=== PATIENT | female | born 1945 | race Caucasian/White ===

== ENCOUNTER 2017-03-16 13:34 | Emergency (ER) | payer MEDICARE ==
--- NOTE | 2017-03-16 13:42 | ED ---
General Adult HPI - General Stated complaint: WEAKNESS X 3 DAYS Time Seen by Provider: 03/16/17 13:35 Source: RN notes reviewed - History of Present Illness Initial comments: This is a 71-year-old female who presents to the emergency department with past medical history significant for hypertension and COPD as well as atrial fibrillation. Patient comes in emergency department today stating that she has become weaker and weaker over the last 24 hours. Patient states yesterday she was feeling exhausted but this morning she was so exhausted that she couldn't get out of bed and walk around. Patient denies any other symptoms. Patient denies being out in the hot weather. Patient denies headache patient denies lightheadedness patient denies any near syncopal episode. Patient denies any numbness or weakness. Patient denies any palpitations chest pain or difficulty breathing. Patient denies any shortness of breath. Patient denies any recent fever chills or cough. Patient denies abdominal pain patient denies nausea vomiting diarrhea. Patient denies any dysuria hematuria urinary frequency. Patient states that last time she had this kind of fatigue and exhaustion she had a urinary tract infection without symptoms as well and it turned out that she was septic. - Related Data Home Medications Medication Instructions Recorded Confirmed Albuterol Inhaler [Ventolin Hfa 2 puff INHALATION RT-QID PRN 04/13/16 03/16/17 Inhaler] Atorvastatin [Lipitor] 20 mg PO HS 04/13/16 03/16/17 Calcium Carbonate [Tums] 500 mg PO TID PRN 04/13/16 03/16/17 Ferrous Sulfate [Feosol] 325 mg PO Q72H 04/13/16 03/16/17 Flecainide Acetate 50 mg PO Q12HR 04/13/16 03/16/17 Fluticasone/Salmeterol [Advair 1 puff INHALATION RT-BID 04/13/16 03/16/17 500-50 Diskus] Sertraline HCl [Zoloft] 100 mg PO DAILY 04/13/16 03/16/17 rOPINIRole HCL [Requip] 0.5 mg PO HS 04/13/16 03/16/17 Furosemide [Lasix] 40 mg PO BID 06/02/16 03/16/17 Acetaminophen Tab [Tylenol Tab] 500 - 1,000 mg PO Q6HR PRN 03/16/17 03/16/17 Calcium Carbonate/Vitamin D3 1 tab PO BID 03/16/17 03/16/17 [Calcium 600-Vit D3 200 Tablet] Docusate [Colace] 100 mg PO DAILY 03/16/17 03/16/17 Famotidine 20 mg PO DAILY 03/16/17 03/16/17 HYDROcodone/APAP 7.5-325MG [[place] 1 tab PO DAILY PRN 03/16/17 03/16/17 7.5-325] Ipratropium-Albuterol Nebulize 3 ml INHALATION RT-TID 03/16/17 03/16/17 [Duoneb 0.5 mg-3 mg/3 ml Soln] Levothyroxine Sodium [Synthroid] 137 mcg PO DAILY 03/16/17 03/16/17 Sennosides [Senna Lax] 8.6 mg PO BID PRN 03/16/17 03/16/17 guaiFENesin [Mucinex] 600 mg PO DAILY PRN 03/16/17 03/16/17 Previous Rx's Medication Instructions Recorded Rivaroxaban [Xarelto] 15 mg PO W/SUPPER tab 04/15/16 Potassium Chloride ER [K-Dur 20] 20 meq PO DAILY #30 tab.er.prt 04/18/16 ALPRAZolam [Xanax] 0.25 mg PO HS PRN #10 tablet 06/05/16 Allergies Allergy/AdvReac Type Severity Reaction Status Date / Time codeine Allergy Unknown Verified 03/16/17 14:19 methylprednisolone Allergy Unknown Verified 03/16/17 14:19 [From Medrol] Penicillins Allergy Unknown Verified 03/16/17 14:19 pentazocine Allergy Unknown Verified 03/16/17 14:19 hydromorphone HCl AdvReac Hallucinati Verified 03/16/17 14:19 [From Dilaudid] ons Review of Systems ROS Statement: Those systems with pertinent positive or pertinent negative responses have been documented in the HPI. ROS Other: All systems not noted in ROS Statement are negative. Past Medical History Past Medical History: Atrial Fibrillation, Asthma, Heart Failure, COPD, GERD/ Reflux, Hyperlipidemia, Hypertension History of Any Multi-Drug Resistant Organisms: None Reported Past Surgical History: Appendectomy, Cholecystectomy, Orthopedic Surgery, Tonsillectomy, Tubal Ligation Additional Past Surgical History / Comment(s): right shoulder surgery and pain, bilateral knee replacements Past Anesthesia/Blood Transfusion Reactions: No Reported Reaction Past Psychological History: Anxiety, Depression, Panic Disorder Smoking Status: Former smoker Past Alcohol Use History: None Reported Past Drug Use History: None Reported - Past Family History Mother Additional Family Medical History / Comment(s): emphysema Father Family Medical History: CVA/TIA General Exam - General Exam Comments Initial Comments: GENERAL: Patient is well-developed and well-nourished. Patient is nontoxic and well- hydrated and is in mild distress. ENT: Neck is soft and supple. No significant lymphadenopathy is noted. Oropharynx is clear. Moist mucous membranes. Neck has full range of motion without eliciting any pain. EYES: The sclera were anicteric and conjunctiva were pink and moist. Extraocular movements were intact and pupils were equal round and reactive to light. Eyelids were unremarkable. PULMONARY: Unlabored respirations. Good breath sounds bilaterally. No audible rales rhonchi or wheezing was noted. CARDIOVASCULAR: There is a regular rate and rhythm without any murmurs gallops or rubs. ABDOMEN: Soft and nontender with normal bowel sounds. No palpable organomegaly was noted. There is no palpable pulsatile mass. SKIN: Skin is clear with no lesions or rashes and otherwise unremarkable. NEUROLOGIC: Patient is alert and oriented x3. Cranial nerves II through XII are grossly intact. Motor and sensory are also intact. Normal speech, volume and content. Symmetrical smile. MUSCULOSKELETAL: Normal extremities with adequate strength and full range of motion. No lower extremity swelling or edema. No calf tenderness. LYMPHATICS: No significant lymphadenopathy is noted PSYCHIATRIC: Normal psychiatric evaluation. Normal interpersonal interactions appears functionally intact in deals appropriately with others. No signs of depression. No signs of anxiety. Course Vital Signs 03/16/17 13:41 Temperature 97.4 F L Pulse Rate 60 Respiratory 18 Rate Blood Pressure 135/61 O2 Sat by Pulse 94 L Oximetry Medical Decision Making - Medical Decision Making EKG shows sinus bradycardia 59 bpm SD interval was 136 dresses 92 QT interval 474 QTC is 469. Patient's EKG has a lot of noise and it however there is some inverted T waves in leads 3 and aVF that were not there in an old EKG. Psych that he has some poor R-wave progression but there is no obvious ST segment elevation though the computer indicated that there is I went and discussed the results with the patient's she indicated to me that maybe she started because she can't sleep more than 2 hours a night. Patient states she supposed be wearing BiPAP but she does not wear. Patient states she' ll follow-up with her primary medical care doctor to see if he can prescribe her something for sleep. Patient does not want to get anything for sleep here today. - Lab Data Result diagrams: 03/16/17 14:45 03/16/17 14:45 Lab Results 03/16/17 03/16/17 03/16/17 Range/Units 14:09 14:45 14:45 WBC (3.8-10.6) k/uL RBC (3.80-5.40) m/uL Hgb (11.4-16.0) gm/dL Hct (34.0-46.0) % MCV (80.0-100.0) fL MCH (25.0-35.0) pg MCHC (31.0-37.0) g/dL RDW (11.5-15.5) % Plt Count (150-450) k/uL Neutrophils % % Lymphocytes % % Monocytes % % Eosinophils % % Basophils % % Neutrophils # (1.3-7.7) k/uL Lymphocytes # (1.0-4.8) k/uL Monocytes # (0-1.0) k/uL Eosinophils # (0-0.7) k/uL Basophils # (0-0.2) k/uL PT (9.0-12.0) sec INR (<1.1) APTT (22.0-30.0) sec Sodium 140 (137-145) mmol/L Potassium 4.1 (3.5-5.1) mmol/L Chloride 100 (98-107) mmol/L Carbon Dioxide 30 (22-30) mmol/L Anion Gap 10 mmol/L BUN 17 (7-17) mg/dL Creatinine 0.75 (0.52-1.04) mg/dL Est GFR (MDRD) Af Amer >60 (>60 ml/min/1.73 sqM) Est GFR (MDRD) Non-Af >60 (>60 ml/min/1.73 sqM) Glucose 89 (74-99) mg/dL Calcium 9.4 (8.4-10.2) mg/dL Magnesium 1.9 (1.6-2.3) mg/dL Total Bilirubin 0.9 (0.2-1.3) mg/dL AST 24 (14-36) U/L ALT 20 (9-52) U/L Alkaline Phosphatase 101 (38-126) U/L Total Creatine Kinase 67 (30-135) U/L CK-MB (CK-2) 1.3 (0.0-2.4) ng/mL CK-MB (CK-2) Rel Index 1.9 Troponin I 0.014 (0.000-0.034) ng/mL Total Protein 6.2 L (6.3-8.2) g/dL Albumin 3.9 (3.5-5.0) g/dL TSH 0.866 (0.465-4.680) mIU/L Free T4 1.89 (0.78-2.19) ng/dL Urine Color Light Yellow Urine Appearance Clear (Clear) Urine pH 7.5 (5.0-8.0) Ur Specific [place] 1.008 (1.001-1.035) Urine Protein Negative (Negative) Urine Glucose (UA) Negative (Negative) Urine Ketones Negative (Negative) Urine Blood Negative (Negative) Urine Nitrite Negative (Negative) Urine Bilirubin Negative (Negative) Urine Urobilinogen <2.0 (<2.0) mg/dL Ur Leukocyte Esterase Negative (Negative) 03/16/17 03/16/17 Range/Units 14:45 14:45 WBC 6.1 (3.8-10.6) k/uL RBC 4.70 (3.80-5.40) m/uL Hgb 14.5 (11.4-16.0) gm/dL Hct 42.8 (34.0-46.0) % MCV 91.1 (80.0-100.0) fL MCH 30.9 (25.0-35.0) pg MCHC 34.0 (31.0-37.0) g/dL RDW 13.5 (11.5-15.5) % Plt Count 202 (150-450) k/uL Neutrophils % 70 % Lymphocytes % 17 % Monocytes % 6 % Eosinophils % 3 % Basophils % 1 % Neutrophils # 4.3 (1.3-7.7) k/uL Lymphocytes # 1.0 (1.0-4.8) k/uL Monocytes # 0.4 (0-1.0) k/uL Eosinophils # 0.2 (0-0.7) k/uL Basophils # 0.0 (0-0.2) k/uL PT 9.9 (9.0-12.0) sec INR 1.0 (<1.1) APTT 23.1 (22.0-30.0) sec Sodium (137-145) mmol/L Potassium (3.5-5.1) mmol/L Chloride (98-107) mmol/L Carbon Dioxide (22-30) mmol/L Anion Gap mmol/L BUN (7-17) mg/dL Creatinine (0.52-1.04) mg/dL Est GFR (MDRD) Af Amer (>60 ml/min/1.73 sqM) Est GFR (MDRD) Non-Af (>60 ml/min/1.73 sqM) Glucose (74-99) mg/dL Calcium (8.4-10.2) mg/dL Magnesium (1.6-2.3) mg/dL Total Bilirubin (0.2-1.3) mg/dL AST (14-36) U/L ALT (9-52) U/L Alkaline Phosphatase (38-126) U/L Total Creatine Kinase (30-135) U/L CK-MB (CK-2) (0.0-2.4) ng/mL CK-MB (CK-2) Rel Index Troponin I (0.000-0.034) ng/mL Total Protein (6.3-8.2) g/dL Albumin (3.5-5.0) g/dL TSH (0.465-4.680) mIU/L Free T4 (0.78-2.19) ng/dL Urine Color Urine Appearance (Clear) Urine pH (5.0-8.0) Ur Specific [place] (1.001-1.035) Urine Protein (Negative) Urine Glucose (UA) (Negative) Urine Ketones (Negative) Urine Blood (Negative) Urine Nitrite (Negative) Urine Bilirubin (Negative) Urine Urobilinogen (<2.0) mg/dL Ur Leukocyte Esterase (Negative) Disposition Clinical Impression: Insomnia, Generalized weakness Disposition: HOME SELF-CARE Condition: Good Instructions: Melatonin (By mouth), Insomnia (ED) Referrals: Christiano Wright MD [Primary Care Provider] - 1-2 days Time of Disposition: 16:04
[2017-03-16 13:44] VITALS: RESP 18
[2017-03-16 14:19] LABS: Appearance,Urine Clear (Clear); Bilirubin,Urine Negative (Negative); Glucose,Urine (UA) Negative (Negative); Ketones,Urine Negative (Negative); Leukocyte Esterase,Urine Negative (Negative); Nitrite,Urine Negative (Negative); PH, Urine 7.5 (5.0-8.0); Protein,Urine Negative (Negative); Specific Gravity,Urine 1.008 (1.001-1.035); UA Billing (MACRO vs. MICRO) CHEM; Urobilinogen,Urine <2.0 mg/dL (<2.0)
--- NOTE | 2017-03-16 14:42 | XR ---
EXAMINATION TYPE: XR chest 2V DATE OF EXAM: 03/16/2017 COMPARISON: 06/03/2016 TECHNIQUE: PA and lateral views submitted. HISTORY: Weakness FINDINGS: Heart is enlarged there is arthropathy of the shoulders and atherosclerotic change aorta. Subsegmenta l changes at both lung bases. Degenerative change of the spine seen with multiple compression deformi ties of indeterminate age. Complete compression fracture was present on the previous x-ray of 06/02/2016. IMPRESSION: 1. Basilar atelectasis favored over pneumonia correlate clinically. 2. Cardiomegaly 3. Age-indeterminate compression deformities with 1 complete compression fracture lower thoracic spin e. Moderate compression fracture not definitively seen on the previous exam.
[2017-03-16 15:04] LABS: Basophils % (A) 1 %; CHCM 34.2; Eosinophils # (A) 0.2 k/uL (0-0.7); Eosinophils % (A) 3 %; HCT 42.8 % (34.0-46.0); HDW 2.63; HGB 14.5 gm/dL (11.4-16.0); Luc # (Auto) 0.18; Luc % (Auto) 3; Lymphocytes % (A) 17 %; MCH 30.9 pg (25.0-35.0); MCV 91.1 fL (80.0-100.0); Mean Platelet Volume 7.6; Monocytes # (A) 0.4 k/uL (0-1.0); Monocytes % (A) 6 %; Neutrophils # (A) 4.3 k/uL (1.3-7.7); Neutrophils % (A) 70 %; RDW 13.5 % (11.5-15.5); WBC 6.1 k/uL (3.8-10.6); WBC (Perox) 6.41
[2017-03-16 15:13] LABS: ALT 20 U/L (9-52); AST 24 U/L (14-36); Alkaline Phosphatase 101 U/L (38-126); Anion Gap 10 mmol/L; Blood Urea Nitrogen 17 mg/dL (7-17); Calcium 9.4 mg/dL (8.4-10.2); Carbon Dioxide 30 mmol/L (22-30); Chloride 100 mmol/L (98-107); Glucose 89 mg/dL (74-99); Magnesium 1.9 mg/dL (1.6-2.3); Non-African American GFR(MDRD) >60 (>60 ml/min/1.73 sqM); Partial Thromboplastin Time 23.1 sec (22.0-30.0); Potassium 4.1 mmol/L (3.5-5.1); Prothrombin Time 9.9 sec (9.0-12.0); Sodium 140 mmol/L (137-145); Total Bilirubin 0.9 mg/dL (0.2-1.3); Total Protein 6.2 g/dL (6.3-8.2)
[2017-03-16 15:41] LABS: Creatine Kinase MB 1.3 ng/mL (0.0-2.4); Troponin I 0.014 ng/mL (0.000-0.034)
[2017-03-16 16:21] VITALS: BP 134/61; PULSE 58; TEMP 98.3
== END 2017-03-16 16:19 | disposition home or self-care (01) ==
LOC: EC 13:34
DX: G47.00 Insomnia, unspecified (principal); R53.1 Weakness; J45.909 Unspecified asthma, uncomplicated; J44.9 Chronic obstructive pulmonary disease, unspecified; K21.9 Gastro-esophageal reflux disease without esophagitis; E78.5 Hyperlipidemia, unspecified; F32.9 Major depressive disorder, single episode, unspecified; I10 Essential (primary) hypertension; Z88.5 Allergy status to narcotic agent; Z88.0 Allergy status to penicillin; Z88.8 Allergy status to other drugs, medicaments and biological substances; Z87.891 Personal history of nicotine dependence; Z79.51 Long term (current) use of inhaled steroids; Z79.899 Other long term (current) drug therapy
CPT/HCPCS: 36415; 71020; 80053; 81003; 82550; 82553; 83735; 84439; 84443; 84484; 85025; 85610; 85730; 93005; 99285

== ENCOUNTER 2017-10-09 09:43 | Inpatient (IN) | payer MEDICARE, OTHER ==
[2017-10-09] MEDS ORDERED: DILTIAZEM 5 MG/1 ML (25ML VIAL) IV STA (09:58)
[2017-10-09] MEDS ORDERED: ACETAMINOPHEN TAB 500 MG TAB PO STA (10:00)
[2017-10-09] MEDS ORDERED: IPRATROPIUM 0.5 MG/2.5 ML NEBU INHALATION STA (10:01)
[2017-10-09] MEDS ORDERED: ALBUTEROL NEBULIZED 2.5 MG/3 ML INHALATION STA (10:01)
--- NOTE | 2017-10-09 10:08 | ED ---
General Adult HPI - General Stated complaint: Difficulty Breathing Time Seen by Provider: 10/09/17 09:44 Source: patient, family, RN notes reviewed, old records reviewed - History of Present Illness Initial comments: 72-year-old female history of atrial fibrillation and COPD presents from the halfway with cough, dyspnea, and x-ray showing pneumonia. States she has been coughing for the past 3 days, been unable to bring up significant sputum. She has also had fever and worsening dyspnea. Denies abdominal pain. Denies chest pain or shortness of breath. Denies significant lower extremity swelling. - Related Data Home Medications Medication Instructions Recorded Confirmed Albuterol Inhaler [Ventolin Hfa 2 puff INHALATION RT-QID PRN 04/13/16 10/09/17 Inhaler] Atorvastatin [Lipitor] 20 mg PO HS 04/13/16 10/09/17 Calcium Carbonate [Tums] 500 mg PO TID PRN 04/13/16 10/09/17 Flecainide Acetate 50 mg PO Q12HR 04/13/16 10/09/17 Fluticasone/Salmeterol [Advair 1 puff INHALATION RT-BID 04/13/16 10/09/17 500-50 Diskus] Sertraline HCl [Zoloft] 100 mg PO DAILY 04/13/16 10/09/17 rOPINIRole HCL [Requip] 0.5 mg PO HS 04/13/16 10/09/17 Furosemide [Lasix] 40 mg PO BID 06/02/16 10/09/17 Acetaminophen Tab [Tylenol Tab] 500 - 1,000 mg PO Q6HR PRN MDD 03/16/17 10/09/17 3,000mg Famotidine 20 mg PO DAILY 03/16/17 10/09/17 HYDROcodone/APAP 7.5-325MG [[place] 1 tab PO Q6H PRN 03/16/17 10/09/17 7.5-325] Ipratropium-Albuterol Nebulize 3 ml INHALATION RT-TID PRN 03/16/17 10/09/17 [Duoneb 0.5 mg-3 mg/3 ml Soln] guaiFENesin [Mucinex] 600 mg PO DAILY PRN 03/16/17 10/09/17 ALPRAZolam [Xanax] 0.25 mg PO TID PRN 10/09/17 10/09/17 Bisacodyl [Dulcolax] 10 mg RECTAL DAILY PRN 10/09/17 10/09/17 Ipratropium-Albuterol Nebulize 3 ml INHALATION RT-BID 10/09/17 10/09/17 [Duoneb 0.5 mg-3 mg/3 ml Soln] Levothyroxine Sodium [Synthroid] 125 mcg PO DAILY 10/09/17 10/09/17 Magnesium Hydroxide [Milk of 2,400 mg PO DAILY PRN 10/09/17 10/09/17 Magnesia] Melatonin 5 mg PO HS 10/09/17 10/09/17 Multivitamins, Thera [Multivitamin 1 tab PO DAILY 10/09/17 10/09/17 (formulary)] Na Phos,M-B/Na Phos,Di-Ba [Fleet 133 ml RECTAL ONCE PRN 10/09/17 10/09/17 Adult] Potassium Chloride ER [K-Dur 20] 20 meq PO DAILY 10/09/17 10/09/17 Rivaroxaban [Xarelto] 15 mg PO W/SUPPER 10/09/17 10/09/17 Sennosides-Docusate Sodium 2 tab PO HS PRN 10/09/17 10/09/17 [Senokot-S] Temazepam [Restoril] 15 mg PO HS 10/09/17 10/09/17 Allergies Allergy/AdvReac Type Severity Reaction Status Date / Time codeine Allergy Unknown Verified 10/09/17 10:11 methylprednisolone Allergy Unknown Verified 10/09/17 10:11 [From Medrol] Penicillins Allergy Unknown Verified 10/09/17 10:11 pentazocine Allergy Unknown Verified 03/16/17 14:19 hydromorphone HCl AdvReac Hallucinati Verified 10/09/17 10:11 [From Dilaudid] ons Review of Systems ROS Statement: Those systems with pertinent positive or pertinent negative responses have been documented in the HPI. ROS Other: All systems not noted in ROS Statement are negative. Past Medical History Past Medical History: Atrial Fibrillation, Asthma, Heart Failure, COPD, GERD/ Reflux, Hyperlipidemia, Hypertension History of Any Multi-Drug Resistant Organisms: None Reported Past Surgical History: Appendectomy, Cholecystectomy, Orthopedic Surgery, Tonsillectomy, Tubal Ligation Additional Past Surgical History / Comment(s): right shoulder surgery and pain, bilateral knee replacements Past Anesthesia/Blood Transfusion Reactions: No Reported Reaction Past Psychological History: Anxiety, Depression, Panic Disorder Smoking Status: Former smoker Past Alcohol Use History: None Reported Past Drug Use History: None Reported - Past Family History Mother Additional Family Medical History / Comment(s): emphysema Father Family Medical History: CVA/TIA General Exam General appearance: alert, in distress Head exam: Present: atraumatic, normocephalic Eye exam: Present: normal appearance, PERRL ENT exam: Present: normal exam Neck exam: Present: normal inspection. Absent: tenderness, meningismus Respiratory exam: Present: respiratory distress, wheezes, accessory muscle use, prolonged expiratory Cardiovascular Exam: Present: tachycardia, irregular rhythm GI/Abdominal exam: Present: soft. Absent: distended, tenderness Extremities exam: Present: normal inspection, normal capillary refill, pedal edema Neurological exam: Present: alert. Absent: motor sensory deficit Psychiatric exam: Present: normal affect, normal mood Skin exam: Present: warm, dry, intact. Absent: cyanosis, diaphoretic Course Vital Signs 10/09/17 10/09/17 10/09/17 10:00 10:03 10:04 Temperature 101.6 F H Pulse Rate 164 H 175 H Respiratory 30 H 30 H Rate Blood Pressure 142/93 O2 Sat by Pulse 92 L Oximetry 10/09/17 10/09/17 10:24 10:25 Temperature Pulse Rate 135 H 165 H Respiratory 22 Rate Blood Pressure 113/61 O2 Sat by Pulse 95 Oximetry EKG Findings - EKG Comments: EKG Findings:: EKG shows A. fib with RVR, left axis deviation, ventricular rate 163, QRS duration 98, QTC 507, no ST segment elevation Medical Decision Making - Medical Decision Making 72-year-old female presenting with dyspnea fever and outpatient x-ray showed pneumonia. X-rays repeated, does show retrocardiac pneumonia. Patient is coming from her halfway she will be treated for healthcare associated pneumonia. Patient is found to be in A. fib, history of A. fib. Rate in the 160s initially, she is given Cardizem and her rate is down trending [facility]. Laboratory studies reveal a blood cell count 13.9, hemoglobin 14.2, troponin is elevated 0.288 this is likely demand ischemia patient has no complaint of chest pain. This level will be trended. Patient is anticoagulated on Xarelto. Diagnosis: A. fib with RVR, healthcare associated pneumonia - Lab Data Result diagrams: 10/09/17 10:08 10/09/17 10:08 Lab Results 10/09/17 10/09/17 10/09/17 Range/Units 10:08 10:08 10:08 WBC 13.9 H (3.8-10.6) k/uL RBC 4.84 (3.80-5.40) m/uL Hgb 14.2 (11.4-16.0) gm/dL Hct 44.0 (34.0-46.0) % MCV 90.9 (80.0-100.0) fL MCH 29.3 (25.0-35.0) pg MCHC 32.3 (31.0-37.0) g/dL RDW 15.7 H (11.5-15.5) % Plt Count 228 (150-450) k/uL Neutrophils % 87 % Lymphocytes % 5 % Monocytes % 7 % Eosinophils % 1 % Basophils % 0 % Neutrophils # 12.0 H (1.3-7.7) k/uL Lymphocytes # 0.7 L (1.0-4.8) k/uL Monocytes # 0.9 (0-1.0) k/uL Eosinophils # 0.1 (0-0.7) k/uL Basophils # 0.0 (0-0.2) k/uL PT (9.0-12.0) sec INR (<1.2) APTT (22.0-30.0) sec VBG pH (7.31-7.41) VBG pCO2 (37-51) mmHg VBG HCO3 (24-28) mmol/L Sodium 133 L (137-145) mmol/L Potassium 3.8 (3.5-5.1) mmol/L Chloride 94 L (98-107) mmol/L Carbon Dioxide 24 (22-30) mmol/L Anion Gap 15 mmol/L BUN 12 (7-17) mg/dL Creatinine 0.67 (0.52-1.04) mg/dL Est GFR (MDRD) Af Amer >60 (>60 ml/min/1.73 sqM) Est GFR (MDRD) Non-Af >60 (>60 ml/min/1.73 sqM) Glucose 95 (74-99) mg/dL Plasma Lactic Acid Raheem (0.7-2.0) mmol/L Calcium 9.7 (8.4-10.2) mg/dL Magnesium 1.6 (1.6-2.3) mg/dL Total Bilirubin 2.5 H (0.2-1.3) mg/dL AST 31 (14-36) U/L ALT 23 (9-52) U/L Alkaline Phosphatase 111 (38-126) U/L Total Creatine Kinase 139 H (30-135) U/L CK-MB (CK-2) 3.8 H* (0.0-2.4) ng/mL CK-MB (CK-2) Rel Index 2.7 Troponin I 0.288 H* (0.000-0.034) ng/mL NT-Pro-B Natriuret Pep pg/mL Total Protein 6.3 (6.3-8.2) g/dL Albumin 3.8 (3.5-5.0) g/dL Influenza Type A RNA (Not Detectd) Influenza Type B (PCR) (Not Detectd) 10/09/17 10/09/17 10/09/17 Range/Units 10:08 10:08 10:08 WBC (3.8-10.6) k/uL RBC (3.80-5.40) m/uL Hgb (11.4-16.0) gm/dL Hct (34.0-46.0) % MCV (80.0-100.0) fL MCH (25.0-35.0) pg MCHC (31.0-37.0) g/dL RDW (11.5-15.5) % Plt Count (150-450) k/uL Neutrophils % % Lymphocytes % % Monocytes % % Eosinophils % % Basophils % % Neutrophils # (1.3-7.7) k/uL Lymphocytes # (1.0-4.8) k/uL Monocytes # (0-1.0) k/uL Eosinophils # (0-0.7) k/uL Basophils # (0-0.2) k/uL PT 10.9 (9.0-12.0) sec INR 1.1 (<1.2) APTT 26.8 (22.0-30.0) sec VBG pH (7.31-7.41) VBG pCO2 (37-51) mmHg VBG HCO3 (24-28) mmol/L Sodium (137-145) mmol/L Potassium (3.5-5.1) mmol/L Chloride (98-107) mmol/L Carbon Dioxide (22-30) mmol/L Anion Gap mmol/L BUN (7-17) mg/dL Creatinine (0.52-1.04) mg/dL Est GFR (MDRD) Af Amer (>60 ml/min/1.73 sqM) Est GFR (MDRD) Non-Af (>60 ml/min/1.73 sqM) Glucose (74-99) mg/dL Plasma Lactic Acid Raheem (0.7-2.0) mmol/L Calcium (8.4-10.2) mg/dL Magnesium (1.6-2.3) mg/dL Total Bilirubin (0.2-1.3) mg/dL AST (14-36) U/L ALT (9-52) U/L Alkaline Phosphatase (38-126) U/L Total Creatine Kinase (30-135) U/L CK-MB (CK-2) (0.0-2.4) ng/mL CK-MB (CK-2) Rel Index Troponin I (0.000-0.034) ng/mL NT-Pro-B Natriuret Pep 2530 pg/mL Total Protein (6.3-8.2) g/dL Albumin (3.5-5.0) g/dL Influenza Type A RNA Not Detected (Not Detectd) Influenza Type B (PCR) Not Detected (Not Detectd) 10/09/17 10/09/17 Range/Units 10:08 10:08 WBC (3.8-10.6) k/uL RBC (3.80-5.40) m/uL Hgb (11.4-16.0) gm/dL Hct (34.0-46.0) % MCV (80.0-100.0) fL MCH (25.0-35.0) pg MCHC (31.0-37.0) g/dL RDW (11.5-15.5) % Plt Count (150-450) k/uL Neutrophils % % Lymphocytes % % Monocytes % % Eosinophils % % Basophils % % Neutrophils # (1.3-7.7) k/uL Lymphocytes # (1.0-4.8) k/uL Monocytes # (0-1.0) k/uL Eosinophils # (0-0.7) k/uL Basophils # (0-0.2) k/uL PT (9.0-12.0) sec INR (<1.2) APTT (22.0-30.0) sec VBG pH 7.40 (7.31-7.41) VBG pCO2 43 (37-51) mmHg VBG HCO3 26 (24-28) mmol/L Sodium (137-145) mmol/L Potassium (3.5-5.1) mmol/L Chloride (98-107) mmol/L Carbon Dioxide (22-30) mmol/L Anion Gap mmol/L BUN (7-17) mg/dL Creatinine (0.52-1.04) mg/dL Est GFR (MDRD) Af Amer (>60 ml/min/1.73 sqM) Est GFR (MDRD) Non-Af (>60 ml/min/1.73 sqM) Glucose (74-99) mg/dL Plasma Lactic Acid Raheem 1.4 (0.7-2.0) mmol/L Calcium (8.4-10.2) mg/dL Magnesium (1.6-2.3) mg/dL Total Bilirubin (0.2-1.3) mg/dL AST (14-36) U/L ALT (9-52) U/L Alkaline Phosphatase (38-126) U/L Total Creatine Kinase (30-135) U/L CK-MB (CK-2) (0.0-2.4) ng/mL CK-MB (CK-2) Rel Index Troponin I (0.000-0.034) ng/mL NT-Pro-B Natriuret Pep pg/mL Total Protein (6.3-8.2) g/dL Albumin (3.5-5.0) g/dL Influenza Type A RNA (Not Detectd) Influenza Type B (PCR) (Not Detectd) Disposition Clinical Impression: COPD (chronic obstructive pulmonary disease), Elevated troponin, Healthcare- associated pneumonia, Atrial fibrillation with RVR Disposition: ADMITTED IP TO THIS HOSP Condition: Serious Referrals: Daquan Freeman DO [Primary Care Provider] - 1-2 days Decision to Admit Reason: Admit from EC Decision Date: 10/09/17 Decision Time: 12:04
[2017-10-09] MEDS ORDERED: DILTIAZEM 125 MG in SODIUM CHLORIDE 0.9% 100 ML IV ONE (10:15)
[2017-10-09 10:20] LABS: Basophils % (A) 0 %; Eosinophils # (A) 0.1 k/uL (0-0.7); Eosinophils % (A) 1 %; HGB 14.2 gm/dL (11.4-16.0); Lymphocytes # (A) 0.7 k/uL (1.0-4.8); Lymphocytes % (A) 5 %; MCH 29.3 pg (25.0-35.0); MCHC 32.3 g/dL (31.0-37.0); MCV 90.9 fL (80.0-100.0); Mean Platelet Volume 8.7; Monocytes # (A) 0.9 k/uL (0-1.0); Monocytes % (A) 7 %; Neutrophils % (A) 87 %; Platelet Count 228 k/uL (150-450); RBC 4.84 m/uL (3.80-5.40); RDW 15.7 % (11.5-15.5); WBC 13.9 k/uL (3.8-10.6)
[2017-10-09 10:32] LABS: ALT 23 U/L (9-52); AST 31 U/L (14-36); Albumin 3.8 g/dL (3.5-5.0); Alkaline Phosphatase 111 U/L (38-126); Anion Gap 15 mmol/L; Blood Urea Nitrogen 12 mg/dL (7-17); Calcium 9.7 mg/dL (8.4-10.2); Carbon Dioxide 24 mmol/L (22-30); Chloride 94 mmol/L (98-107); Glucose 95 mg/dL (74-99); Magnesium 1.6 mg/dL (1.6-2.3); Potassium 3.8 mmol/L (3.5-5.1); Sodium 133 mmol/L (137-145); Total Bilirubin 2.5 mg/dL (0.2-1.3); Total Protein 6.3 g/dL (6.3-8.2)
[2017-10-09 10:34] LABS: INR 1.1 (<1.2); Partial Thromboplastin Time 26.8 sec (22.0-30.0); Prothrombin Time 10.9 sec (9.0-12.0)
[2017-10-09] MEDS ORDERED: SODIUM CHLORIDE 0.9% 500 ML IV ONE ×2 (10:43→11:14)
[2017-10-09] MEDS ORDERED: LORazepam 2 MG/ML INJ IV STA (10:52)
[2017-10-09 10:59] LABS: VBG PH 7.4 (7.31-7.41)
--- NOTE | 2017-10-09 11:04 | XR ---
EXAMINATION TYPE: XR chest 1V portable DATE OF EXAM: 10/09/2017 COMPARISON: Prior chest x-ray 03/16/2017 HISTORY: Difficulty breathing TECHNIQUE: Single frontal view of the chest is obtained. FINDINGS: There is no pleural effusion or pneumothorax seen. Question some retrocardiac increased d ensity. Strand-like densities in the lingula again noted compatible with scarring or atelectasis. The cardiac silhouette size is stable, the heart appears enlarged, appearance may be accentuated by rota tion. There is a spinal curvature. Thoracic compression deformities are not well seen on the frontal view. Acromioclavicular joint arthropathy noted within the shoulders, right shoulder is high riding s uggesting chronic rotator cuff cuff tear. IMPRESSION: Difficult to exclude retrocardiac pneumonia. Follow-up PA and lateral chest radiograph m ay be of benefit. Cardiomegaly.
[2017-10-09 11:10] LABS: Creatine Kinase MB 3.8 ng/mL (0.0-2.4)
[2017-10-09 11:11] LABS: Troponin I 0.288 ng/mL (0.000-0.034)
[2017-10-09] MEDS ORDERED: VANCOMYCIN IV PER PHARMACY 1 EACH MISC MISCELLANE PRN (11:20)
[2017-10-09] MEDS ORDERED: LEVOFLOXACIN 500MG-D5W PMX 500 MG in DEXTROSE/WATER 1 100ML.BAG IVPB STA (11:20)
[2017-10-09] MEDS ORDERED: VANCOMYCIN 1,250 MG in SODIUM CHLORIDE 0.9% 250 ML IVPB STA (11:32)
[2017-10-09] MEDS ORDERED: ACETAMINOPHEN TAB 325 MG TAB PO PRN (11:59)
[2017-10-09] MEDS ORDERED: NALOXONE 0.4 MG/ML 1 ML VIAL IV PRN (11:59)
[2017-10-09] MEDS: SODIUM CHLORIDE 0.9% 1,000 ML IV SCH (13:50)
[2017-10-09 16:32] LABS: Creatine Kinase MB 4.1 ng/mL (0.0-2.4); Troponin I 0.169 ng/mL (0.000-0.034)
[2017-10-09] MEDS: RIVAROXABAN 15 MG TAB PO SCH (18:15)
[2017-10-09] MEDS: FUROSEMIDE 40 MG TAB PO SCH (18:16)
[2017-10-09] MEDS ORDERED: NA PHOS,M-B/NA PHOS,DI-BA 133 ML ENEMA RECTAL PRN (20:28)
[2017-10-09] MEDS ORDERED: CALCIUM CARBONATE 500 MG CHEWABLE PO PRN (20:28)
[2017-10-09] MEDS ORDERED: BISACODYL 10 MG SUPP RECTAL PRN (20:28)
[2017-10-09] MEDS ORDERED: MAGNESIUM HYDROXIDE 2,400 MG/10 ML CUP PO PRN (20:28)
[2017-10-09] MEDS ORDERED: HYDROcodone/APAP 7.5-325MG 1 EACH TAB PO PRN (20:28)
[2017-10-09] MEDS ORDERED: SENNOSIDES-DOCUSATE SODIUM 1 EACH TAB PO PRN (20:28)
[2017-10-09] MEDS ORDERED: guaiFENesin 600 MG TABLET.ER PO PRN (20:28)
[2017-10-09] MEDS: ALPRAZolam 0.25 MG TAB PO PRN (21:49)
[2017-10-09] MEDS: TEMAZEPAM 15 MG CAP PO SCH (21:49)
[2017-10-09] MEDS: MELATONIN 5 MG TABLET PO SCH (21:50)
[2017-10-09] MEDS: ATORVASTATIN 20 MG TAB PO SCH (21:50)
[2017-10-09] MEDS: FLECAINIDE 50 MG TAB PO SCH (21:50)
[2017-10-09] MEDS ORDERED: VANCOMYCIN 1,250 MG in SODIUM CHLORIDE 0.9% 250 ML IVPB SCH (22:00)
[2017-10-09] MEDS: guaiFENesin 600 MG TABLET.ER PO SCH (22:11)
--- NOTE | 2017-10-09 22:11 | HP ---
HISTORY AND PHYSICAL DATE OF ADMISSION: 10/09/2017 PRESENTING COMPLAINT: Short of breath, congested. HISTORY OF PRESENTING COMPLAINT: This is a pleasant 72-year-old patient of Dr. Freeman, resident of [facility], rather extensive medical history, including congestive heart failure, atrial fibrillation, GERD, hypertension, hyperlipidemia. The patient has also T9-T10 vertebral fracture, also has restless leg syndrome, insomnia and a right rotator cuff injury. The patient started off with a cough for 3 days, rather congested, not able to bring up much; febrile, weak, tired, run down, heart heart racing. The patient is found to be in atrial fibrillation with rapid ventricular rate, also had a fever and increased heart rate. At her baseline, patient needs a mechanical lift to be transferred. REVIEW OF SYSTEMS: CONSTITUTIONAL: Febrile, weak, tired. HEENT: As above. RESPIRATORY: As above. CARDIOVASCULAR: As above. GASTROINTESTINAL: Heartburn. GENITOURINARY: None. MUSCULOSKELETAL: Pain in the joints, especially the shoulders. DERMATOLOGICAL: None. HEMATOLOGIC: None. LYMPHATIC: None. PSYCHIATRY: Slightly anxious. NEUROLOGICAL: Restless leg syndrome. PAST MEDICAL HISTORY: Atrial fibrillation, congestive heart failure, COPD, GERD, hyperlipidemia, hypertension, hypothyroid, T9-T10 vertebral fractures, gait dysfunction, uses a mechanical lift to the wheelchair, insomnia, restless legs syndrome, osteoporosis, hypothyroid, urinary and bowel some incontinence, right rotator cuff injury, skin tear around the right elbow. PAST SURGICAL HISTORY: Appendectomy, cholecystectomy, tonsillectomy, bilateral knee replacement. PSYCH HISTORY: Anxiety, depression. SOCIAL: Lives at [facility]. Can feed herself, needs help with other ADLs. The patient smoked for close to 30 years, a pack a day, stopped in 1996. Family history of COPD. HOME MEDICATIONS: 1. Requip 0.5 mg p.o. q.h.s. 2. Mucinex 600 mg p.o. daily p.r.n. 3. Restoril 50 mg p.o. q.h.s. 4. Zoloft 100 mg p.o. daily. 5. Senokot-S 2 tablets p.o. q.h.s. 6. Xarelto 15 mg p.o. with supper. 7. Potassium 20 mEq a day. 8. Fleet Adult p.r.n. 9. Multivitamin 1 tablet p.o. daily. 10.Melatonin 5 mg p.o. q.h.s. 11.Milk of magnesia 2400 mg p.o. daily p.r.n. 12.Synthroid 125 mcg p.o. daily. 13.DuoNeb b.i.d. and t.i.d. p.r.n. 14.[place] 7.5 every 6 hours p.r.n. 15.Lasix 40 mg p.o. b.i.d. 16.Advair 500/50, 1 puff b.i.d. 17.Flecainide 50 mg p.o. q.12. 18.Pepcid 20 mg p.o. daily. 19.Tums 500 mg p.o. t.i.d. p.r.n. 20.Dulcolax 10 mg rectal daily p.r.n. 21.Lipitor 20 mg p.o. q.h.s. 22.Ventolin HFA 2 puffs q.i.d. p.r.n. 23.Tylenol 500-1000 mg every 6 hours p.r.n. 24.Xanax 0.25 t.i.d. p.r.n. ALLERGIES: To CODEINE, MEDROL, PENICILLIN, PENTAZOCINE, DILAUDID. Exact allergies unknown. EXAMINATION: VITAL SIGNS: On presentation, temperature 101.6, pulse 135, respirations 30, blood pressure 142/93, pulse ox 92% on 2L. GENERAL APPEARANCE: Well-built, sitting up, short of breath. EYES: Pupils equal. Conjunctivae normal. HEENT: Oral cavity: White patches. NECK: Short, thick, JVD unable to assess. RESPIRATORY: Increased short of breath. There are accessory muscles at work. LUNGS: Diminished breath sounds. Expiratory crackles. CARDIOVASCULAR: Heart sounds irregular. No edema. ABDOMEN: Soft, nontender. Liver and spleen not palpable. LYMPHATIC: No lymph node palpable in neck or axillae. PSYCHIATRY: Alert and oriented x3. Mood and affect anxious-appearing. NEUROLOGICAL: Pupils equal. Cranial nerve grossly intact. MUSCULOSKELETAL: Limited range of motion on the hips. Osteoarthritis evidence on the hands and knees. INVESTIGATIONS: White count 13.9, hemoglobin 14.2. Potassium 3.8, BUN and creatinine are normal. Troponin 0.2, 0.169. ProBNP 2530. Influenza is negative. Chest x-ray is possible infiltrate. EKG: A. fib. with rapid ventricular rate. ASSESSMENT: 1. Pneumonia, suspect gram-negative organism, present on admission causing acute hypoxic respiratory failure. 2. Persistent atrial fibrillation with rapid ventricular rate. 3. Gastroesophageal reflux disease. 4. Essential hypertension. 5. Hyperlipidemia. 6. Chronic medical debility, uses a mechanical lift for transfer. 7. Acute chronic obstructive pulmonary disease exacerbation in an ex-smoker. 8. Chronic T9-T10 fracture. 9. Chronic restless leg syndrome. 10.Chronic insomnia from multiple medical problems. 11.Right rotator cuff tear. 12.Right elbow skin tear. PLAN: The patient will be put on IV ceftriaxone. Was also put on IV Cardizem through the ER. Will also add Mucinex. Other home medications resumed. Consultation to Cardiology and Pulmonary was done. Care was discussed with the patient. MMDEEPAKL / THOMASN: [id number] /
[2017-10-09] MEDS: cefTRIAXone IN SWFI 1,000 MG/10 ML SYRINGE IVP SCH (22:14)
[2017-10-09 23:06] LABS: Creatine Kinase MB 4.5 ng/mL (0.0-2.4)
[2017-10-09 23:07] LABS: Troponin I 0.097 ng/mL (0.000-0.034)
[2017-10-10] MEDS: LEVOTHYROXINE 125 MCG TAB PO SCH (05:22)
[2017-10-10 06:02] LABS: Basophils # (A) 0.1 k/uL (0-0.2); Basophils % (A) 0 %; Eosinophils % (A) 0 %; HCT 37.2 % (34.0-46.0); HGB 11.8 gm/dL (11.4-16.0); Lymphocytes # (A) 0.7 k/uL (1.0-4.8); Lymphocytes % (A) 5 %; MCHC 31.7 g/dL (31.0-37.0); MCV 91.5 fL (80.0-100.0); Mean Platelet Volume 8.8; Monocytes # (A) 0.8 k/uL (0-1.0); Monocytes % (A) 6 %; Neutrophils # (A) 11.8 k/uL (1.3-7.7); Neutrophils % (A) 87 %; Platelet Count 221 k/uL (150-450); RBC 4.07 m/uL (3.80-5.40); RDW 15.5 % (11.5-15.5); WBC 13.5 k/uL (3.8-10.6)
[2017-10-10 06:09] LABS: INR 1.4 (<1.2); Prothrombin Time 13.3 sec (9.0-12.0)
[2017-10-10 06:18] LABS: ALT 25 U/L (9-52); AST 33 U/L (14-36); Albumin 2.9 g/dL (3.5-5.0); Alkaline Phosphatase 92 U/L (38-126); Anion Gap 12 mmol/L; Blood Urea Nitrogen 12 mg/dL (7-17); Carbon Dioxide 24 mmol/L (22-30); Chloride 101 mmol/L (98-107); Glucose 73 mg/dL (74-99); Magnesium 1.6 mg/dL (1.6-2.3); Potassium 3.3 mmol/L (3.5-5.1); Sodium 137 mmol/L (137-145); Total Bilirubin 1.4 mg/dL (0.2-1.3); Total Protein 5.1 g/dL (6.3-8.2)
[2017-10-10] MEDS: SERTRALINE 100 MG TAB PO SCH (09:33)
[2017-10-10] MEDS: FAMOTIDINE 20 MG TAB PO SCH (09:34)
[2017-10-10] MEDS: POTASSIUM CHLORIDE ER 20 MEQ TAB.ER PO SCH (09:34)
[2017-10-10] MEDS: FUROSEMIDE 40 MG TAB PO SCH ×2 (09:34→17:09)
[2017-10-10] MEDS: FLECAINIDE 50 MG TAB PO SCH ×2 (09:34→20:33)
[2017-10-10] MEDS: guaiFENesin 600 MG TABLET.ER PO SCH ×2 (09:34→20:33)
[2017-10-10] MEDS: MULTIVITAMINS, THERA 1 EACH TAB PO SCH (09:34)
--- NOTE | 2017-10-10 10:55 | P.CRDCN ---
History of Present Illness Consult date: 10/10/17 Requesting physician: Celestine Benitez Reason for Consult (text): Afib w/RVR Chief complaint: Shortness of breath History of present illness: This is a pleasant 72-year-old female patient who resides in [facility], follows with Dr. Hamilton in the office. She has a known history of paroxysmal atrial fibrillation, on flecainide and Xarelto, COPD, hyperlipidemia and hypertension. Presented via EMS from the [facility] with complaints of worsening shortness of breath over the last couple of days. Upon admission she was found to be in atrial fibrillation with rapid ventricular response. She was febrile with a temperature of 101.6 and oxygen saturation was low. His x-ray showed difficult to exclude retrocardiac pneumonia. BNP 2530. Troponins were elevated at 0.288, 0.169 and 0.097. She does deny having any complaints of chest discomfort including pain pressure, tightness or heaviness. She does complain of an occasional flutter in her chest. In the emergency room she was initiated on a Cardizem drip and blood pressure dropped significantly, currently on flecainide only. Initially she was on BiPAP but is currently on 4-6 L nasal cannula. Upon examination, staff just finished cleaning the patient up and changing her putting. Patient is significantly short of breath with audible wheezing. Past Medical History Past Medical History: Atrial Fibrillation, Asthma, Heart Failure, COPD, GERD/ Reflux, Hyperlipidemia, Hypertension, Thyroid Disorder Additional Past Medical History / Comment(s): Past pneumonia, t9-t10 vertebral fractures with gait dysfunction-mechanically lifted to wheelchair, UTI 08/2017, anemia, insomnia, RLS, osteoporosis, hypothyroid, incontinence bladder/bowel, past cellulitis L lower leg, current skin tear L elbow, current torn R rotator cuff. History of Any Multi-Drug Resistant Organisms: None Reported Past Surgical History: Appendectomy, Cholecystectomy, Orthopedic Surgery, Tonsillectomy, Tubal Ligation Additional Past Surgical History / Comment(s): right shoulder rotator cuff repair, bilateral knee replacements, colonoscopy. Past Anesthesia/Blood Transfusion Reactions: No Reported Reaction Smoking Status: Former smoker - Past Family History Mother Family Medical History: COPD Additional Family Medical History / Comment(s): emphysema Father Family Medical History: CVA/TIA Medications and Allergies Home Medications Medication Instructions Recorded Confirmed Type Albuterol Inhaler [Ventolin Hfa 2 puff INHALATION RT-QID PRN 04/13/16 10/09/17 History Inhaler] Atorvastatin [Lipitor] 20 mg PO HS 04/13/16 10/09/17 History Calcium Carbonate [Tums] 500 mg PO TID PRN 04/13/16 10/09/17 History Flecainide Acetate 50 mg PO Q12HR 04/13/16 10/09/17 History Fluticasone/Salmeterol [Advair 1 puff INHALATION RT-BID 04/13/16 10/09/17 History 500-50 Diskus] Sertraline HCl [Zoloft] 100 mg PO DAILY 04/13/16 10/09/17 History rOPINIRole HCL [Requip] 0.5 mg PO HS 04/13/16 10/09/17 History Furosemide [Lasix] 40 mg PO BID 06/02/16 10/09/17 History Acetaminophen Tab [Tylenol Tab] 500 - 1,000 mg PO Q6HR PRN MDD 03/16/17 History 3,000mg Famotidine 20 mg PO DAILY 03/16/17 10/09/17 History HYDROcodone/APAP 7.5-325MG [[place] 1 tab PO Q6H PRN 03/16/17 10/09/17 History 7.5-325] Ipratropium-Albuterol Nebulize 3 ml INHALATION RT-TID PRN 03/16/17 10/09/17 History [Duoneb 0.5 mg-3 mg/3 ml Soln] guaiFENesin [Mucinex] 600 mg PO DAILY PRN 03/16/17 10/09/17 History ALPRAZolam [Xanax] 0.25 mg PO TID PRN 10/09/17 10/09/17 History Bisacodyl [Dulcolax] 10 mg RECTAL DAILY PRN 10/09/17 10/09/17 History Ipratropium-Albuterol Nebulize 3 ml INHALATION RT-BID 10/09/17 10/09/17 History [Duoneb 0.5 mg-3 mg/3 ml Soln] Levothyroxine Sodium [Synthroid] 125 mcg PO DAILY 10/09/17 10/09/17 History Magnesium Hydroxide [Milk of 2,400 mg PO DAILY PRN 10/09/17 10/09/17 History Magnesia] Melatonin 5 mg PO HS 10/09/17 10/09/17 History Multivitamins, Thera [Multivitamin 1 tab PO DAILY 10/09/17 10/09/17 History (formulary)] Na Phos,M-B/Na Phos,Di-Ba [Fleet 133 ml RECTAL ONCE PRN 10/09/17 10/09/17 History Adult] Potassium Chloride ER [K-Dur 20] 20 meq PO DAILY 10/09/17 10/09/17 History Rivaroxaban [Xarelto] 15 mg PO W/SUPPER 10/09/17 10/09/17 History Sennosides-Docusate Sodium 2 tab PO HS PRN 10/09/17 10/09/17 History [Senokot-S] Temazepam [Restoril] 15 mg PO HS 10/09/17 10/09/17 History Allergies Allergy/AdvReac Type Severity Reaction Status Date / Time codeine Allergy Unknown Verified 10/09/17 10:11 methylprednisolone Allergy Unknown Verified 10/09/17 10:11 [From Medrol] Penicillins Allergy Unknown Verified 10/09/17 10:11 pentazocine Allergy Unknown Verified 03/16/17 14:19 hydromorphone HCl AdvReac Hallucinati Verified 10/09/17 10:11 [From Dilaudid] ons Physical Exam Vitals: Vital Signs Temp Pulse Pulse Resp BP BP Pulse Ox 10/10/17 09:37 97.5 F L 102 H 18 108/71 96 10/10/17 04:00 97.0 F L 128 H 20 99/63 93 L 10/10/17 00:00 98.1 F 117 H 20 90/59 97 10/09/17 20:11 98 10/09/17 20:00 97.0 F L 144 H 22 111/76 97 10/09/17 19:01 137 H 126/85 10/09/17 14:00 142 H 121/68 10/09/17 13:45 132 H 88/55 10/09/17 13:30 90/58 10/09/17 13:15 99.5 F 140 H 27 H 92/73 96 10/09/17 13:00 98.0 F 136 H 20 97/54 95 10/09/17 12:15 130 H 20 116/59 95 10/09/17 11:24 135 H 16 100/77 95 Intake and Output 10/09/17 10/10/17 10/10/17 22:59 06:59 14:59 Intake Total 530 Output Total 500 Balance -500 530 Intake: Intake, IV Titration 290 Amount Diltiazem 125 mg In 50 Sodium Chloride 0.9% 100 ml @ 5 MG/HR 5 mls/hr IV .Q24H ONE Rx#:[id number] Sodium Chloride 0.9% 1, 240 000 ml @ 20 mls/hr IV . Q24H [facility] Rx#:[id number] Oral 240 Output: Urine 500 Other: Voiding Method Bedpan Bedpan # Voids 2 3 # Bowel Movements 2 Weight 72.5 kg PHYSICAL EXAMINATION: HEENT: Head is atraumatic, normocephalic. Pupils equal, round. Neck is supple. There is no elevated jugular venous pressure. HEART EXAMINATION: Heart sounds irregularly irregular, S1 and S2 normal. Tachycardia noted. CHEST EXAMINATION: Lungs audible wheezing throughout, use of accessory muscles. No chest wall tenderness is noted on palpation or with deep breathing. ABDOMEN: Soft, nontender. Bowel sounds are heard. No organomegaly noted. EXTREMITIES: 2+ peripheral pulses with evidence of 1+ peripheral edema and no calf tenderness noted. NEUROLOGIC patient is awake, alert and oriented x3. . Results 10/10/17 05:31 10/10/17 05:31 Cardiac Enzymes 10/09/17 10/09/17 10/09/17 Range/Units 10:08 10:08 15:44 AST 31 (14-36) U/L CK-MB (CK-2) 3.8 H* 4.1 H* (0.0-2.4) ng/mL Troponin I 0.288 H* 0.169 H* (0.000-0.034) ng/mL 10/09/17 10/10/17 Range/Units 22:03 05:31 AST 33 (14-36) U/L CK-MB (CK-2) 4.5 H* (0.0-2.4) ng/mL Troponin I 0.097 H* (0.000-0.034) ng/mL Coagulation 10/10/17 Range/Units 05:31 PT 13.3 H (9.0-12.0) sec CBC 10/10/17 Range/Units 05:31 WBC 13.5 H (3.8-10.6) k/uL RBC 4.07 (3.80-5.40) m/uL Hgb 11.8 (11.4-16.0) gm/dL Hct 37.2 (34.0-46.0) % Plt Count 221 (150-450) k/uL Comprehensive Metabolic Panel 10/09/17 10/10/17 Range/Units 10:08 05:31 Sodium 133 L 137 (137-145) mmol/L Potassium 3.8 3.3 L (3.5-5.1) mmol/L Chloride 94 L 101 (98-107) mmol/L Carbon Dioxide 24 24 (22-30) mmol/L BUN 12 12 (7-17) mg/dL Creatinine 0.67 0.70 (0.52-1.04) mg/dL Glucose 95 73 L (74-99) mg/dL Calcium 9.7 9.0 (8.4-10.2) mg/dL AST 31 33 (14-36) U/L ALT 23 25 (9-52) U/L Alkaline Phosphatase 111 92 (38-126) U/L Total Protein 6.3 5.1 L (6.3-8.2) g/dL Albumin 3.8 2.9 L (3.5-5.0) g/dL Current Medications Generic Name Dose Route Start Last Admin Trade Name Freq PRN Reason Stop Dose Admin Acetaminophen 650 mg 10/09/17 11:59 Tylenol Tab PO Q6HR PRN Mild Pain or Fever > 100.5 Hydrocodone Bitart/Acetaminophen 1 each 10/09/17 20:28 [place] 7.5-325 PO Q6H PRN Pain Alprazolam 0.25 mg 10/09/17 11:57 10/09/17 21:49 Xanax PO 0.25 mg TID PRN Administration Anxiety Atorvastatin Calcium 20 mg 10/09/17 21:00 10/09/17 21:50 Lipitor PO 20 mg HS SALONI Administration Bisacodyl 10 mg 10/09/17 20:28 Dulcolax RECTAL DAILY PRN Constipation Calcium Carbonate/Glycine 500 mg 10/09/17 20:28 Tums PO TID PRN Heartburn Ceftriaxone Sodium 1,000 mg 10/09/17 21:30 10/09/17 22:14 Rocephin IVP 1,000 mg Q24HR SALONI Administration Famotidine 20 mg 10/10/17 09:00 10/10/17 09:34 Pepcid PO 20 mg DAILY SALONI Administration Flecainide Acetate 50 mg 10/09/17 21:00 10/10/17 09:34 Tambocor PO 50 mg Q12HR SALONI Administration Furosemide 40 mg 10/09/17 16:00 10/10/17 09:34 Lasix PO 40 mg BID@0900,1600 SALONI Administration Guaifenesin 1,200 mg 10/09/17 21:30 10/10/17 09:34 Mucinex PO 1,200 mg Q12HR SALONI Administration Sodium Chloride 1,000 mls @ 20 mls/hr 10/09/17 12:00 10/09/17 13:50 Saline 0.9% IV 20 mls/hr .Q24H SALONI Administration Levothyroxine Sodium 125 mcg 10/10/17 06:30 10/10/17 05:22 Synthroid PO 125 mcg 0630 SALONI Administration Magnesium Hydroxide 2,400 mg 10/09/17 20:28 Milk Of Magnesia PO DAILY PRN Constipation Melatonin 5 mg 10/09/17 21:00 10/09/17 21:50 Melatonin PO 5 mg HS SALONI Administration Multivitamins 1 each 10/10/17 12:00 10/10/17 09:34 Theragran PO 1 each DAILY@1200 SALONI Administration Naloxone HCl 0.2 mg 10/09/17 11:59 Narcan IV Q2M PRN Opioid Reversal Potassium Chloride 20 meq 10/10/17 09:00 10/10/17 09:34 K-Dur 20 PO 20 meq DAILY SALONI Administration Rivaroxaban 15 mg 10/09/17 17:30 10/09/17 18:15 Xarelto PO 15 mg W/SUPPER SALONI Administration Ropinirole HCl 0.5 mg 10/09/17 21:00 10/09/17 21:48 Requip PO 0.5 mg HS SALONI Administration Senna/Docusate Sodium 2 each 10/09/17 20:28 Senokot-S PO HS PRN Constipation Sertraline HCl 100 mg 10/10/17 09:00 10/10/17 09:33 Zoloft PO 100 mg DAILY SALONI Administration Sodium Biphosphate/Sodium Phosphate 133 ml 10/09/17 20:28 Fleet Adult RECTAL ONCE PRN Constipation Temazepam 15 mg 10/09/17 21:00 10/09/17 21:49 Restoril PO 15 mg HS SALONI Administration Intake and Output 10/09/17 10/10/17 10/10/17 22:59 06:59 14:59 Intake Total 530 Output Total 500 Balance -500 530 Intake: Intake, IV Titration 290 Amount Diltiazem 125 mg In 50 Sodium Chloride 0.9% 100 ml @ 5 MG/HR 5 mls/hr IV .Q24H [facility] Rx#:[id number] Sodium Chloride 0.9% 1, 240 000 ml @ 20 mls/hr IV . Q24H [facility] Rx#:[id number] Oral 240 Output: Urine 500 Other: Voiding Method Bedpan Bedpan # Voids 2 3 # Bowel Movements 2 Weight 72.5 kg 10/10/17 05:31 10/10/17 05:31 EKG Interpretations (text) Atrial Fibrillation with rapid ventricular response Assessment and Plan Assessment: #1 acute exacerbation of COPD for underlying pneumonia #2 atrial fibrillation with rapid ventricular response, known history of paroxysmal atrial fibrillation #3 elevated troponin without symptoms of chest discomfort #4 acute hypoxic respiratory failure #5 febrile illness likely pneumonia #6 hypertension, currently hypotensive Plan: From cardiology's perspective, we will obtain a 2-D echo with Doppler. We will check thyroid function. We'll add metoprolol 25 mg by mouth twice a day. We will continue to follow the patient at further recommendations accordingly. E [employer]ORDINATOR note has been reviewed, I agree with a documented findings and plan of care. Patient was seen and examined.
[2017-10-10] MEDS: IPRATROPIUM-ALBUTEROL 3 ML NEB INHALATION SCH ×4 (11:51→23:26)
[2017-10-10] MEDS: INSULIN ASPART 100 UNIT/ML 1 ML 10 ML VIAL SQ SCH ×3 (11:57→21:12)
[2017-10-10] MEDS: cefTRIAXone IN SWFI 1,000 MG/10 ML SYRINGE IVP SCH (12:01)
[2017-10-10] MEDS: methylPREDNISolone SOD SUCCI 40 MG/ML 1 ML VIAL IV SCH ×2 (12:01→17:08)
[2017-10-10] MEDS: SODIUM CHLORIDE 0.9% 1,000 ML IV SCH (12:02)
[2017-10-10 12:08] LABS: Glucose,Whole Blood 65 mg/dL (75-99)
[2017-10-10 16:13] LABS: Glucose,Whole Blood 144 mg/dL (75-99)
[2017-10-10] MEDS ORDERED: POTASSIUM CHLORIDE ER 20 MEQ TAB.ER PO STA (16:31)
--- NOTE | 2017-10-10 16:32 | P.PN ---
Progress Note - Text Progress Note Date: 10/10/17 DATE OF SERVICE: 10/10/2017 PRESENTING COMPLAINT: Short of breath, congested HISTORY OF PRESENT ILLNESS: 72-year-old female who presents with a cough for the past 3 days congested not able to bring up much a bridal weak and tired and rundown heart racing. Clonidine atrial fibrillation with rapid ventricular rate as well as a fever increased heart rate. On arrival patient was found to be in atrial fibrillation with rapid ventricular rate also had a fever and increased heart rate. Of note patient's baseline activity she requires mechanical lift be transferred. INTERVAL HISTORY: 10/10/2017 Lying in bed tired appearing, audible wheezing, states she feels better than she did when she arrived yesterday. Remains in A. fib on the monitor Cardizem continues, Appetite continues to be low and she continues to be sleepy daughter at the bedside concerned about her sleepiness. Patient has to be moved at the lift in and out of the bed, this is her baseline. Last BM 10/10/2017. REVIEW OF SYSTEMS: Done for constitutional ,cardiovascular, GI, pulmonary with relevant findings as above. CURRENT MEDICATIONS Tylenol, Cut Off, DuoNeb, Xanax, Lipitor, Dulcolax, Pulmicort, Tums, ceftriaxone IV, Pepcid, Tambocor, Lasix, Mucinex, NovoLog, Synthroid, milk of Magnesia, melatonin, Solu-Medrol, Lopressor, multivitamin, potassium chloride, Xarelto, Requip, Senokot S, Zoloft, Fleet Enema as needed, temazepam. PHYSICAL EXAM VITAL SIGNS: Temperature 97.5, heart rate 102, respirations 18, blood pressure 108/71, oxygen saturation 96% on 4 L. GENERAL APPEARANCE:. Lying in bed, anxious appearing, when awake. HEENT: Normocephalic, Pupils equal. Conjunctiva normal. JVD not raised. Mass not palpable.: RESPIRATORY: Respiratory effort increased. Lungs diminished bilaterally poor air entry expiratory and inspiratory wheezing on auscultation. CARDIOVASCULAR: Irregular rhythm. Moderate edema. ABDOMEN: Soft. Liver and spleen not palpable. No tenderness. No mass palpable. PSYCHIATRY: Alert and oriented x3. Mood and affect she is appearing. MUSCULOSKELETAL: Good range of motion on the hips, osteoarthritis evidenced on hands and knees. INVESTIGATIONS: White blood cell count 13.5, INR 1.4, potassium 3.3, Accu-Cheks noted. ASSESSMENT: -Pneumonia suspect gram-negative organism, present on admission causing acute hypoxic respiratory failure, slow to respond -Persistent atrial flutter fibrillation with rapid ventricular rate, slow to respond -Gastroesophageal reflux disease. -Essential hypertension. -Hyperlipidemia. -Chronic blood medical debility uses a mechanical lift for transfer. -Acute chronic obstructive pulmonary disease exacerbation and an ex-smoker. -Chronic T9 through T10 fracture. -Chronic restless leg syndrome. -Chronic insomnia for multiple medical problems. -Right rotator cuff tear. -Right elbow skin tear. PLAN: We'll obtain a 2-D echo with Doppler, check thyroid function, metoprolol 25 mg by mouth twice a day added per cardiology. Continue nebulized bronchodilators Mucinex steroids and antibiotic therapy in the form of ceftriaxone. Plan of care discussed with the daughter and patient they are in agreement we will follow closely. ASSISTANT TECHNICIAN statement: Patient was seen and examined by nurse practitioner Tracy Brothers and all elements of the case discussed with attending Dr. Benitez
[2017-10-10 16:51] LABS: Glucose,Whole Blood 157 mg/dL (75-99)
[2017-10-10] MEDS: METOPROLOL TARTRATE 25 MG TAB PO SCH ×2 (17:08→20:33)
[2017-10-10] MEDS: RIVAROXABAN 15 MG TAB PO SCH (17:08)
[2017-10-10 18:21] LABS: Hemoglobin A1C 5.3 % (4.0-6.0)
[2017-10-10] MEDS: BUDESONIDE 0.5 MG/2 ML NEBU INHALATION SCH (19:46)
[2017-10-10 20:09] LABS: Glucose,Whole Blood 118 mg/dL (75-99)
--- NOTE | 2017-10-10 20:15 | PN ---
PROGRESS NOTE DATE OF SERVICE: 10/10/2017 ATTENDING NOTE: The patient seen and examined by me. I discussed with my nurse practitioner, Ms. Brothers. This is a patient with atrial fibrillation; tired, short of breath. EXAMINATION: Afebrile, heart rate up to 128, blood pressure 118/64. LUNGS: Expiratory crackles and wheezing. HEART: Rate uncontrolled. ASSESSMENT: 1. Pneumonia suspect gram-negative organism. 2. Persistent atrial flutter/fibrillation, uncontrolled. 3. Acute chronic obstructive pulmonary disease exacerbation, uncontrolled. PLAN: Continue current medication, treatment plan, supportive care, bronchodilators, antibiotics. MMODL / IJN: [id number] /
[2017-10-10] MEDS: ATORVASTATIN 20 MG TAB PO SCH (20:33)
[2017-10-10] MEDS: MELATONIN 5 MG TABLET PO SCH (20:33)
[2017-10-10] MEDS: TEMAZEPAM 15 MG CAP PO SCH (20:36)
[2017-10-10] MEDS ORDERED: IPRATROPIUM-ALBUTEROL 3 ML NEB INHALATION PRN (23:23)
[2017-10-11] MEDS: methylPREDNISolone SOD SUCCI 40 MG/ML 1 ML VIAL IV SCH ×4 (00:21→23:09)
[2017-10-11] MEDS: LEVOTHYROXINE 125 MCG TAB PO SCH (05:41)
[2017-10-11 05:53] LABS: Glucose,Whole Blood 129 mg/dL (75-99)
[2017-10-11 06:45] LABS: Anion Gap 12 mmol/L; Blood Urea Nitrogen 15 mg/dL (7-17); Calcium 9.2 mg/dL (8.4-10.2); Carbon Dioxide 26 mmol/L (22-30); Chloride 100 mmol/L (98-107); Glucose 134 mg/dL (74-99); Potassium 3.9 mmol/L (3.5-5.1); Sodium 138 mmol/L (137-145)
[2017-10-11] MEDS: BUDESONIDE 0.5 MG/2 ML NEBU INHALATION SCH ×2 (07:50→20:09)
[2017-10-11] MEDS: IPRATROPIUM-ALBUTEROL 3 ML NEB INHALATION SCH ×4 (07:50→20:12)
[2017-10-11] MEDS: INSULIN ASPART 100 UNIT/ML 1 ML 10 ML VIAL SQ SCH ×4 (07:54→20:51)
[2017-10-11] MEDS: guaiFENesin 600 MG TABLET.ER PO SCH ×2 (08:00→20:14)
[2017-10-11] MEDS: FLECAINIDE 50 MG TAB PO SCH ×2 (08:00→20:14)
[2017-10-11] MEDS: cefTRIAXone IN SWFI 1,000 MG/10 ML SYRINGE IVP SCH (08:00)
[2017-10-11] MEDS: FAMOTIDINE 20 MG TAB PO SCH (08:00)
[2017-10-11] MEDS: POTASSIUM CHLORIDE ER 20 MEQ TAB.ER PO SCH (08:00)
[2017-10-11] MEDS: FUROSEMIDE 40 MG TAB PO SCH ×2 (08:00→15:53)
[2017-10-11] MEDS: METOPROLOL TARTRATE 25 MG TAB PO SCH ×3 (08:01→20:16)
--- NOTE | 2017-10-11 09:15 | P.CNPUL ---
History of Present Illness Consult date: 10/10/17 (Late entry note) Reason for consult: dyspnea, cough, hypoxemia, pneumonia Chief complaint: Shortness of breath cough for 2-3 day duration History of present illness: Ms. Deedee Parsons is a 72-year-old female who is a resident of [facility] care facility patient has a history of severe COPD as well as issues associated with arrhythmia and chronic atrial fibrillation patient has not been doing very well for the last 2-3 days with progressive increased shortness of breath cough and a spiking fever due to those problem patient was transferred to emergency department she was found to be in A. fib with rapid ventricular response and acute exacerbation of CHF in addition patient was spiking fever as well with temperature of 101.6 she was found to be in heart failure with elevated BNP over 2500 and mildly elevated troponin patient also found to have a acute hypoxic respirator failure requiring BiPAP and-and oxygen 4-6 L she responded well with the BiPAP eventually has been taken off patient was started on IV steroids and breathing treatments and given extra furosemide with that symptoms improve him a there are some issues associated fluctuating blood pressure was seen as well due to Cardizem drip however eventually was taken off Review of Systems All systems: negative Past Medical History Past Medical History: Atrial Fibrillation, Asthma, Heart Failure, COPD, GERD/ Reflux, Hyperlipidemia, Hypertension, Thyroid Disorder Additional Past Medical History / Comment(s): Past pneumonia, t9-t10 vertebral fractures with gait dysfunction-mechanically lifted to wheelchair, UTI 08/2017, anemia, insomnia, RLS, osteoporosis, hypothyroid, incontinence bladder/bowel, past cellulitis L lower leg, current skin tear L elbow, current torn R rotator cuff. History of Any Multi-Drug Resistant Organisms: None Reported Past Surgical History: Appendectomy, Cholecystectomy, Orthopedic Surgery, Tonsillectomy, Tubal Ligation Additional Past Surgical History / Comment(s): right shoulder rotator cuff repair, bilateral knee replacements, colonoscopy. Past Anesthesia/Blood Transfusion Reactions: No Reported Reaction Smoking Status: Former smoker - Past Family History Mother Family Medical History: COPD Additional Family Medical History / Comment(s): emphysema Father Family Medical History: CVA/TIA Medications and Allergies Home Medications Medication Instructions Recorded Confirmed Type Albuterol Inhaler [Ventolin Hfa 2 puff INHALATION RT-QID PRN 04/13/16 10/09/17 History Inhaler] Atorvastatin [Lipitor] 20 mg PO HS 04/13/16 10/09/17 History Calcium Carbonate [Tums] 500 mg PO TID PRN 04/13/16 10/09/17 History Flecainide Acetate 50 mg PO Q12HR 04/13/16 10/09/17 History Fluticasone/Salmeterol [Advair 1 puff INHALATION RT-BID 04/13/16 10/09/17 History 500-50 Diskus] Sertraline HCl [Zoloft] 100 mg PO DAILY 04/13/16 10/09/17 History rOPINIRole HCL [Requip] 0.5 mg PO HS 04/13/16 10/09/17 History Furosemide [Lasix] 40 mg PO BID 06/02/16 10/09/17 History Acetaminophen Tab [Tylenol Tab] 500 - 1,000 mg PO Q6HR PRN MDD 03/16/17 History 3,000mg Famotidine 20 mg PO DAILY 03/16/17 10/09/17 History HYDROcodone/APAP 7.5-325MG [[place] 1 tab PO Q6H PRN 03/16/17 10/09/17 History 7.5-325] Ipratropium-Albuterol Nebulize 3 ml INHALATION RT-TID PRN 03/16/17 10/09/17 History [Duoneb 0.5 mg-3 mg/3 ml Soln] guaiFENesin [Mucinex] 600 mg PO DAILY PRN 03/16/17 10/09/17 History ALPRAZolam [Xanax] 0.25 mg PO TID PRN 10/09/17 10/09/17 History Bisacodyl [Dulcolax] 10 mg RECTAL DAILY PRN 10/09/17 10/09/17 History Ipratropium-Albuterol Nebulize 3 ml INHALATION RT-BID 10/09/17 10/09/17 History [Duoneb 0.5 mg-3 mg/3 ml Soln] Levothyroxine Sodium [Synthroid] 125 mcg PO DAILY 10/09/17 10/09/17 History Magnesium Hydroxide [Milk of 2,400 mg PO DAILY PRN 10/09/17 10/09/17 History Magnesia] Melatonin 5 mg PO HS 10/09/17 10/09/17 History Multivitamins, Thera [Multivitamin 1 tab PO DAILY 10/09/17 10/09/17 History (formulary)] Na Phos,M-B/Na Phos,Di-Ba [Fleet 133 ml RECTAL ONCE PRN 10/09/17 10/09/17 History Adult] Potassium Chloride ER [K-Dur 20] 20 meq PO DAILY 10/09/17 10/09/17 History Rivaroxaban [Xarelto] 15 mg PO W/SUPPER 10/09/17 10/09/17 History Sennosides-Docusate Sodium 2 tab PO HS PRN 10/09/17 10/09/17 History [Senokot-S] Temazepam [Restoril] 15 mg PO HS 10/09/17 10/09/17 History Allergies Allergy/AdvReac Type Severity Reaction Status Date / Time codeine Allergy Unknown Verified 10/09/17 10:11 methylprednisolone Allergy Unknown Verified 10/09/17 10:11 [From Medrol] Penicillins Allergy Unknown Verified 10/09/17 10:11 pentazocine Allergy Unknown Verified 03/16/17 14:19 hydromorphone HCl AdvReac Hallucinati Verified 10/09/17 10:11 [From Dilaudid] ons Physical Exam Vitals: Vital Signs Temp Pulse Pulse Resp BP Pulse Ox 10/11/17 08:04 97.5 F L 124 H 24 115/66 96 10/11/17 08:03 100 10/11/17 07:50 104 H 10/11/17 04:00 96.4 F L 127 H 20 102/72 95 10/11/17 00:00 96.7 F L 101 H 20 93/57 95 10/10/17 23:35 118 H 10/10/17 23:26 117 H 10/10/17 20:03 118 H 10/10/17 20:00 96.0 F L 105 H 18 90/58 96 10/10/17 19:48 105 H 96 10/10/17 16:00 97.7 F 124 H 24 108/64 96 10/10/17 15:33 108 H 10/10/17 15:18 100 10/10/17 12:05 112 H 10/10/17 12:00 97.6 F 124 H 24 94/57 96 10/10/17 11:51 104 H 10/10/17 09:37 97.5 F L 102 H 18 108/71 96 Intake and Output 10/10/17 10/11/17 10/11/17 22:59 06:59 14:59 Intake Total 530 Output Total 500 Balance 30 Intake: Intake, IV Titration 480 Amount Sodium Chloride 0.9% 1, 480 000 ml @ 20 mls/hr IV . Q24H SALONI Rx#:[id number] Oral 50 Output: Urine 500 Other: Voiding Method Diaper Diaper Diaper Incontinent Incontinent Incontinent # Voids 1 3 Weight 72.5 kg 75.2 kg - Constitutional General appearance: average body habitus, cooperative, disheveled, severe distress - EENT Eyes: PERRLA, normal appearance ENT: hard of hearing Ears: bilateral: normal - Neck Neck: normal ROM Carotids: bilateral: upstroke normal, bruit absent - Respiratory Respiratory: bilateral: diminished, rales (Predominantly at the bases), rhonchi (Inspiratory expiratory), wheezing (Inspiratory and expiratory), prolonged expiration, negative: CTA, dullness, prolonged inspiration - Cardiovascular Rhythm: irregularly irregular Heart sounds: normal: S1, S2 - Gastrointestinal General gastrointestinal: normal bowel sounds, soft - Neurologic Neurologic: CNII-XII intact - Musculoskeletal Musculoskeletal: generalized weakness, strength equal bilaterally - Psychiatric Psychiatric: A&O x's 3, appropriate affect, intact judgment & insight Results - Laboratory Findings CBC and BMP: 10/10/17 05:31 10/11/17 05:53 PT/INR, D-dimer PT 13.3 sec (9.0-12.0) H 10/10/17 05:31 INR 1.4 (<1.2) H 10/10/17 05:31 Abnormal lab findings: Abnormal Labs 10/09/17 10/09/17 10/09/17 10:08 10:08 10:08 WBC 13.9 H RDW 15.7 H Neutrophils # 12.0 H Lymphocytes # 0.7 L PT INR Sodium 133 L Potassium Chloride 94 L Glucose POC Glucose (mg/dL) Total Bilirubin 2.5 H Total Creatine Kinase 139 H CK-MB (CK-2) 3.8 H* Troponin I 0.288 H* Total Protein Albumin 10/09/17 10/09/17 10/10/17 15:44 22:03 05:31 WBC 13.5 H RDW Neutrophils # 11.8 H Lymphocytes # 0.7 L PT INR Sodium Potassium Chloride Glucose POC Glucose (mg/dL) Total Bilirubin Total Creatine Kinase 171 H 223 H CK-MB (CK-2) 4.1 H* 4.5 H* Troponin I 0.169 H* 0.097 H* Total Protein Albumin 10/10/17 10/10/17 10/10/17 05:31 05:31 11:47 WBC RDW Neutrophils # Lymphocytes # PT 13.3 H INR 1.4 H Sodium Potassium 3.3 L Chloride Glucose 73 L POC Glucose (mg/dL) 65 L Total Bilirubin 1.4 H Total Creatine Kinase CK-MB (CK-2) Troponin I Total Protein 5.1 L Albumin 2.9 L 10/10/17 10/10/17 10/10/17 16:11 16:46 20:07 WBC RDW Neutrophils # Lymphocytes # PT INR Sodium Potassium Chloride Glucose POC Glucose (mg/dL) 144 H 157 H 118 H Total Bilirubin Total Creatine Kinase CK-MB (CK-2) Troponin I Total Protein Albumin 10/11/17 10/11/17 05:48 05:53 WBC RDW Neutrophils # Lymphocytes # PT INR Sodium Potassium Chloride Glucose 134 H POC Glucose (mg/dL) 129 H Total Bilirubin Total Creatine Kinase CK-MB (CK-2) Troponin I Total Protein Albumin - Diagnostic Findings Chest x-ray: report reviewed, image reviewed (Prominent interstitium noted in the lingula and area as well as retrocardiac area with a differential diagnosis of pneumonia versus congestive heart failure) Additional studies: EKG performed on 10/09/2017 revealed atrial fibrillation with rapid ventricular response along with left axis deviation along with nonspecific ST-T wave changes Assessment and Plan Assessment: Sepsis associated with pneumonia likely left lower lobe and lingular lobe Atrial fibrillation with rapid ventricular response Congestive heart failure likely acute diastolic heart failure related to above with elevated d-dimer Non-ST segment elevated RI cannot be excluded Generalized weakness and medical debility due to multifactorial problems and issues Borderline hypokalemia Plan: Patient has been initiated on diuretics, antibiotics, breathing treatments, IV steroids follow clinical course closely and continue supportive care for further recommendations pending plan of care as per clinical response of the patient would maintain patient on and maintain patient on home medications and peptic ulcer disease prophylaxis Time with Patient: Greater than 30
--- NOTE | 2017-10-11 09:19 | P.PN ---
Subjective Progress Note Date: 10/11/17 Principal diagnosis: Left lower lobe and left lingula lobe pneumonia, sepsis, acute hypoxic respiratory failure, acute exacerbation of CHF with acute diastolic heart failure, atrial fibrillation with rapid ventricular response 10/11/2017, patient seen and evaluated examined during the rounds this morning, overall spiking fever Petrin in respiratory status slightly better she is on 4- 6 L oxygen getting breathing treatments however has been noted to somewhat somnolent but arousable she did receive Xanax last night which is discontinuedatthispointoftime we'll closely monitor observe clinical course Ms. Deedee aPrsons is a 72-year-old female who is a resident of [facility] patient has a history of severe COPD as well as issues associated with arrhythmia and chronic atrial fibrillation patient has not been doing very well for the last 2-3 days with progressive increased shortness of breath cough and a spiking fever due to those problem patient was transferred to emergency department she was found to be in A. fib with rapid ventricular response and acute exacerbation of CHF in addition patient was spiking fever as well with temperature of 101.6 she was found to be in heart failure with elevated BNP over 2500 and mildly elevated troponin patient also found to have a acute hypoxic respirator failure requiring BiPAP and-and oxygen 4-6 L she responded well with the BiPAP eventually has been taken off patient was started on IV steroids and breathing treatments and given extra furosemide with that symptoms improve him a there are some issues associated fluctuating blood pressure was seen as well due to Cardizem drip however eventually was taken off Objective - Vital Signs Vital signs: Vital Signs Temp 97.5 F L 10/11/17 08:04 Pulse 127 H 10/11/17 08:04 Resp 24 10/11/17 08:04 BP 115/66 10/11/17 08:04 Pulse Ox 96 10/11/17 08:04 Intake & Output 10/10/17 10/11/17 10/11/17 18:59 06:59 18:59 Intake Total 180 530 Output Total 500 Balance 180 30 Weight 75.2 kg Intake: Intake, IV Titration 480 Amount Sodium Chloride 0.9% 1, 480 000 ml @ 20 mls/hr IV . Q24H SALONI Rx#:[id number] Oral 180 50 Output: Urine 500 Other: Voiding Method Bedpan Diaper Diaper Incontinent Incontinent # Voids 2 3 # Bowel Movements 2 - Exam - Constitutional General appearance: average body habitus, cooperative, disheveled, severe distress - EENT Eyes: PERRLA, normal appearance ENT: hard of hearing Ears: bilateral: normal - Neck Neck: normal ROM Carotids: bilateral: upstroke normal, bruit absent - Respiratory Respiratory: bilateral: diminished, rales (Predominantly at the bases), rhonchi (Inspiratory expiratory), wheezing (Inspiratory and expiratory), prolonged expiration, negative: CTA, dullness, prolonged inspiration - Cardiovascular Rhythm: irregularly irregular Heart sounds: normal: S1, S2 - Gastrointestinal General gastrointestinal: normal bowel sounds, soft - Neurologic Neurologic: CNII-XII intact - Musculoskeletal Musculoskeletal: generalized weakness, strength equal bilaterally - Psychiatric Psychiatric: A&O x's 3, appropriate affect, intact judgment & insight, slow to respond thought to be related to Given last night which is being discontinued - Labs CBC & Chem 7: 10/10/17 05:31 10/11/17 05:53 Labs: Abnormal Lab Results - Last 24 Hours (Table) 10/10/17 10/10/17 10/10/17 Range/Units 11:47 16:11 16:46 Glucose (74-99) mg/dL POC Glucose (mg/dL) 65 L 144 H 157 H (75-99) mg/dL 10/10/17 10/11/17 10/11/17 Range/Units 20:07 05:48 05:53 Glucose 134 H (74-99) mg/dL POC Glucose (mg/dL) 118 H 129 H (75-99) mg/dL Microbiology - Last 24 Hours (Table) 10/09/17 10:08 Blood Culture - Preliminary Blood No Growth after 24 hours Assessment and Plan Assessment: Altered mental status likely related to Xanax patient is being monitored and observed Sepsis associated with pneumonia likely left lower lobe and lingular lobe Atrial fibrillation with rapid ventricular response Congestive heart failure likely acute diastolic heart failure related to above with elevated d-dimer Non-ST segment elevated MN cannot be excluded Generalized weakness and medical debility due to multifactorial problems and issues Borderline hypokalemia Plan: Patient to be maintained on diuretics, antibiotics, breathing treatments, IV steroids follow clinical course closely and continue supportive care for further recommendations pending plan of care as per clinical response of the patient would maintain patient on and maintain patient on home medications and peptic ulcer disease prophylaxis. We'll obtain a follow-up chest x-ray monitor clinical course closely care plan discussed with the RN and respiratory therapy at length Time with Patient: Greater than 30
[2017-10-11] MEDS: SODIUM CHLORIDE 0.9% 1,000 ML IV SCH (11:36)
[2017-10-11] MEDS: SERTRALINE 100 MG TAB PO SCH (11:40)
[2017-10-11] MEDS: MULTIVITAMINS, THERA 1 EACH TAB PO SCH (11:40)
[2017-10-11 11:42] LABS: Glucose,Whole Blood 132 mg/dL (75-99)
--- NOTE | 2017-10-11 14:49 | PN ---
PROGRESS NOTE Mrs. Parsons is a 72-year-old female with a history of paroxysmal atrial fibrillation, who presented with symptoms of progressive dyspnea and was found to be in atrial fibrillation with rapid ventricular response. She has continued to be dyspneic. She has no chest pain or palpitation. She denies any dizziness. No syncope. She has no clear nausea. Her ventricular response is under better control. She continues to be at this time on Lipitor 20 mg daily, flecainide 50 mg twice a day, Lasix 40 mg twice a day, metoprolol 25 mg twice a day. PHYSICAL EXAMINATION: Blood pressure 115/60 with a heart rate in the low 100s. Lungs was scattered rhonchi. HEART: Irregularly irregular S1, S2. No S3. No rub. ABDOMEN: Soft, nontender. Extremities: No significant edema. LAB DATA: BUN and creatinine 15 and 0.7, potassium 3.9. IMPRESSION: 1. Paroxysmal atrial fibrillation, back in atrial fibrillation. 2. Evidence of exacerbation of chronic obstructive pulmonary disease with sepsis. RECOMMENDATION: I will increase the dose of a beta myra. Continue rest of medical regimen. Depending on her progress, further recommendations will be made. We will continue on the anticoagulation as present. MMODL / IJN: [id number] /
[2017-10-11] MEDS: RIVAROXABAN 15 MG TAB PO SCH (15:53)
--- NOTE | 2017-10-11 16:36 | P.PN ---
Progress Note - Text Progress Note Date: 10/11/17 DATE OF SERVICE: 10/11/2017 PRESENTING COMPLAINT: Short of breath, congested HISTORY OF PRESENT ILLNESS: 72-year-old female who presents with a cough for the past 3 days congested not able to bring up much a bridal weak and tired and rundown heart racing. Clonidine atrial fibrillation with rapid ventricular rate as well as a fever increased heart rate. On arrival patient was found to be in atrial fibrillation with rapid ventricular rate also had a fever and increased heart rate. Of note patient's baseline activity she requires mechanical lift be transferred. INTERVAL HISTORY: 10/11/2017: Lying in bed appears somewhat more comfortable less wheezing noted, complains of right shoulder pain. Afebrile, continues to be in atrial fibrillation, rate in the 110s to 120s. Cardizem drip discontinued, remains on Tambocor and beta myra. Ate bites of her breakfast, mobility is accomplished with a Olga Lidia lift. This is her baseline. Pulmonology to see the patient. Last BM 2017. 10/10/2017 Lying in bed tired appearing, audible wheezing, states she feels better than she did when she arrived yesterday. Remains in A. fib on the monitor Cardizem continues, Appetite continues to be low and she continues to be sleepy daughter at the bedside concerned about her sleepiness. Patient has to be moved at the lift in and out of the bed, this is her baseline. Last BM 10/10/2017. REVIEW OF SYSTEMS: Done for constitutional ,cardiovascular, GI, pulmonary with relevant findings as above. CURRENT MEDICATIONS Tylenol, [place], DuoNeb, Xanax, Lipitor, Dulcolax, Pulmicort, Tums, ceftriaxone IV, Pepcid, Tambocor, Lasix, Mucinex, NovoLog, Synthroid, milk of Magnesia, melatonin, Solu-Medrol, Lopressor, multivitamin, potassium chloride, Xarelto, Requip, Senokot S, Zoloft, Fleet Enema as needed, temazepam. PHYSICAL EXAM VITAL SIGNS: Temperature 97.7, pulse 131, respiratory rate 18, blood pressure 115/72, oxygen saturation 95% on 3 L. GENERAL APPEARANCE:. Lying in bed, somewhat anxious appearing. HEENT: Normocephalic, Pupils equal. Conjunctiva normal. JVD not raised. Mass not palpable.: RESPIRATORY: Respiratory effort increased. Lungs diminished bilaterally poor air entry expiratory and inspiratory wheezing on auscultation. CARDIOVASCULAR: Irregular rhythm. Moderate edema. ABDOMEN: Soft. Liver and spleen not palpable. No tenderness. No mass palpable. PSYCHIATRY: Alert and oriented x3. Mood and affect she is appearing. MUSCULOSKELETAL: Good range of motion on the hips, osteoarthritis evidenced on hands and knees. INVESTIGATIONS: White blood cell count 13.5, INR 1.4, potassium 3.3, Accu-Cheks noted. ASSESSMENT: - Pneumonia suspect gram-negative organism, present on admission causing acute hypoxic respiratory failure, slow to respond -Persistent atrial flutter fibrillation, uncontrolled, slow to respond -Gastroesophageal reflux disease. -Essential hypertension. -Hyperlipidemia. -Chronic blood medical debility uses a mechanical lift for transfer. -Acute chronic obstructive pulmonary disease exacerbation and an ex-smoker, uncontrolled -Chronic T9 through T10 fracture. -Chronic restless leg syndrome. -Chronic insomnia for multiple medical problems. -Right rotator cuff tear. -Right elbow skin tear. PLAN: Continue diuretics, antibiotics in the form of ceftriaxone, Mucinex, nebulized bronchodilators, Solu-Medrol for COPD exacerbation. Beta myra increased for controlled atrial flutter/fibrillation. Discharge planning for the next 24-48 hours. Plan of care discussed with the daughter and patient they are in agreement we will follow closely. INSOLE TACK PULLER HAND statement: Patient was seen and examined by nurse practitioner Tracy Brothers and all elements of the case discussed with attending Dr. Benitez
[2017-10-11 16:44] LABS: Glucose,Whole Blood 136 mg/dL (75-99)
--- NOTE | 2017-10-11 18:04 | PN ---
PROGRESS NOTE DATE OF SERVICE: 10/11/17 ATTENDING NOTE: Patient seen and examined by me. I discussed with nurse practitioner, Ms. Brothers. The patient has got less wheezing, less audible wheezing, ate small amounts. Heart rate is still running about 110s-120. The patient is also on Cardizem drip. Daughter at the bedside. The patient wants to eat [place] food. EXAMINATION: Afebrile, heart rate 120, respiratory 20, blood pressure 102/72, pulse ox 95% on 6 L. General appearance: Lying in bed. LUNGS: Decreased breath sounds. Decreased wheezing and crackles. Psych AO x3. INVESTIGATIONS: Potassium 3.9, Accu-Cheks noted. Blood cultures negative. ASSESSMENT: 1. Pneumonia suspect gram-negative organism causing acute hypoxic respiratory failure/persistent atrial flutter fibrillation. Still uncontrolled. 2. Acute chronic obstructive pulmonary disease exacerbation. PLAN: Patient is on DuoNeb, IV ceftriaxone, p.o. Lasix, IV Solu-Medrol. The patient is slowly improving. We will still need at least 1 or 2 days in the hospital. Care was discussed with daughter at the bedside with the patient. The patient is also on Lopressor and Tambocor. MMODL / IJN: [id number] /
[2017-10-11] MEDS: MELATONIN 5 MG TABLET PO SCH (20:15)
[2017-10-11] MEDS: ATORVASTATIN 20 MG TAB PO SCH (20:17)
[2017-10-11] MEDS: TEMAZEPAM 15 MG CAP PO SCH (20:26)
[2017-10-11] MEDS: ALPRAZolam 0.25 MG TAB PO PRN (20:26)
[2017-10-11 20:39] LABS: Glucose,Whole Blood 150 mg/dL (75-99)
[2017-10-12 06:17] LABS: Glucose,Whole Blood 109 mg/dL (75-99)
[2017-10-12] MEDS: INSULIN ASPART 100 UNIT/ML 1 ML 10 ML VIAL SQ SCH ×4 (06:43→21:22)
[2017-10-12] MEDS: LEVOTHYROXINE 125 MCG TAB PO SCH (06:43)
[2017-10-12 07:32] LABS: Anion Gap 9 mmol/L; Blood Urea Nitrogen 20 mg/dL (7-17); Calcium 9.4 mg/dL (8.4-10.2); Carbon Dioxide 27 mmol/L (22-30); Chloride 101 mmol/L (98-107); Glucose 126 mg/dL (74-99); Sodium 137 mmol/L (137-145)
[2017-10-12] MEDS: BUDESONIDE 0.5 MG/2 ML NEBU INHALATION SCH ×2 (07:58→20:45)
[2017-10-12] MEDS: IPRATROPIUM-ALBUTEROL 3 ML NEB INHALATION SCH ×4 (07:58→20:44)
[2017-10-12] MEDS: methylPREDNISolone SOD SUCCI 40 MG/ML 1 ML VIAL IV SCH (08:36)
[2017-10-12] MEDS: FLECAINIDE 50 MG TAB PO SCH ×2 (08:37→20:05)
[2017-10-12] MEDS: METOPROLOL TARTRATE 25 MG TAB PO SCH ×4 (08:37→23:42)
[2017-10-12] MEDS: FAMOTIDINE 20 MG TAB PO SCH (08:37)
[2017-10-12] MEDS: cefTRIAXone IN SWFI 1,000 MG/10 ML SYRINGE IVP SCH (08:37)
[2017-10-12] MEDS: guaiFENesin 600 MG TABLET.ER PO SCH ×2 (08:37→20:05)
[2017-10-12] MEDS: MULTIVITAMINS, THERA 1 EACH TAB PO SCH (08:37)
[2017-10-12] MEDS: POTASSIUM CHLORIDE ER 20 MEQ TAB.ER PO SCH (08:37)
[2017-10-12] MEDS: FUROSEMIDE 40 MG TAB PO SCH ×2 (08:37→16:38)
[2017-10-12] MEDS: SERTRALINE 100 MG TAB PO SCH (08:38)
--- NOTE | 2017-10-12 08:46 | ECHOF ---
Referral Reason:AF, elevated trops MEASUREMENTS -------- HEIGHT: 157.5 cm WEIGHT: 72.1 kg BP: RAP: 5.00 mmHg RVSP: 20.18 mmHg FINDINGS -------- Atrial fibrillation. This was a technically difficult study with suboptimal views. Limited Study Grossly normal LV size and systolic function. Unable to comment on regional wall motion. The RV was not well visualized. The left atrium was not well visualized. The right atrium was not well visualized. 1.5mg of Definity was utilized for enhancement of images The aortic valve was not well visualized. The mitral valve was not well visualized. The tricuspid valve was not well visualized. The pulmonic valve was not well visualized. CONCLUSIONS -------- 1. Atrial fibrillation. 2. This was a technically difficult study with suboptimal views. 3. Limited Study 4. Grossly normal LV size and systolic function. Unable to comment on regional wall motion. 5. The RV was not well visualized. 6. The left atrium was not well visualized. 7. The right atrium was not well visualized. 8. 1.5mg of Definity was utilized for enhancement of images 9. The aortic valve was not well visualized. 10. The mitral valve was not well visualized. 11. The tricuspid valve was not well visualized. 12. The pulmonic valve was not well visualized. TRUCK REPAIR SERVICE ESTIMATOR: Gretel Melendez RD
--- NOTE | 2017-10-12 11:18 | P.PN ---
Subjective Progress Note Date: 10/12/17 Principal diagnosis: Left lower lobe and left lingula lobe pneumonia, sepsis, acute hypoxic respiratory failure, acute exacerbation of CHF with acute diastolic heart failure, atrial fibrillation with rapid ventricular response, altered mental status and confusion likely multifactorial 10/12/2017, patient seen and evaluated examined during the rounds from respiratory standpoint her wheezing cuff congestion slightly improved breathing more comfortably she is on just 2 L oxygen she does not require BiPAP at nighttime, confusion however remains an issue which is slightly worse than baseline her daughter is present at the bedside as well, she has expressed that patient is bedbound most of the time at [facility] 10/11/2017, patient seen and evaluated examined during the rounds this morning, overall spiking fever Petrin in respiratory status slightly better she is on 4- 6 L oxygen getting breathing treatments however has been noted to somewhat somnolent but arousable she did receive Xanax last night which is discontinuedatthispointoftime we'll closely monitor observe clinical course Ms. Deedee Parsons is a 72-year-old female who is a resident of [facility] patient has a history of severe COPD as well as issues associated with arrhythmia and chronic atrial fibrillation patient has not been doing very well for the last 2-3 days with progressive increased shortness of breath cough and a spiking fever due to those problem patient was transferred to emergency department she was found to be in A. fib with rapid ventricular response and acute exacerbation of CHF in addition patient was spiking fever as well with temperature of 101.6 she was found to be in heart failure with elevated BNP over 2500 and mildly elevated troponin patient also found to have a acute hypoxic respirator failure requiring BiPAP and-and oxygen 4-6 L she responded well with the BiPAP eventually has been taken off patient was started on IV steroids and breathing treatments and given extra furosemide with that symptoms improve him a there are some issues associated fluctuating blood pressure was seen as well due to Cardizem drip however eventually was taken off Objective - Vital Signs Vital signs: Vital Signs Temp 97.5 F L 10/12/17 08:40 Pulse 122 H 10/12/17 08:40 Resp 24 10/12/17 08:40 BP 116/62 10/12/17 08:40 Pulse Ox 94 L 10/12/17 08:40 Intake & Output 10/11/17 10/12/17 10/12/17 18:59 06:59 18:59 Intake Total 350 260 0 Output Total 500 Balance 350 -240 0 Weight 83 kg Intake: IV 60 Sodium Chloride 0.9% 1, 60 000 ml @ 20 mls/hr IV . Q24H [facility] Rx#:[id number] Oral 350 200 0 Output: Urine 500 Other: Voiding Method Diaper Diaper Diaper Incontinent Incontinent Incontinent # Voids 2 1 - Exam - Constitutional General appearance: average body habitus, cooperative, disheveled, severe distress - EENT Eyes: PERRLA, normal appearance ENT: hard of hearing Ears: bilateral: normal - Neck Neck: normal ROM Carotids: bilateral: upstroke normal, bruit absent - Respiratory Respiratory: bilateral: diminished, rales (Predominantly at the bases), rhonchi (Inspiratory expiratory), wheezing (Inspiratory and expiratory), prolonged expiration, negative: CTA, dullness, prolonged inspiration - Cardiovascular Rhythm: irregularly irregular Heart sounds: normal: S1, S2 - Gastrointestinal General gastrointestinal: normal bowel sounds, soft - Neurologic Neurologic: CNII-XII intact - Musculoskeletal Musculoskeletal: generalized weakness, strength equal bilaterally - Psychiatric Psychiatric: A&O x's 2, appropriate affect, intact judgment & insight, some level of confusion is still there - Labs CBC & Chem 7: 10/10/17 05:31 10/12/17 06:12 Labs: Abnormal Lab Results - Last 24 Hours (Table) 10/11/17 10/11/17 10/11/17 Range/Units 11:35 16:39 20:32 BUN (7-17) mg/dL Glucose (74-99) mg/dL POC Glucose (mg/dL) 132 H 136 H 150 H (75-99) mg/dL 10/12/17 10/12/17 Range/Units 06:12 06:15 BUN 20 H (7-17) mg/dL Glucose 126 H (74-99) mg/dL POC Glucose (mg/dL) 109 H (75-99) mg/dL Microbiology - Last 24 Hours (Table) 10/09/17 10:08 Blood Culture - Preliminary Blood No Growth after 48 hours Assessment and Plan Assessment: Altered mental status likely related to Xanax patient is being monitored and observed, also contribution from a baseline dementia and Alzheimer's disease, some affect from IV steroids cannot be excluded,Will lower down to once daily and tapered Sepsis associated with pneumonia likely left lower lobe and lingular lobe Atrial fibrillation with rapid ventricular response Congestive heart failure likely acute diastolic heart failure related to above with elevated d-dimer Non-ST segment elevated GA cannot be excluded Generalized weakness and medical debility due to multifactorial problems and issues Borderline hypokalemia Plan: Patient to be maintained on diuretics, antibiotics, breathing treatments, IV steroids follow clinical course closely and continue supportive care for further recommendations pending plan of care as per clinical response of the patient would maintain patient on and maintain patient on home medications and peptic ulcer disease prophylaxis. We'll obtain a follow-up chest x-ray monitor clinical course closely care plan discussed with the daughter,RN and respiratory therapy at length Time with Patient: Greater than 30
[2017-10-12 11:58] LABS: Glucose,Whole Blood 105 mg/dL (75-99)
[2017-10-12] MEDS: SODIUM CHLORIDE 0.9% 1,000 ML IV SCH (12:07)
--- NOTE | 2017-10-12 15:21 | P.PN ---
Subjective Progress Note Date: 10/12/17 History of present illness: This is a pleasant 72-year-old female patient who resides in [facility], follows with Dr. Hamilton in the office. She has a known history of paroxysmal atrial fibrillation, on flecainide and Xarelto, COPD, hyperlipidemia and hypertension. Presented via EMS from the [facility] with complaints of worsening shortness of breath over the last couple of days. Upon admission she was found to be in atrial fibrillation with rapid ventricular response. She was febrile with a temperature of 101.6 and oxygen saturation was low. His x-ray showed difficult to exclude retrocardiac pneumonia. BNP 2530. Troponins were elevated at 0.288, 0.169 and 0.097. She does deny having any complaints of chest discomfort including pain pressure, tightness or heaviness. She does complain of an occasional flutter in her chest. In the emergency room she was initiated on a Cardizem drip and blood pressure dropped significantly, currently on flecainide only. Initially she was on BiPAP but is currently on 4-6 L nasal cannula. Upon examination, staff just finished cleaning the patient up and changing her putting. Patient is significantly short of breath with audible wheezing. 10/12/2007 Patient seen and examined this morning, breathing seems to be somewhat improved today overall. Denies any chest discomfort, no dizziness or lightheadedness. Heart rate this morning continues to be in the 120 range. Patient has considerable wheezing throughout today. Objective - Vital Signs Vital signs: Vital Signs Temp 97.6 F 10/12/17 11:58 Pulse 122 H 10/12/17 11:58 Resp 24 10/12/17 11:58 BP 110/77 10/12/17 11:58 Pulse Ox 98 10/12/17 11:58 Intake & Output 10/11/17 10/12/17 10/12/17 18:59 06:59 18:59 Intake Total 350 260 118 Output Total 500 Balance 350 -240 118 Weight 83 kg Intake: IV 60 Sodium Chloride 0.9% 1, 60 000 ml @ 20 mls/hr IV . Q24H [facility] Rx#:[id number] Oral 350 200 118 Output: Urine 500 Other: Voiding Method Diaper Diaper Diaper Incontinent Incontinent Incontinent # Voids 2 1 2 - Exam PHYSICAL EXAMINATION: HEENT: Head is atraumatic, normocephalic. Pupils equal, round. Neck is supple. There is no elevated jugular venous pressure. HEART EXAMINATION: Heart S1 and S2 irregularly irregular CHEST EXAMINATION: Lungs reveal scattered wheezing throughout ABDOMEN: Soft, nontender. Bowel sounds are heard. No organomegaly noted. EXTREMITIES: 2+ peripheral pulses with no evidence of peripheral edema and no calf tenderness noted. NEUROLOGIC patient is awake, alert and oriented -3. . - Labs CBC & Chem 7: 10/10/17 05:31 10/12/17 06:12 Labs: Abnormal Lab Results - Last 24 Hours (Table) 10/11/17 10/11/17 10/12/17 Range/Units 16:39 20:32 06:12 BUN 20 H (7-17) mg/dL Glucose 126 H (74-99) mg/dL POC Glucose (mg/dL) 136 H 150 H (75-99) mg/dL 10/12/17 10/12/17 Range/Units 06:15 11:40 BUN (7-17) mg/dL Glucose (74-99) mg/dL POC Glucose (mg/dL) 109 H 105 H (75-99) mg/dL Microbiology - Last 24 Hours (Table) 10/09/17 10:08 Blood Culture - Preliminary Blood No Growth after 72 hours Assessment and Plan Plan: Assessment and plan #1 paroxysmal atrial fibrillation, heart rate in the 120s today #2 exacerbation of COPD with sepsis Plan From cardiology's perspective, we will increase the dose of Cardizem to 60 mg one tablet by mouth 3 times a day for more optimal heart rate control, continue other medications. DNP note has been reviewed, I agree with a documented findings and plan of care. Patient was seen and examined.
--- NOTE | 2017-10-12 15:28 | P.PN ---
Progress Note - Text Progress Note Date: 10/12/17 DATE OF SERVICE: 10/12/2017 PRESENTING COMPLAINT: Short of breath, congested HISTORY OF PRESENT ILLNESS: 72-year-old female who presents with a cough for the past 3 days congested not able to bring up much a bridal weak and tired and rundown heart racing. Clonidine atrial fibrillation with rapid ventricular rate as well as a fever increased heart rate. On arrival patient was found to be in atrial fibrillation with rapid ventricular rate also had a fever and increased heart rate. Of note patient's baseline activity she requires mechanical lift be transferred. INTERVAL HISTORY: 10/12/2017: Lying in bed appears comfortable less wheezing. Staff tells that patient has been very confused seeing things hallucinating. Able to answer simple straightforward questions. Afebrile, remains in atrial fibrillation rate in the 110s to 120s. Xarelto for anticoagulation. Beta myra increased yesterday. Did not requires BiPAP support. Appetite is poor, primarily bedbound mobility is accomplished with the way her left. 10/11/2017: Lying in bed appears somewhat more comfortable less wheezing noted, complains of right shoulder pain. Afebrile, continues to be in atrial fibrillation, rate in the 110s to 120s. Cardizem drip discontinued, remains on Tambocor and beta myra. Ate bites of her breakfast, mobility is accomplished with a Olga Lidia lift. This is her baseline. Pulmonology to see the patient. Last BM 2017. 10/10/2017 Lying in bed tired appearing, audible wheezing, states she feels better than she did when she arrived yesterday. Remains in A. fib on the monitor Cardizem continues, Appetite continues to be low and she continues to be sleepy daughter at the bedside concerned about her sleepiness. Patient has to be moved at the lift in and out of the bed, this is her baseline. Last BM 10/10/2017. REVIEW OF SYSTEMS: Done for constitutional ,cardiovascular, GI, pulmonary with relevant findings as above. CURRENT MEDICATIONS Tylenol, [place], DuoNeb, Lipitor, Dulcolax, Pulmicort, Tums, ceftriaxone, famotidine, Tambocor, Lasix, Mucinex, sliding scale insulin, Synthroid, milk of magnesia, melatonin, Solu-Medrol, Lopressor, multivitamin, Kater, Xarelto, Requip, Senokot-S, Zoloft, Fleet Enema, Restoril. PHYSICAL EXAM VITAL SIGNS: Temperature 97.5, pulse 113, respiratory rate 24, blood pressure 116/62, oxygen saturation 94% on 2 L. GENERAL APPEARANCE:. Lying in bed, somewhat anxious appearing. HENT: Normocephalic, Oral cavity normal and external appearance of ears /nose normal EYES:Pupils equal. Conjunctiva normal. NECK:JVD not raised. Mass not palpable RESPIRATORY: Respiratory effort increased. Lungs diminished bilaterally poor air entry expiratory and inspiratory wheezing on auscultation. CARDIOVASCULAR: Irregular rhythm. Moderate edema. ABDOMEN: Soft. Liver and spleen not palpable. No tenderness. No mass palpable. PSYCHIATRY: Alert and oriented x3. Mood and affect she is appearing. MUSCULOSKELETAL: Good range of motion on the hips, osteoarthritis evidenced on hands and knees. INVESTIGATIONS: LABS: BUN 20 Accu-Cheks noted. ASSESSMENT: - Pneumonia suspect gram-negative organism, present on admission causing acute hypoxic respiratory failure,Causing sepsis present on admission slow to respond -Persistent atrial flutter fibrillation, remains uncontrolled, slow to respond -Acute metabolic encephalopathy,from infection, improving -Gastroesophageal reflux disease. -Essential hypertension. -Hyperlipidemia. -Chronic blood medical debility uses a mechanical lift for transfer. -Acute chronic obstructive pulmonary disease exacerbation and an ex-smoker, uncontrolled -Chronic T9 through T10 fracture likely osteoporosis -Chronic restless leg syndrome. -Chronic insomnia for multiple medical problems. -Right rotator cuff tear. -Right elbow skin tear. PLAN: Continue diuretics, antibiotics in the form of ceftriaxone, Mucinex, nebulized bronchodilators, Solu-Medrol for COPD exacerbation. Remains in atrial fibrillation beta myra increased yesterday. Cardiology will increase Cardizem to 60 mg 3 times a day. Discharge planning for the next 24-48 hours. Plan of care discussed with the daughter and patient they are in agreement we will follow closely. 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 Benitez
--- NOTE | 2017-10-12 15:55 | CDI ---
Last Revision, August 2017 Documentation Clarification Form Date: 10/12/2017 3:38:00 PM From: Delma Stephenson RN, CCDS Admit Date: 10/09/2017 12:01:00 PM Patient Name: Marya Parsons Visit Number: [id number] ATTENTION: The Clinical Documentation Specialists (CDI) and [facility] Coding Staff appreciate your assistance in clarifying documentation. Please respond to the clarification below the line at the bottom and electronically sign. The CDI & [facility] Coding staff will review the response and follow-up if needed. Please note: Queries are made part of the Legal Health Record. If you have any questions, please contact the author of this message via ITS. Dr. Celestine Benitez Sepsis d/t pneumonia is being documented by Pulmonary and Cardiology. Please indicate if you agree with this diagnosis. History/Risk Factors: Atrial fib, CHF, COPD, GERD, HTN, Hypothyroid Clinical Indicators: 10/09 H&P: Pneumonia, suspect gram-negative organism, present on admission causing acute hypoxic respiratory failure. " 10/10 Pulmonary Consult: "Sepsis associated with pneumonia likely left lower lobe and lingular lobe." WBC: 13.9/13.5 Left Shift: 12/11.8 Lactic acid: 1.4 Blood cultures: no growth x 72 hrs Vitals signs on admission: Temp 101.6, HR 164, RR 30, B/P 142/93, Spo2 912% 2l NC Treatment: Antibiotics: Rocephin 1gm IVP Q 24 hrs, Levaquin 500 mg IVPB X1, Iv Vanco 1250 mg IVPB X 1 dose, IV Bolus: 1 L IVF Bolus followed by 20 cc/ hr In your professional opinion, please clarify if these findings signify one of the following conditions, whether the condition is POA, and cause, if known: Sepsis ruled out Sepsis Severe Sepsis Septic Shock Other, please specify Present on Admission: Yes No Identify the (suspected) organism Link or clarify if there is associated (due to/with): Organ failure Shock SIRS Criteria...2 or more of the following may indicate SIRS: Temperature < 96.8F (36C) or > 101.0F (38.3C) Heart Rate > 90 bpm Respiratory Rate > 20 breaths/min or PaCO2 < 32 mmHg White Blood Cell Count > 12,000 or < 4,000 cells/mm3 or > 10% bands Lactate >2.0 mmol/L (>4.0 is equivalent to septic shock) Please continue to document in your progress notes and discharge summary in order to capture severity of illness and risk of mortality. Include clinical findings that support your diagnosis. pneumonia from [facility] negative organism causing sepsis present on admission - MTDD
--- NOTE | 2017-10-12 16:12 | CDI ---
Last Revision, August 2017 T Documentation Clarification Form Date: 10/12/2017 3:59:00 PM From: Delma Stephenson RN, CCDS Admit Date: 10/09/2017 12:01:00 PM Patient Name: Marya Parsons Visit Number: [id number] ATTENTION: The Clinical Documentation Specialists (CDI) and [facility] Coding Staff appreciate your assistance in clarifying documentation. Please respond to the clarification below the line at the bottom and electronically sign. The CDI & [facility] Coding staff will review the response and follow-up if needed. Please note: Queries are made part of the Legal Health Record. If you have any questions, please contact the author of this message via ITS. Dr. Celestine Benitez Altered mental status was documented in the Pulmonary progress notes and requires further specificity. Patient history/risk factors: patient is from SNF and is bedbound, Pneumonia, acute respiratory failure, Atrial Fib with RVR, acute COPD exacerbation, chronic insomnia Clinical Indicators: 10/11 Pulmonary Progress Note: "Altered mental status likely related to Xanax patient is being monitored and observed." 10/12 Pulmonary Progress Note: "altered mental status and confusion likely multifactorial. Confusion however remains an issue which is slightly worse than baseline." Labs: WBC 13.9/13.5, Neutrophils 12/11.8, total CK 139/177/223, CKMB 3.8/4.1/4.5 , troponin .288/.169/.097 X Ray: Difficult to exclude retrocardiac pneumonia Treatment: Xanax discontinued, Sepsis and pneumonia treated per orders 500 cc IVF Bolus followed by 100 cc/hr In your professional opinion, please clarify the etiology of the altered mental status, if known. Encephalopathy (specify Type and Underlying Medical Illness) Dementia (if know, specify Type and if with/without Behavioral Disturbance) Other condition (please specify) Unable to determine Please continue to document in your progress notes and discharge summary in order to capture severity of illness and risk of mortality. Include clinical findings that support your diagnosis. MÓNICAD
--- NOTE | 2017-10-12 16:20 | CDI ---
Last Revision, August 2017 Documentation Clarification Form Date: 10/12/2017 4:13:00 PM From: Delma Stephenson RN, CCDS Admit Date: 10/09/2017 12:01:00 PM Patient Name: Marya Parsons Visit Number: [id number] ATTENTION: The Clinical Documentation Specialists (CDI) and [facility] Coding Staff appreciate your assistance in clarifying documentation. Please respond to the clarification below the line at the bottom and electronically sign. The CDI & [facility] Coding staff will review the response and follow-up if needed. Please note: Queries are made part of the Legal Health Record. If you have any questions, please contact the author of this message via ITS. Dr. Celestine eBnitez Patient has been diagnosed with a previous fracture in the H&P and Progress notes and requires further specifity. Patient history/risk factors: Bedbound, COPD, chronic t-9-10 FX Clinical Indicators: 10/09 H&P: "Chronic T9-T10 fracture." X-Ray Results: "Thoracic compression deformities are not well seen on the frontal view." Treatment: No specific treatment this admission, just monitoring In your professional opinion, please specify the following: Etiology of fracture: Traumatic Pathological (specify cause): Osteoporosis Other (please specify): Specify if: Closed Open (If fracture of extremity), requires Gustilo-Joe classification Episode of care: Subsequent with delayed healing Subsequent with malunion Subsequent with nonunion Sequela Laterality and Location (if know specify part of bone): Left Right Bilateral Upper Lower Other (please specify): Also, indicate any associated diagnosis/conditions related to the Fracture in your documentation Please continue to document in your progress notes and discharge summary in order to capture severity of illness and risk of mortality. Include clinical findings that support your diagnosis. MTDD
[2017-10-12] MEDS: DILTIAZEM ORAL 60 MG TAB PO SCH ×2 (16:37→23:42)
[2017-10-12] MEDS: RIVAROXABAN 15 MG TAB PO SCH (16:38)
[2017-10-12 16:45] LABS: Glucose,Whole Blood 133 mg/dL (75-99)
--- NOTE | 2017-10-12 18:26 | PN ---
PROGRESS NOTE DATE OF SERVICE: October 12, 2017. ATTENDING NOTE: Patient seen and examined by me. Discussed with my nurse practitioner, Ms. Whelanmaria luisafernanda. The patient continues to feel better. Not much of an appetite. Breathing is actually much improved. PHYSICAL EXAMINATION: Temperature 97.6, heart rate is still 120s, respiration 22, blood pressure 110/77. Lungs improved air entry, decreased wheezing. Psych AO x3. INVESTIGATIONS: Potassium 4, BUN 20. ASSESSMENT: 1. Pneumonia suspect gram-negative organism, present on admission causing acute hypoxic respiratory failure causing sepsis present on admission. 2. Persistent atrial flutter fibrillation has remained uncontrolled. 3. Acute metabolic encephalopathy from infection, much improved. 4. Chronic T9-T10 fracture, likely osteoporotic. Overall patient is doing much better much better. Solu-Medrol is being cut back. Care was discussed the patient. Hopefully patient can be discharged in the next 24 hours. MMODL / IJN: [id number] /
[2017-10-12] MEDS: ATORVASTATIN 20 MG TAB PO SCH (20:05)
[2017-10-12] MEDS: MELATONIN 5 MG TABLET PO SCH (20:05)
[2017-10-12] MEDS: TEMAZEPAM 15 MG CAP PO SCH (20:11)
[2017-10-12 21:02] LABS: Glucose,Whole Blood 121 mg/dL (75-99)
[2017-10-13 06:18] LABS: Basophils % (A) 0 %; Eosinophils # (A) 0.1 k/uL (0-0.7); Eosinophils % (A) 1 %; HCT 40.6 % (34.0-46.0); HGB 12.6 gm/dL (11.4-16.0); Lymphocytes # (A) 1.2 k/uL (1.0-4.8); Lymphocytes % (A) 10 %; MCH 28.7 pg (25.0-35.0); MCHC 31.1 g/dL (31.0-37.0); MCV 92.5 fL (80.0-100.0); Mean Platelet Volume 8.2; Monocytes # (A) 0.8 k/uL (0-1.0); Monocytes % (A) 6 %; Neutrophils # (A) 10.2 k/uL (1.3-7.7); Neutrophils % (A) 82 %; Platelet Count 340 k/uL (150-450); RBC 4.39 m/uL (3.80-5.40); RDW 15.6 % (11.5-15.5); WBC 12.5 k/uL (3.8-10.6)
[2017-10-13 06:38] LABS: Glucose,Whole Blood 94 mg/dL (75-99)
[2017-10-13] MEDS: INSULIN ASPART 100 UNIT/ML 1 ML 10 ML VIAL SQ SCH ×4 (07:02→21:17)
[2017-10-13] MEDS: LEVOTHYROXINE 125 MCG TAB PO SCH (07:03)
--- NOTE | 2017-10-13 07:51 | XR ---
EXAMINATION TYPE: XR chest 1V portable DATE OF EXAM: 10/13/2017 COMPARISON: Prior chest x-ray 10/09/2017 HISTORY: Left lower lobe pneumonia TECHNIQUE: Single frontal view of the chest is obtained. FINDINGS: Patient is again rotated. Heart size may be accentuated by rotation. There are overlying c ardiac leads. No evident pneumothorax or pleural effusion. Patchy basilar density is present. Interst itium is mildly increased. IMPRESSION: Findings are similar to prior exam. Possible cardiomegaly, scoliosis, probable basilar a telectasis, correlate to exclude pneumonia. Follow-up PA and lateral chest x-ray recommended.
[2017-10-13] MEDS: METOPROLOL TARTRATE 25 MG TAB PO SCH ×3 (08:16→21:18)
[2017-10-13] MEDS: POTASSIUM CHLORIDE ER 20 MEQ TAB.ER PO SCH (08:16)
[2017-10-13] MEDS: FLECAINIDE 50 MG TAB PO SCH (08:17)
[2017-10-13] MEDS: FAMOTIDINE 20 MG TAB PO SCH (08:17)
[2017-10-13] MEDS: methylPREDNISolone SOD SUCCI 40 MG/ML 1 ML VIAL IV SCH (08:17)
[2017-10-13] MEDS: guaiFENesin 600 MG TABLET.ER PO SCH ×2 (08:18→21:17)
[2017-10-13] MEDS: FUROSEMIDE 40 MG TAB PO SCH ×2 (08:18→15:37)
[2017-10-13] MEDS: SERTRALINE 100 MG TAB PO SCH (08:19)
[2017-10-13] MEDS: MULTIVITAMINS, THERA 1 EACH TAB PO SCH (08:19)
[2017-10-13] MEDS: cefTRIAXone IN SWFI 1,000 MG/10 ML SYRINGE IVP SCH (08:26)
[2017-10-13] MEDS: DILTIAZEM ORAL 60 MG TAB PO SCH ×3 (08:27→21:18)
[2017-10-13] MEDS: IPRATROPIUM-ALBUTEROL 3 ML NEB INHALATION SCH ×4 (08:41→19:22)
[2017-10-13] MEDS: BUDESONIDE 0.5 MG/2 ML NEBU INHALATION SCH ×2 (08:41→19:22)
[2017-10-13] MEDS: SODIUM CHLORIDE 0.9% 1,000 ML IV SCH (11:28)
[2017-10-13 12:18] LABS: Glucose,Whole Blood 102 mg/dL (75-99)
--- NOTE | 2017-10-13 15:25 | P.PN ---
Subjective Progress Note Date: 10/13/17 History of present illness: This is a pleasant 72-year-old female patient who resides in [facility], follows with Dr. Hamilton in the office. She has a known history of paroxysmal atrial fibrillation, on flecainide and Xarelto, COPD, hyperlipidemia and hypertension. Presented via EMS from the [facility] with complaints of worsening shortness of breath over the last couple of days. Upon admission she was found to be in atrial fibrillation with rapid ventricular response. She was febrile with a temperature of 101.6 and oxygen saturation was low. His x-ray showed difficult to exclude retrocardiac pneumonia. BNP 2530. Troponins were elevated at 0.288, 0.169 and 0.097. She does deny having any complaints of chest discomfort including pain pressure, tightness or heaviness. She does complain of an occasional flutter in her chest. In the emergency room she was initiated on a Cardizem drip and blood pressure dropped significantly, currently on flecainide only. Initially she was on BiPAP but is currently on 4-6 L nasal cannula. Upon examination, staff just finished cleaning the patient up and changing her putting. Patient is significantly short of breath with audible wheezing. 10/12/2007 Patient seen and examined this morning, breathing seems to be somewhat improved today overall. Denies any chest discomfort, no dizziness or lightheadedness. Heart rate this morning continues to be in the 120 range. Patient has considerable wheezing throughout today. 10/13/2007 Patient seen and examined this morning, denies any difficulty in breathing, denies any chest pain or palpitations. Continues to have a heart rate in the 130s to 140s. We will discontinue the flecainide and start the patient on oral amiodarone and attempt to get more optimal heart rate control. Objective - Vital Signs Vital signs: Vital Signs Temp 96.8 F L 10/13/17 12:00 Pulse 112 H 10/13/17 12:30 Resp 18 10/13/17 12:00 BP 105/75 10/13/17 12:00 Pulse Ox 96 10/13/17 12:00 Intake & Output 10/12/17 10/13/17 10/13/17 18:59 06:59 18:59 Intake Total 118 120 Output Total 1 1 Balance 118 -1 119 Weight 83.5 kg 83.5 kg Intake: Oral 118 120 Output: Urine 1 1 Other: Voiding Method Diaper Diaper Diaper Incontinent Incontinent Incontinent # Voids 2 1 1 - Exam PHYSICAL EXAMINATION: HEENT: Head is atraumatic, normocephalic. Pupils equal, round. Neck is supple. There is no elevated jugular venous pressure. HEART EXAMINATION: Heart S1 and S2 irregularly irregular CHEST EXAMINATION: Lungs reveal scattered wheezing throughout ABDOMEN: Soft, nontender. Bowel sounds are heard. No organomegaly noted. EXTREMITIES: 2+ peripheral pulses with no evidence of peripheral edema and no calf tenderness noted. NEUROLOGIC patient is awake, alert and oriented -3. . - Labs CBC & Chem 7: 10/13/17 05:44 10/12/17 06:12 Labs: Abnormal Lab Results - Last 24 Hours (Table) 10/12/17 10/12/17 10/13/17 Range/Units 16:43 20:59 05:44 WBC 12.5 H (3.8-10.6) k/uL RDW 15.6 H (11.5-15.5) % Neutrophils # 10.2 H (1.3-7.7) k/uL POC Glucose (mg/dL) 133 H 121 H (75-99) mg/dL 10/13/17 Range/Units 12:00 WBC (3.8-10.6) k/uL RDW (11.5-15.5) % Neutrophils # (1.3-7.7) k/uL POC Glucose (mg/dL) 102 H (75-99) mg/dL Microbiology - Last 24 Hours (Table) 10/09/17 10:08 Blood Culture - Preliminary Blood No Growth after 96 hours Assessment and Plan Plan: Assessment and plan #1 paroxysmal atrial fibrillation, heart rate in the 120s today #2 exacerbation of COPD with sepsis Plan From cardiology's perspective, discontinue the flecainide and start the patient on oral amiodarone for more optimal heart rate control. DNP note has been reviewed, I agree with a documented findings and plan of care. Patient was seen and examined.
[2017-10-13] MEDS: AMIODARONE 200 MG TAB PO SCH ×2 (15:36→21:16)
[2017-10-13] MEDS: RIVAROXABAN 15 MG TAB PO SCH (15:37)
--- NOTE | 2017-10-13 16:42 | P.PN ---
Progress Note - Text Progress Note Date: 10/13/17 DATE OF SERVICE: 10/13/2017 PRESENTING COMPLAINT: Short of breath, congested HISTORY OF PRESENT ILLNESS: 72-year-old female who presents with a cough for the past 3 days congested not able to bring up much a bridal weak and tired and rundown heart racing. Clonidine atrial fibrillation with rapid ventricular rate as well as a fever increased heart rate. On arrival patient was found to be in atrial fibrillation with rapid ventricular rate also had a fever and increased heart rate. Of note patient's baseline activity she requires mechanical lift be transferred. INTERVAL HISTORY: 10/13/2017: Lying in bed appears somewhat restless breathing easily. Has transient hallucinations and confusion, at the present time patient is alert and able to answer questions eating breakfast. Afebrile Remains in atrial fibrillation with a rate in the 130s to 140s has not had need of BiPAP. Appetite slow to improve eating between 20 and 30% of her meals. Last BM 10/10/2017 10/12/2017: Lying in bed appears comfortable less wheezing. Staff tells that patient has been very confused seeing things hallucinating. Able to answer simple straightforward questions. Afebrile, remains in atrial fibrillation rate in the 110s to 120s. Xarelto for anticoagulation. Beta myra increased yesterday. Did not requires BiPAP support. Appetite is poor, primarily bedbound mobility is accomplished with the Olga Lidia left. 10/11/2017: Lying in bed appears somewhat more comfortable less wheezing noted, complains of right shoulder pain. Afebrile, continues to be in atrial fibrillation, rate in the 110s to 120s. Cardizem drip discontinued, remains on Tambocor and beta myra. Ate bites of her breakfast, mobility is accomplished with a Olga Lidia lift. This is her baseline. Pulmonology to see the patient. Last BM 2017. 10/10/2017 Lying in bed tired appearing, audible wheezing, states she feels better than she did when she arrived yesterday. Remains in A. fib on the monitor Cardizem continues, Appetite continues to be low and she continues to be sleepy daughter at the bedside concerned about her sleepiness. Patient has to be moved at the lift in and out of the bed, this is her baseline. Last BM 10/10/2017. REVIEW OF SYSTEMS: Done for constitutional ,cardiovascular, GI, pulmonary with relevant findings as above. CURRENT MEDICATIONS Tylenol, Stanton, DuoNeb, Cordarone, Lipitor, Dulcolax, Pulmicort, Tums, Rocephin , Cardizem oral, Pepcid, Lasix, Mucinex, NovoLog, Synthroid, buccal magnesia, melatonin, Solu-Medrol, Lopressor, potassium chloride, Xarelto, Requip, Senokot- S, Zoloft, fleets enema, Restoril. PHYSICAL EXAM VITAL SIGNS: Temperature 96.8, pulse 113, respiratory rate 18, blood pressure 105/75, oxygen saturation 96% on 2 L. GENERAL APPEARANCE:. Lying in bed, somewhat anxious appearing. HENT: Normocephalic, l. JVD not raised. Mass not palpable.: EYES: Pupils equal. Conjunctiva marely RESPIRATORY: Respiratory effort increased. Lungs diminished bilaterally poor air entry expiratory and inspiratory wheezing on auscultation. CARDIOVASCULAR: Irregular rhythm. Moderate edema. ABDOMEN: Soft. Liver and spleen not palpable. No tenderness. No mass palpable. PSYCHIATRY: Alert and oriented x3 at this exam however has had some confusion overnight and throughout the day Mood and affect anxious appearing. MUSCULOSKELETAL: Good range of motion on the hips, osteoarthritis evidenced on hands and knees. INVESTIGATIONS: LABS: White blood cell count 12.5,Accu-Cheks noted. ASSESSMENT: - Pneumonia suspect gram-negative organism, present on admission causing acute hypoxic respiratory failure,Causing sepsis present on admission slow to respond -Persistent atrial flutter fibrillation, remains uncontrolled, slow to respond -Acute metabolic encephalopathy,from infection, slow to respond -Gastroesophageal reflux disease. -Essential hypertension. -Hyperlipidemia. -Chronic blood medical debility uses a mechanical lift for transfer. -Acute chronic obstructive pulmonary disease exacerbation and an ex-smoker, uncontrolled -Chronic T9 through T10 fracture likely osteoporosis -Chronic restless leg syndrome. -Chronic insomnia for multiple medical problems. -Right rotator cuff tear. -Right elbow skin tear. PLAN: Continue by mouth diuretics, antibiotics in the form of ceftriaxone, Mucinex, nebulized bronchodilators, Solu-Medrol for COPD exacerbation. Remains in atrial fibrillation flecainide discontinued amiodarone added. Discharge planning for the next 24-48 hours. Plan of care discussed at the bedside. we will follow closely. [employer]CISION IN[employer]UMENT [employer] AND REPA[employer]ER statement: Patient was seen and examined by nurse practitioner Tracy Brothers and all elements of the case discussed with attending Dr. Benitez
[2017-10-13 17:00] LABS: Glucose,Whole Blood 224 mg/dL (75-99)
--- NOTE | 2017-10-13 18:12 | P.PN ---
Subjective Progress Note Date: 10/13/17 Principal diagnosis: Left lower lobe and left lingula lobe pneumonia, sepsis, acute hypoxic respiratory failure, acute exacerbation of CHF with acute diastolic heart failure, atrial fibrillation with rapid ventricular response, altered mental status and confusion likely multifactorial 10/13/2017, patient seen eval reexamined her confusion appears to be better now she is breathing K more comfortably but does a very fine expiratory wheezing and cough she remains confused chest x-ray performed earlier today reviewed and compared with prior x-ray 10/12/2017, patient seen and evaluated examined during the rounds from respiratory standpoint her wheezing cuff congestion slightly improved breathing more comfortably she is on just 2 L oxygen she does not require BiPAP at nighttime, confusion however remains an issue which is slightly worse than baseline her daughter is present at the bedside as well, she has expressed that patient is bedbound most of the time at [facility] 10/11/2017, patient seen and evaluated examined during the rounds this morning, overall spiking fever Petrin in respiratory status slightly better she is on 4- 6 L oxygen getting breathing treatments however has been noted to somewhat somnolent but arousable she did receive Xanax last night which is discontinuedatthispointoftime we'll closely monitor observe clinical course Ms. Deedee Parsons is a 72-year-old female who is a resident of [facility] care facility patient has a history of severe COPD as well as issues associated with arrhythmia and chronic atrial fibrillation patient has not been doing very well for the last 2-3 days with progressive increased shortness of breath cough and a spiking fever due to those problem patient was transferred to emergency department she was found to be in A. fib with rapid ventricular response and acute exacerbation of CHF in addition patient was spiking fever as well with temperature of 101.6 she was found to be in heart failure with elevated BNP over 2500 and mildly elevated troponin patient also found to have a acute hypoxic respirator failure requiring BiPAP and-and oxygen 4-6 L she responded well with the BiPAP eventually has been taken off patient was started on IV steroids and breathing treatments and given extra furosemide with that symptoms improve him a there are some issues associated fluctuating blood pressure was seen as well due to Cardizem drip however eventually was taken off Objective - Vital Signs Vital signs: Vital Signs Temp 96.8 F L 10/13/17 16:00 Pulse 135 H 10/13/17 16:00 Resp 18 10/13/17 16:00 BP 106/72 10/13/17 16:00 Pulse Ox 96 10/13/17 16:00 Intake & Output 10/12/17 10/13/17 10/13/17 18:59 06:59 18:59 Intake Total 118 120 Output Total 1 1 Balance 118 -1 119 Weight 83.5 kg 83.5 kg Intake: Oral 118 120 Output: Urine 1 1 Other: Voiding Method Diaper Diaper Diaper Incontinent Incontinent Incontinent # Voids 2 1 1 - Exam - Constitutional General appearance: average body habitus, cooperative, disheveled, severe distress - EENT Eyes: PERRLA, normal appearance ENT: hard of hearing Ears: bilateral: normal - Neck Neck: normal ROM Carotids: bilateral: upstroke normal, bruit absent - Respiratory Respiratory: bilateral: diminished, rales (Predominantly at the bases), rhonchi (Inspiratory expiratory), wheezing (Inspiratory and expiratory), prolonged expiration, negative: CTA, dullness, prolonged inspiration - Cardiovascular Rhythm: irregularly irregular Heart sounds: normal: S1, S2 - Gastrointestinal General gastrointestinal: normal bowel sounds, soft - Neurologic Neurologic: CNII-XII intact - Musculoskeletal Musculoskeletal: generalized weakness, strength equal bilaterally - Psychiatric Psychiatric: A&O x's 2, appropriate affect, intact judgment & insight, some level of confusion is still there - Labs CBC & Chem 7: 10/13/17 05:44 10/12/17 06:12 Labs: Abnormal Lab Results - Last 24 Hours (Table) 10/12/17 10/13/17 10/13/17 Range/Units 20:59 05:44 12:00 WBC 12.5 H (3.8-10.6) k/uL RDW 15.6 H (11.5-15.5) % Neutrophils # 10.2 H (1.3-7.7) k/uL POC Glucose (mg/dL) 121 H 102 H (75-99) mg/dL 10/13/17 Range/Units 16:45 WBC (3.8-10.6) k/uL RDW (11.5-15.5) % Neutrophils # (1.3-7.7) k/uL POC Glucose (mg/dL) 224 H (75-99) mg/dL Microbiology - Last 24 Hours (Table) 10/09/17 10:08 Blood Culture - Preliminary Blood No Growth after 96 hours - Imaging and Cardiology Chest x-ray: report reviewed, image reviewed (Chest x-ray performed 10/13/2017 reviewed and compared with the prior x-ray patchy bilateral basal infiltrate or density is present may appear slightly more prominent) Assessment and Plan Assessment: Altered mental status likely related to Xanax patient is being monitored and observed, also contribution from a baseline dementia and Alzheimer's disease, some affect from IV steroids cannot be excluded,Will lower down to once daily and tapered Sepsis associated with pneumonia likely left lower lobe and lingular lobe Atrial fibrillation with rapid ventricular response Congestive heart failure likely acute diastolic heart failure related to above with elevated d-dimer Non-ST segment elevated VT cannot be excluded Generalized weakness and medical debility due to multifactorial problems and issues Borderline hypokalemia Plan: Patient to be maintained on diuretics, antibiotics, breathing treatments, IV steroids follow clinical course closely and continue supportive care for further recommendations pending plan of care as per clinical response of the patient would maintain patient on and maintain patient on home medications and peptic ulcer disease prophylaxis. We'll obtain a follow-up chest x-ray monitor clinical course closely care plan discussed with the daughter,RN and respiratory therapy at length Time with Patient: Greater than 30
[2017-10-13 21:12] LABS: Glucose,Whole Blood 130 mg/dL (75-99)
[2017-10-13] MEDS: ATORVASTATIN 20 MG TAB PO SCH (21:17)
[2017-10-13] MEDS: MELATONIN 5 MG TABLET PO SCH (21:18)
[2017-10-13] MEDS: TEMAZEPAM 15 MG CAP PO SCH (21:21)
--- NOTE | 2017-10-13 22:26 | PN ---
PROGRESS NOTE ATTENDING NOTE: 10/13/17. ATTENDING NOTE: Patient seen and examined by me. I discussed with nurse practitioner, [place]. The patient's breathing is better. Not much of an appetite. Heart rate is still uncontrolled. PHYSICAL EXAMINATION: Temperature 96.8, pulse 130, respirations 18, blood pressure 106/72, pulse ox 96% on 2 L. HEART: Sounds irregular. LUNGS: Diminished breath sounds. Some wheezing. Psych AO x3. INVESTIGATIONS: Hemoglobin 12.6, Accu-Cheks are noted. PLAN: Patient is started on Cordarone by Cardiology. Flecainide was discontinued. Will follow. MMODL / IJN: [id number] /
[2017-10-14 06:26] LABS: Glucose,Whole Blood 131 mg/dL (75-99)
[2017-10-14] MEDS: LEVOTHYROXINE 125 MCG TAB PO SCH (06:35)
[2017-10-14] MEDS: INSULIN ASPART 100 UNIT/ML 1 ML 10 ML VIAL SQ SCH ×4 (06:35→21:08)
[2017-10-14] MEDS: IPRATROPIUM-ALBUTEROL 3 ML NEB INHALATION SCH ×4 (07:34→18:57)
[2017-10-14] MEDS: BUDESONIDE 0.5 MG/2 ML NEBU INHALATION SCH ×2 (07:34→18:57)
[2017-10-14] MEDS: FUROSEMIDE 40 MG TAB PO SCH ×2 (08:01→16:43)
[2017-10-14] MEDS: AMIODARONE 200 MG TAB PO SCH ×2 (08:01→20:06)
[2017-10-14] MEDS: DILTIAZEM ORAL 60 MG TAB PO SCH ×3 (08:01→21:22)
[2017-10-14] MEDS: FAMOTIDINE 20 MG TAB PO SCH (08:02)
[2017-10-14] MEDS: guaiFENesin 600 MG TABLET.ER PO SCH ×2 (08:03→20:07)
[2017-10-14] MEDS: POTASSIUM CHLORIDE ER 20 MEQ TAB.ER PO SCH (08:04)
[2017-10-14] MEDS: METOPROLOL TARTRATE 25 MG TAB PO SCH (08:04)
[2017-10-14] MEDS: methylPREDNISolone SOD SUCCI 40 MG/ML 1 ML VIAL IV SCH (08:04)
[2017-10-14] MEDS: SERTRALINE 100 MG TAB PO SCH (08:05)
[2017-10-14] MEDS: cefTRIAXone IN SWFI 1,000 MG/10 ML SYRINGE IVP SCH (08:10)
[2017-10-14 12:04] LABS: Glucose,Whole Blood 122 mg/dL (75-99)
[2017-10-14] MEDS: MULTIVITAMINS, THERA 1 EACH TAB PO SCH (13:01)
--- NOTE | 2017-10-14 13:36 | P.PN ---
Subjective Progress Note Date: 10/14/17 Principal diagnosis: Left lower lobe and left lingula lobe pneumonia, sepsis, acute hypoxic respiratory failure, acute exacerbation of CHF with acute diastolic heart failure, atrial fibrillation with rapid ventricular response, altered mental status and confusion likely multifactorial 10/14/2017, patient seen and evaluated examined during the rounds she is sitting upright on the chair breathing comfortably cuff congestion shortness breath is improved her FiO2 is gradually being titrated down she is still S some level of baseline confusion but severity has improved compared to prior exam but severity of confusion has been continued to improve as her respiratory status is getting better, her x-ray and laboratory data data and medications reviewed 10/13/2017, patient seen eval reexamined her confusion appears to be better now she is breathing K more comfortably but does a very fine expiratory wheezing and cough she remains confused chest x-ray performed earlier today reviewed and compared with prior x-ray 10/12/2017, patient seen and evaluated examined during the rounds from respiratory standpoint her wheezing cuff congestion slightly improved breathing more comfortably she is on just 2 L oxygen she does not require BiPAP at nighttime, confusion however remains an issue which is slightly worse than baseline her daughter is present at the bedside as well, she has expressed that patient is bedbound most of the time at [facility] 10/11/2017, patient seen and evaluated examined during the rounds this morning, overall spiking fever Petrin in respiratory status slightly better she is on 4- 6 L oxygen getting breathing treatments however has been noted to somewhat somnolent but arousable she did receive Xanax last night which is discontinuedatthispointoftime we'll closely monitor observe clinical course Ms. Deedee Parsnos is a 72-year-old female who is a resident of [facility] patient has a history of severe COPD as well as issues associated with arrhythmia and chronic atrial fibrillation patient has not been doing very well for the last 2-3 days with progressive increased shortness of breath cough and a spiking fever due to those problem patient was transferred to emergency department she was found to be in A. fib with rapid ventricular response and acute exacerbation of CHF in addition patient was spiking fever as well with temperature of 101.6 she was found to be in heart failure with elevated BNP over 2500 and mildly elevated troponin patient also found to have a acute hypoxic respirator failure requiring BiPAP and-and oxygen 4-6 L she responded well with the BiPAP eventually has been taken off patient was started on IV steroids and breathing treatments and given extra furosemide with that symptoms improve him a there are some issues associated fluctuating blood pressure was seen as well due to Cardizem drip however eventually was taken off Objective - Vital Signs Vital signs: Vital Signs Temp 96.8 F L 10/14/17 12:00 Pulse 135 H 10/14/17 12:00 Resp 20 10/14/17 12:00 BP 97/68 10/14/17 12:00 Pulse Ox 96 10/14/17 12:00 Intake & Output 10/13/17 10/14/17 10/14/17 18:59 06:59 18:59 Intake Total 120 60 90 Output Total 1 1 2 Balance 119 59 88 Weight 83.5 kg 83.5 kg Intake: Oral 120 60 90 Output: Urine 1 1 2 Other: Voiding Method Diaper Diaper Incontinent Incontinent # Voids 1 0 1 # Bowel Movements 1 - Exam - Constitutional General appearance: average body habitus, cooperative, disheveled, severe distress - EENT Eyes: PERRLA, normal appearance ENT: hard of hearing Ears: bilateral: normal - Neck Neck: normal ROM Carotids: bilateral: upstroke normal, bruit absent - Respiratory Respiratory: bilateral: diminished, rales (Predominantly at the bases), rhonchi (Inspiratory expiratory), wheezing (Inspiratory and expiratory), prolonged expiration, negative: CTA, dullness, prolonged inspiration - Cardiovascular Rhythm: irregularly irregular Heart sounds: normal: S1, S2 - Gastrointestinal General gastrointestinal: normal bowel sounds, soft - Neurologic Neurologic: CNII-XII intact - Musculoskeletal Musculoskeletal: generalized weakness, strength equal bilaterally - Psychiatric Psychiatric: A&O x's 2, appropriate affect, intact judgment & insight, some level of confusion is still there - Labs CBC & Chem 7: 10/13/17 05:44 10/12/17 06:12 Labs: Abnormal Lab Results - Last 24 Hours (Table) 10/13/17 10/13/17 10/14/17 Range/Units 16:45 21:06 06:21 POC Glucose (mg/dL) 224 H 130 H 131 H (75-99) mg/dL 10/14/17 Range/Units 11:57 POC Glucose (mg/dL) 122 H (75-99) mg/dL Microbiology - Last 24 Hours (Table) 10/09/17 10:08 Blood Culture - Preliminary Blood No Growth after 120 hours Assessment and Plan Assessment: Altered mental status likely related to Xanax patient is being monitored and observed, also contribution from a baseline dementia and Alzheimer's disease, some affect from IV steroids cannot be excluded,Will lower down to once daily and tapered Sepsis associated with pneumonia likely left lower lobe and lingular lobe Atrial fibrillation with rapid ventricular response Congestive heart failure likely acute diastolic heart failure related to above with elevated d-dimer Non-ST segment elevated ME cannot be excluded Generalized weakness and medical debility due to multifactorial problems and issues Borderline hypokalemia Plan: Hopefully next 24 hours for DC the IV antibiotics as well as IV steroids and switched to by mouth Agree with discharge planning Patient to be maintained on diuretics, antibiotics, breathing treatments, IV steroids follow clinical course closely and continue supportive care for further recommendations pending plan of care as per clinical response of the patient would maintain patient on and maintain patient on home medications and peptic ulcer disease prophylaxis. Reviewed follow-up chest x-ray monitor clinical course closely care plan discussed with the primary service and the staff Time with Patient: Greater than 30
--- NOTE | 2017-10-14 14:43 | P.PN ---
Subjective Progress Note Date: 10/14/17 History of present illness: This is a pleasant 72-year-old female patient who resides in [facility], follows with Dr. Hamilton in the office. She has a known history of paroxysmal atrial fibrillation, on flecainide and Xarelto, COPD, hyperlipidemia and hypertension. Presented via EMS from the [facility] with complaints of worsening shortness of breath over the last couple of days. Upon admission she was found to be in atrial fibrillation with rapid ventricular response. She was febrile with a temperature of 101.6 and oxygen saturation was low. His x-ray showed difficult to exclude retrocardiac pneumonia. BNP 2530. Troponins were elevated at 0.288, 0.169 and 0.097. She does deny having any complaints of chest discomfort including pain pressure, tightness or heaviness. She does complain of an occasional flutter in her chest. In the emergency room she was initiated on a Cardizem drip and blood pressure dropped significantly, currently on flecainide only. Initially she was on BiPAP but is currently on 4-6 L nasal cannula. Upon examination, staff just finished cleaning the patient up and changing her putting. Patient is significantly short of breath with audible wheezing. 10/12/2017 Patient seen and examined this morning, breathing seems to be somewhat improved today overall. Denies any chest discomfort, no dizziness or lightheadedness. Heart rate this morning continues to be in the 120 range. Patient has considerable wheezing throughout today. 10/13/2017 Patient seen and examined this morning, denies any difficulty in breathing, denies any chest pain or palpitations. Continues to have a heart rate in the 130s to 140s. We will discontinue the flecainide and start the patient on oral amiodarone and attempt to get more optimal heart rate control. 10/14/2017 Patient seen and examined this morning, up with physical therapy sitting at the bedside. Looking overall much better today. She continues to be in atrial fibrillation with a rapid ventricular response, heart rate staying around the 140s. We will increase her dose of beta myra to 50 mg one tablet by mouth 3 times a day today. Objective - Vital Signs Vital signs: Vital Signs Temp 96.8 F L 10/14/17 12:00 Pulse 135 H 10/14/17 12:00 Resp 20 01/17/18 12:00 BP 97/68 10/14/17 12:00 Pulse Ox 96 10/14/17 12:00 Intake & Output 10/13/17 10/14/17 10/14/17 18:59 06:59 18:59 Intake Total 120 60 90 Output Total 1 1 2 Balance 119 59 88 Weight 83.5 kg 83.5 kg Intake: Oral 120 60 90 Output: Urine 1 1 2 Other: Voiding Method Diaper Diaper Incontinent Incontinent # Voids 1 0 1 # Bowel Movements 1 - Exam PHYSICAL EXAMINATION: HEENT: Head is atraumatic, normocephalic. Pupils equal, round. Neck is supple. There is no elevated jugular venous pressure. HEART EXAMINATION: Heart S1 and S2 irregularly irregular CHEST EXAMINATION: Lungs reveal scattered wheezing throughout ABDOMEN: Soft, nontender. Bowel sounds are heard. No organomegaly noted. EXTREMITIES: 2+ peripheral pulses with no evidence of peripheral edema and no calf tenderness noted. NEUROLOGIC patient is awake, alert and oriented -3. . - Labs CBC & Chem 7: 10/13/17 05:44 10/12/17 06:12 Labs: Abnormal Lab Results - Last 24 Hours (Table) 10/13/17 10/13/17 10/14/17 Range/Units 16:45 21:06 06:21 POC Glucose (mg/dL) 224 H 130 H 131 H (75-99) mg/dL 10/14/17 Range/Units 11:57 POC Glucose (mg/dL) 122 H (75-99) mg/dL Microbiology - Last 24 Hours (Table) 10/09/17 10:08 Blood Culture - Preliminary Blood No Growth after 120 hours Assessment and Plan Plan: Assessment and plan #1 paroxysmal atrial fibrillation, heart rate in the 120s today #2 exacerbation of COPD with sepsis Plan From cardiology's perspective, increase dose of beta myra to 50 mg one tablet by mouth 3 times a day today. Continue other medications. Once the heart rate is stable plan for discharge. DNP note has been reviewed, I agree with a documented findings and plan of care. Patient was seen and examined.
--- NOTE | 2017-10-14 15:08 | P.PN ---
Progress Note - Text Progress Note Date: 10/14/17 DATE OF SERVICE: 10/14/2017 PRESENTING COMPLAINT: Short of breath, congested HISTORY OF PRESENT ILLNESS: 72-year-old female who presents with a cough for the past 3 days congested not able to bring up much a bridal weak and tired and rundown heart racing. Clonidine atrial fibrillation with rapid ventricular rate as well as a fever increased heart rate. On arrival patient was found to be in atrial fibrillation with rapid ventricular rate also had a fever and increased heart rate. Of note patient's baseline activity she requires mechanical lift be transferred. INTERVAL HISTORY: 10/14/2017: Sitting up in bed appears calm and comfortable no acute overnight events. Is aware that she is felt and been somewhat confused and hallucinating. At the present time is alert able to answer questions. Afebrile remains in atrial fibrillation with a rate in the 130s to 150s. Cardiology continues to adjust medications. Breathing is better remains on nasal cannula, has not needed the BiPAP. Appetite is slowly improving eating between 20-30% of her meals. Last BM 10/14/2017. 10/13/2017: Lying in bed appears somewhat restless breathing easily. Has transient hallucinations and confusion, at the present time patient is alert and able to answer questions eating breakfast. Afebrile Remains in atrial fibrillation with a rate in the 130s to 140s has not had need of BiPAP. Appetite slow to improve eating between 20 and 30% of her meals. Last BM 10/10/2017 10/12/2017: Lying in bed appears comfortable less wheezing. Staff tells that patient has been very confused seeing things hallucinating. Able to answer simple straightforward questions. Afebrile, remains in atrial fibrillation rate in the 110s to 120s. Xarelto for anticoagulation. Beta myra increased yesterday. Did not requires BiPAP support. Appetite is poor, primarily bedbound mobility is accomplished with the Olga Lidia left. 10/11/2017: Lying in bed appears somewhat more comfortable less wheezing noted, complains of right shoulder pain. Afebrile, continues to be in atrial fibrillation, rate in the 110s to 120s. Cardizem drip discontinued, remains on Tambocor and beta myra. Ate bites of her breakfast, mobility is accomplished with a Olga Lidia lift. This is her baseline. Pulmonology to see the patient. Last BM 2017. 10/10/2017 Lying in bed tired appearing, audible wheezing, states she feels better than she did when she arrived yesterday. Remains in A. fib on the monitor Cardizem continues, Appetite continues to be low and she continues to be sleepy daughter at the bedside concerned about her sleepiness. Patient has to be moved at the lift in and out of the bed, this is her baseline. Last BM 10/10/2017. REVIEW OF SYSTEMS: Done for constitutional ,cardiovascular, GI, pulmonary with relevant findings as above. CURRENT MEDICATIONS Tylenol, [place], DuoNeb, Cordarone, Lipitor, Dulcolax, Pulmicort, Tums, Rocephin , Cardizem oral, Pepcid, Lasix, Mucinex, NovoLog, Synthroid, milk of Magnesia, melatonin, Solu-Medrol, Lopressor, potassium chloride, Xarelto, Requip, Senokot- S, Zoloft, fleets enema, Restoril. PHYSICAL EXAM VITAL SIGNS: Temperature 96.2, pulse 137, respiratory rate 18, blood pressure 101/74, oxygen saturation 98% on 2 L. GENERAL APPEARANCE:. Lying in bed, mildly anxious appearing. HENT: Normocephalic, JVD not raised. Mass not palpable.: EYES: Pupils equal. Conjunctiva normal RESPIRATORY: Respiratory effort mildly increased. Lungs diminished bilaterally fair air entry expiratory and inspiratory wheezing on auscultation. CARDIOVASCULAR: Irregular rhythm. Moderate edema. ABDOMEN: Soft. Liver and spleen not palpable. No tenderness. No mass palpable. PSYCHIATRY: Alert and oriented x3 and does have some episodes of confusion. Mood and affect anxious appearing. MUSCULOSKELETAL: osteoarthritis evidenced on hands and knees. INVESTIGATIONS: LABS none new ASSESSMENT: - Pneumonia suspect gram-negative organism, present on admission causing acute hypoxic respiratory failure,Causing sepsis present on admission improving -Persistent atrial flutter fibrillation, remains uncontrolled, slow to respond -Acute metabolic encephalopathy,from infection, improving -Gastroesophageal reflux disease. -Essential hypertension. -Hyperlipidemia. -Chronic blood medical debility uses a mechanical lift for transfer. -Acute chronic obstructive pulmonary disease exacerbation and an ex-smoker, uncontrolled -Chronic T9 through T10 fracture likely osteoporosis -Chronic restless leg syndrome. -Chronic insomnia for multiple medical problems. -Right rotator cuff tear. -Right elbow skin tear. PLAN: Continue by mouth diuretics, antibiotics in the form of ceftriaxone, Mucinex, nebulized bronchodilators, Solu-Medrol for COPD exacerbation. Remains in atrial fibrillation increasing the beta myra 50 mg 3 times a day. Discharge planning for the next 24-48 hours. Plan of care discussed at the bedside. we will follow closely. MARINE ARCHITECT statement: Patient was seen and examined by nurse practitioner Tracy Brothers and all elements of the case discussed with attending Dr. Benitez
[2017-10-14] MEDS: RIVAROXABAN 15 MG TAB PO SCH (16:43)
[2017-10-14] MEDS: METOPROLOL TARTRATE 50 MG TAB PO SCH ×2 (16:45→21:22)
[2017-10-14 17:12] LABS: Glucose,Whole Blood 137 mg/dL (75-99)
[2017-10-14] MEDS: MELATONIN 5 MG TABLET PO SCH (20:06)
[2017-10-14] MEDS: TEMAZEPAM 15 MG CAP PO SCH (20:06)
[2017-10-14] MEDS: ATORVASTATIN 20 MG TAB PO SCH (20:06)
[2017-10-14] MEDS: SODIUM CHLORIDE 0.9% 1,000 ML IV SCH (21:08)
[2017-10-14 21:12] LABS: Glucose,Whole Blood 126 mg/dL (75-99)
--- NOTE | 2017-10-15 04:57 | PN ---
PROGRESS NOTE DATE OF SERVICE: 10/14/2017 ATTENDING NOTE: The patient was seen and examined by me. I discussed with nurse practitioner, Ms. Brothers. The patient's breathing is better. Heart rate is still not controlled. ON EXAMINATION: LUNGS: Decreased breath sounds. Mild wheezing. HEART: Sounds irregular. PSYCH: A&O x3. White count 12.5, hemoglobin 12.6. Accu-Cheks are noted. ASSESSMENT: 1. Multiple medical problems. 2. Persistent atrial flutter fibrillation. 3. Persistent atrial fibrillation. Heart rate uncontrolled. Cardiology increased Lopressor 50 mg 3 times a day. Patient is already on Cardizem, Xarelto for anticoagulation. Other medication and treatment plan is to continue. MMODL / IJN: [id number] /
[2017-10-15 06:16] LABS: Glucose,Whole Blood 88 mg/dL (75-99)
[2017-10-15] MEDS: INSULIN ASPART 100 UNIT/ML 1 ML 10 ML VIAL SQ SCH ×4 (06:22→21:59)
[2017-10-15] MEDS: LEVOTHYROXINE 125 MCG TAB PO SCH (06:55)
[2017-10-15] MEDS: BUDESONIDE 0.5 MG/2 ML NEBU INHALATION SCH ×2 (07:40→19:33)
[2017-10-15] MEDS: IPRATROPIUM-ALBUTEROL 3 ML NEB INHALATION SCH ×4 (07:40→19:33)
[2017-10-15] MEDS: AMIODARONE 200 MG TAB PO SCH ×2 (07:51→20:03)
[2017-10-15] MEDS: DILTIAZEM ORAL 60 MG TAB PO SCH ×3 (07:51→21:59)
[2017-10-15] MEDS: FAMOTIDINE 20 MG TAB PO SCH (07:52)
[2017-10-15] MEDS: FUROSEMIDE 40 MG TAB PO SCH ×2 (07:52→17:08)
[2017-10-15] MEDS: guaiFENesin 600 MG TABLET.ER PO SCH ×2 (07:52→20:04)
[2017-10-15] MEDS: methylPREDNISolone SOD SUCCI 40 MG/ML 1 ML VIAL IV SCH (07:53)
[2017-10-15] MEDS: METOPROLOL TARTRATE 50 MG TAB PO SCH ×3 (07:53→21:59)
[2017-10-15] MEDS: POTASSIUM CHLORIDE ER 20 MEQ TAB.ER PO SCH (07:54)
[2017-10-15] MEDS: SERTRALINE 100 MG TAB PO SCH (07:54)
[2017-10-15] MEDS: cefTRIAXone IN SWFI 1,000 MG/10 ML SYRINGE IVP SCH (07:57)
--- NOTE | 2017-10-15 10:52 | P.PN ---
Subjective Progress Note Date: 10/15/17 History of present illness: This is a pleasant 72-year-old female patient who resides in [facility], follows with Dr. Hamilton in the office. She has a known history of paroxysmal atrial fibrillation, on flecainide and Xarelto, COPD, hyperlipidemia and hypertension. Presented via EMS from the [facility] with complaints of worsening shortness of breath over the last couple of days. Upon admission she was found to be in atrial fibrillation with rapid ventricular response. She was febrile with a temperature of 101.6 and oxygen saturation was low. His x-ray showed difficult to exclude retrocardiac pneumonia. BNP 2530. Troponins were elevated at 0.288, 0.169 and 0.097. She does deny having any complaints of chest discomfort including pain pressure, tightness or heaviness. She does complain of an occasional flutter in her chest. In the emergency room she was initiated on a Cardizem drip and blood pressure dropped significantly, currently on flecainide only. Initially she was on BiPAP but is currently on 4-6 L nasal cannula. Upon examination, staff just finished cleaning the patient up and changing her putting. Patient is significantly short of breath with audible wheezing. 10/12/2017 Patient seen and examined this morning, breathing seems to be somewhat improved today overall. Denies any chest discomfort, no dizziness or lightheadedness. Heart rate this morning continues to be in the 120 range. Patient has considerable wheezing throughout today. 10/13/2017 Patient seen and examined this morning, denies any difficulty in breathing, denies any chest pain or palpitations. Continues to have a heart rate in the 130s to 140s. We will discontinue the flecainide and start the patient on oral amiodarone and attempt to get more optimal heart rate control. 10/14/2017 Patient seen and examined this morning, up with physical therapy sitting at the bedside. Looking overall much better today. She continues to be in atrial fibrillation with a rapid ventricular response, heart rate staying around the 140s. We will increase her dose of beta myra to 50 mg one tablet by mouth 3 times a day today. 10/15/2017 Patient seen and examined this morning, no complaints overall, however the heart rate assisted be in the 130s to [address] Hamilton did have a discussion with the patient this morning, she is on a maximum medical therapy for her A. fib however because the heart rate remains elevated she was advised to undergo a transesophageal echocardiographic study with subsequent cardioversion tomorrow the risks and benefits were explained to the patient in detail and she is willing to proceed. Objective - Vital Signs Vital signs: Vital Signs Temp 97.2 F L 10/15/17 08:00 Pulse 137 H 10/15/17 08:00 Resp 18 10/15/17 08:00 BP 117/80 10/15/17 08:00 Pulse Ox 96 10/15/17 08:00 Intake & Output 10/14/17 10/15/17 10/15/17 18:59 06:59 18:59 Intake Total 210 0 Output Total 2 1 Balance 208 -1 Weight 82.5 kg Intake: Oral 210 0 Output: Urine 2 Urine/Stool Mix 1 Other: # Voids 1 1 # Bowel Movements 1 - Exam PHYSICAL EXAMINATION: HEENT: Head is atraumatic, normocephalic. Pupils equal, round. Neck is supple. There is no elevated jugular venous pressure. HEART EXAMINATION: Heart S1 and S2 irregularly irregular CHEST EXAMINATION: Lungs reveal scattered wheezing throughout ABDOMEN: Soft, nontender. Bowel sounds are heard. No organomegaly noted. EXTREMITIES: 2+ peripheral pulses with no evidence of peripheral edema and no calf tenderness noted. NEUROLOGIC patient is awake, alert and oriented -3. . - Labs CBC & Chem 7: 10/13/17 05:44 10/12/17 06:12 Labs: Abnormal Lab Results - Last 24 Hours (Table) 10/14/17 10/14/17 10/14/17 Range/Units 11:57 17:07 21:06 POC Glucose (mg/dL) 122 H 137 H 126 H (75-99) mg/dL Microbiology - Last 24 Hours (Table) 10/09/17 10:08 Blood Culture - Preliminary Blood No Growth after 120 hours Assessment and Plan Plan: Assessment and plan #1 paroxysmal atrial fibrillation, heart rate in the 120s today #2 exacerbation of COPD with sepsis Plan From cardiology's perspective, Patient has been recommended to undergo transesophageal echocardiographic study with subsequent cardioversion. Risks and the benefits were explained to the patient in detail and this will be performed tomorrow by Dr. Hamilton. DNP note has been reviewed, I agree with a documented findings and plan of care. Patient was seen and examined.
[2017-10-15 12:12] LABS: Glucose,Whole Blood 115 mg/dL (75-99)
--- NOTE | 2017-10-15 16:17 | P.PN ---
Subjective Progress Note Date: 10/15/17 Principal diagnosis: Left lower lobe and left lingula lobe pneumonia, sepsis, acute hypoxic respiratory failure, acute exacerbation of CHF with acute diastolic heart failure, atrial fibrillation with rapid ventricular response, altered mental status and confusion likely multifactorial 10/15/2017, he shouldn't seen eval examined during the rounds from respiratory standpoint wheezing cuff congestion slightly better and improved she is complaining of palpitation and tachycardia on cardiovascular services following they're recommending DOLLY and cardioversion 10/14/2017, patient seen and evaluated examined during the rounds she is sitting upright on the chair breathing comfortably cuff congestion shortness breath is improved her FiO2 is gradually being titrated down she is still S some level of baseline confusion but severity has improved compared to prior exam but severity of confusion has been continued to improve as her respiratory status is getting better, her x-ray and laboratory data data and medications reviewed 10/13/2017, patient seen eval reexamined her confusion appears to be better now she is breathing K more comfortably but does a very fine expiratory wheezing and cough she remains confused chest x-ray performed earlier today reviewed and compared with prior x-ray 10/12/2017, patient seen and evaluated examined during the rounds from respiratory standpoint her wheezing cuff congestion slightly improved breathing more comfortably she is on just 2 L oxygen she does not require BiPAP at nighttime, confusion however remains an issue which is slightly worse than baseline her daughter is present at the bedside as well, she has expressed that patient is bedbound most of the [facility] 10/11/2017, patient seen and evaluated examined during the rounds this morning, overall spiking fever Petrin in respiratory status slightly better she is on 4- 6 L oxygen getting breathing treatments however has been noted to somewhat somnolent but arousable she did receive Xanax last night which is discontinuedatthispointoftime we'll closely monitor observe clinical course Ms. Deedee Parsons is a 72-year-old female who is a resident of [facility] care facility patient has a history of severe COPD as well as issues associated with arrhythmia and chronic atrial fibrillation patient has not been doing very well for the last 2-3 days with progressive increased shortness of breath cough and a spiking fever due to those problem patient was transferred to emergency department she was found to be in A. fib with rapid ventricular response and acute exacerbation of CHF in addition patient was spiking fever as well with temperature of 101.6 she was found to be in heart failure with elevated BNP over 2500 and mildly elevated troponin patient also found to have a acute hypoxic respirator failure requiring BiPAP and-and oxygen 4-6 L she responded well with the BiPAP eventually has been taken off patient was started on IV steroids and breathing treatments and given extra furosemide with that symptoms improve him a there are some issues associated fluctuating blood pressure was seen as well due to Cardizem drip however eventually was taken off Objective - Vital Signs Vital signs: Vital Signs Temp 97.2 F L 10/15/17 08:00 Pulse 137 H 10/15/17 08:00 Resp 18 10/15/17 08:00 BP 117/80 10/15/17 08:00 Pulse Ox 96 10/15/17 08:00 Intake & Output 10/14/17 10/15/17 10/15/17 18:59 06:59 18:59 Intake Total 210 120 Output Total 2 1 Balance 208 119 Weight 82.5 kg Intake: Oral 210 120 Output: Urine 2 Urine/Stool Mix 1 Other: # Voids 1 1 # Bowel Movements 1 - Exam - Constitutional General appearance: average body habitus, cooperative, disheveled, severe distress - EENT Eyes: PERRLA, normal appearance ENT: hard of hearing Ears: bilateral: normal - Neck Neck: normal ROM Carotids: bilateral: upstroke normal, bruit absent - Respiratory Respiratory: bilateral: diminished, rales (Predominantly at the bases), rhonchi (Inspiratory expiratory), wheezing (Inspiratory and expiratory), prolonged expiration, negative: CTA, dullness, prolonged inspiration - Cardiovascular Rhythm: irregularly irregular Heart sounds: normal: S1, S2 - Gastrointestinal General gastrointestinal: normal bowel sounds, soft - Neurologic Neurologic: CNII-XII intact - Musculoskeletal Musculoskeletal: generalized weakness, strength equal bilaterally - Psychiatric Psychiatric: A&O x's 2, appropriate affect, intact judgment & insight, some level of confusion is still there - Labs CBC & Chem 7: 10/13/17 05:44 10/12/17 06:12 Labs: Abnormal Lab Results - Last 24 Hours (Table) 10/14/17 10/14/17 10/15/17 Range/Units 17:07 21:06 11:52 POC Glucose (mg/dL) 137 H 126 H 115 H (75-99) mg/dL Microbiology - Last 24 Hours (Table) 10/09/17 10:08 Blood Culture - Final Blood No Growth after 144 hours Assessment and Plan Assessment: Transfer fibrillation with rapid ventricular response patient is being considered for DOLLY and cardioversion the associated developing acute diastolic heart failure cannot be excluded Altered mental status likely related to Xanax patient is being monitored and observed, improved significantly also contribution from a baseline dementia and Alzheimer's disease, some affect from IV steroids cannot be excluded,Will lower down to once daily and tapered Sepsis associated with pneumonia likely left lower lobe and lingular lobe Congestive heart failure likely acute diastolic heart failure related to above with elevated d-dimer Non-ST segment elevated [place] cannot be excluded Generalized weakness and medical debility due to multifactorial problems and issues Borderline hypokalemia Plan: Hopefully next 24 hours for DC the IV antibiotics as well as IV steroids and switched to by mouth Agree with discharge planning Patient to be maintained on diuretics, antibiotics, breathing treatments, IV steroids follow clinical course closely and continue supportive care for further recommendations pending plan of care as per clinical response of the patient would maintain patient on and maintain patient on home medications and peptic ulcer disease prophylaxis. Reviewed follow-up chest x-ray monitor clinical course closely care plan discussed with the primary service and the staff Time with Patient: Greater than 30
[2017-10-15 17:00] LABS: Glucose,Whole Blood 160 mg/dL (75-99)
[2017-10-15] MEDS: MULTIVITAMINS, THERA 1 EACH TAB PO SCH (17:07)
[2017-10-15] MEDS: RIVAROXABAN 15 MG TAB PO SCH (17:09)
--- NOTE | 2017-10-15 17:27 | P.PN ---
Progress Note - Text Progress Note Date: 10/15/17 DATE OF SERVICE: 10/15/2017 PRESENTING COMPLAINT: Short of breath, congested HISTORY OF PRESENT ILLNESS: 72-year-old female who presents with a cough for the past 3 days congested not able to bring up much a bridal weak and tired and rundown heart racing. Clonidine atrial fibrillation with rapid ventricular rate as well as a fever increased heart rate. On arrival patient was found to be in atrial fibrillation with rapid ventricular rate also had a fever and increased heart rate. Of note patient's baseline activity she requires mechanical lift be transferred. INTERVAL HISTORY: 10/15/2017: Sitting up in bed, comfortable and cooperative no acute overnight events. Able to answer questions and conversation is appropriate. Afebrile, remains in atrial fibrillation with a rate between 130-150. Cardiology is continuing to adjust medications. Breathing is better remains on nasal cannula no need for the BiPAP. Appetite is slowly improving continues to be between 20 and 30% of her meals. Last BM 10/14/2017. 10/14/2017: Sitting up in bed appears calm and comfortable no acute overnight events. Is aware that she is felt and been somewhat confused and hallucinating. At the present time is alert able to answer questions. Afebrile remains in atrial fibrillation with a rate in the 130s to 150s. Cardiology continues to adjust medications. Breathing is better remains on nasal cannula, has not needed the BiPAP. Appetite is slowly improving eating between 20-30% of her meals. Last BM 10/14/2017. 10/13/2017: Lying in bed appears somewhat restless breathing easily. Has transient hallucinations and confusion, at the present time patient is alert and able to answer questions eating breakfast. Afebrile Remains in atrial fibrillation with a rate in the 130s to 140s has not had need of BiPAP. Appetite slow to improve eating between 20 and 30% of her meals. Last BM 10/10/2017 10/12/2017: Lying in bed appears comfortable less wheezing. Staff tells that patient has been very confused seeing things hallucinating. Able to answer simple straightforward questions. Afebrile, remains in atrial fibrillation rate in the 110s to 120s. Xarelto for anticoagulation. Beta myra increased yesterday. Did not requires BiPAP support. Appetite is poor, primarily bedbound mobility is accomplished with the Olga Lidia left. 10/11/2017: Lying in bed appears somewhat more comfortable less wheezing noted, complains of right shoulder pain. Afebrile, continues to be in atrial fibrillation, rate in the 110s to 120s. Cardizem drip discontinued, remains on Tambocor and beta myra. Ate bites of her breakfast, mobility is accomplished with a Olga Lidia lift. This is her baseline. Pulmonology to see the patient. Last BM 2017. 10/10/2017 Lying in bed tired appearing, audible wheezing, states she feels better than she did when she arrived yesterday. Remains in A. fib on the monitor Cardizem continues, Appetite continues to be low and she continues to be sleepy daughter at the bedside concerned about her sleepiness. Patient has to be moved at the lift in and out of the bed, this is her baseline. Last BM 10/10/2017. REVIEW OF SYSTEMS: Done for constitutional ,cardiovascular, GI, pulmonary with relevant findings as above. CURRENT MEDICATIONS Tylenol, [place], DuoNeb, Cordarone, Lipitor, Dulcolax, Pulmicort, Tums, Rocephin , Cardizem oral, Pepcid, Lasix, Mucinex, NovoLog, Synthroid, milk of Magnesia, melatonin, Solu-Medrol, Lopressor, potassium chloride, Xarelto, Requip, Senokot- S, Zoloft, fleets enema, Restoril. PHYSICAL EXAM VITAL SIGNS: Temperature 97.2, heart rate 1:30, respiratory rate 18, blood pressure 117/80, oxygen saturation 96% on 2 L nasal cannula GENERAL APPEARANCE:. Lying in bed, mildly anxious appearing. HENT: Normocephalic, JVD not raised. Mass not palpable.: EYES: Pupils equal. Conjunctiva normal RESPIRATORY: Respiratory effort mildly increased. Lungs diminished bilaterally fair air entry expiratory and inspiratory wheezing on auscultation. CARDIOVASCULAR: Irregular rhythm. Moderate edema. ABDOMEN: Soft. Liver and spleen not palpable. No tenderness. No mass palpable. PSYCHIATRY: Alert and oriented x3 and does have some episodes of confusion. Mood and affect anxious appearing. MUSCULOSKELETAL: osteoarthritis evidenced on hands and knees. INVESTIGATIONS: LABS Accu-Cheks noted ASSESSMENT: - Pneumonia suspect gram-negative organism, present on admission causing acute hypoxic respiratory failure,Causing sepsis present on admission improving -Persistent atrial flutter fibrillation, remains uncontrolled, slow to respond -Acute metabolic encephalopathy,from infection, improving -Gastroesophageal reflux disease. -Essential hypertension. -Hyperlipidemia. -Chronic blood medical debility uses a mechanical lift for transfer. -Acute chronic obstructive pulmonary disease exacerbation and an ex-smoker, uncontrolled -Chronic T9 through T10 fracture likely osteoporosis -Chronic restless leg syndrome. -Chronic insomnia for multiple medical problems. -Right rotator cuff tear. -Right elbow skin tear. PLAN: Continue by mouth diuretics, antibiotics in the form of ceftriaxone, Mucinex, nebulized bronchodilators, Solu-Medrol for COPD exacerbation. Remains in atrial fibrillation cardiology plans a DOLLY with possible cardioversion tomorrow. Plan of care discussed at the bedside. we will follow closely. DIRECTOR DENTAL SERVICES statement: Patient was seen and examined by nurse practitioner Tracy Brothers and all elements of the case discussed with attending Dr. Benitez
[2017-10-15] MEDS: SODIUM CHLORIDE 0.9% 1,000 ML IV SCH ×2 (20:02)
[2017-10-15] MEDS: ATORVASTATIN 20 MG TAB PO SCH (20:03)
[2017-10-15] MEDS: MELATONIN 5 MG TABLET PO SCH (20:04)
[2017-10-15 21:13] LABS: Glucose,Whole Blood 107 mg/dL (75-99)
[2017-10-15] MEDS ORDERED: LACTATED RINGERS 1,000 ML IV SCH (21:30)
[2017-10-15] MEDS: TEMAZEPAM 15 MG CAP PO SCH (21:59)
--- NOTE | 2017-10-15 22:13 | PN ---
PROGRESS NOTE DATE OF SERVICE: 10/15/2017 ATTENDING NOTE: The patient seen and examined by me. I discussed with my nurse practitioner, Ms. Brothers. Patient admitted with pneumonia and acute COPD exacerbation and these two are greatly improved. The patient has new onset of atrial flutter/fibrillation still uncontrolled. EXAMINATION: Afebrile, pulse 138, respirations 16, blood pressure 102/70, pulse ox 94% on 2L. LUNGS: Decreased breath sounds. HEART: Irregular. PSYCH: AO x3. Awake. ASSESSMENT: 1. New onset atrial fibrillation/flutter, rate uncontrolled. 2. Pneumonia with acute hypoxic respiratory failure, clinically improved. 3. Acute chronic obstructive pulmonary disease exacerbation, better. PLAN: A. fib. is still uncontrolled. Cardiology is planning to do cardioversion tomorrow. Care was discussed with the patient. Daughter at the bedside. ELIO / DASH: [id number] /
[2017-10-16 05:43] LABS: Glucose,Whole Blood 93 mg/dL (75-99)
[2017-10-16] MEDS: INSULIN ASPART 100 UNIT/ML 1 ML 10 ML VIAL SQ SCH ×4 (05:44→21:01)
[2017-10-16] MEDS ORDERED: PROPOFOL 10 MG/ML 20 ML VIAL IV ONE (07:00)
[2017-10-16] MEDS ORDERED: ePHEDrine 50 MG/ML 1 ML AMP ONE (07:00)
[2017-10-16] MEDS ORDERED: BENZOCAINE SPRAY 1 CAN MUCOUS MEM ONE ×2 (07:10→07:12)
[2017-10-16] MEDS ORDERED: SODIUM CHLORIDE 0.9% 1,000 ML IV SCH (07:45)
--- NOTE | 2017-10-16 08:06 | PN ---
PROGRESS NOTE Ms. Parsons is a 72-year-old female who presented with symptoms of respiratory infection with hypoxemia. She has history of chronic obstructive lung disease. She continues to be tachycardic with episode of atrial tachycardia and atrial fibrillation with difficulty controlling her ventricular response. She denies any chest pain. She denies any dizziness or palpitation. She denies any nausea. She continued to be on amiodarone 400 mg twice a day, Lipitor 20 mg daily. Add diltiazem 60 mg 2 times a day, Lasix 40 mg twice a day. Insulin and metoprolol tartrate 50 mg 3 times a day and Xarelto 15 mg daily. PHYSICAL EXAMINATION: Blood pressure are 114/80 with a heart rate in the 130s. LUNGS: With few crackles. No wheezes. HEART: Irregular regular S1, S2. No S3. No rub. ABDOMEN: Soft, nontender. EXTREMITIES: No edema. IMPRESSION: 1. Persistent atrial fibrillation and atrial flutter was difficulty controlling the ventricular response. 2. Findings consistent with exacerbation of chronic obstructive pulmonary disease with tracheobronchitis. RECOMMENDATION: I will proceed with DOLLY guided cardioversion to restore normal sinus rhythm because of the difficulty controlling her ventricular response. Depending on her progress, further recommendation will be made. MMODL / IJN: [id number] /
--- NOTE | 2017-10-16 08:06 | ECHOT ---
TRANSESOPHAGEAL ECHOCARDIOGRAM INDICATION: Evaluation of left atrial appendage. PROCEDURE: After explaining the procedure to the patient as well as the risks and complications. Blood pressure, heart rate, O2 saturation were monitored. Her throat was sprayed with Cetacaine. She received sedation per anesthesia department. Following that, the probe was introduced into the esophagus without difficulty. Images were obtained. Following that, the probe was removed. FINDINGS: The left atrial size is dilated. Spontaneous contrast was noted. Left atrial appendage is normal. Left ventricle size is normal. There is evidence of global hypokinesis with an ejection fraction estimated at 40%. The aortic valve revealed fibrocalcific changes of the aortic cusp with preserved opening. Severe mitral annulus calcification was noted. The tricuspid valve is normal. The descending thoracic aorta revealed no evidence of significant atherosclerotic changes. Contrast bubble study revealed no shunting across the interatrial septum. No pericardial effusion was noted. Doppler, pulse wave and color, obtained and revealed a mild to moderate mitral with mild tricuspid regurgitation. No pericardial effusion was noted. CONCLUSION: 1. Dilated left atrium with spontaneous contrast. 2. Normal left ventricular size with mild to moderate global hypokinesis. 3. [id number] mitral with mild tricuspid regurgitation. MMODL / IJN: [id number] /
--- NOTE | 2017-10-16 08:12 | CE ---
CARDIAC ELECTROPHYSIOLOGY REPORT CARDIOVERSION PROCEDURE: INDICATION: Atrial tachycardia and atrial fibrillation. PROCEDURE: After explaining the procedure to the patient, it's risks and complication, after performing transesophageal echocardiogram and obtaining sedated stated, a synchronized biphasic 200 joule cardioversion was performed with sikh normal sinus rhythm. There was no immediate complication. ELIO / DASH: [id number] /
[2017-10-16] MEDS: BUDESONIDE 0.5 MG/2 ML NEBU INHALATION SCH ×2 (08:13→19:09)
[2017-10-16] MEDS: IPRATROPIUM-ALBUTEROL 3 ML NEB INHALATION SCH ×4 (08:13→19:09)
[2017-10-16] MEDS ORDERED: LACTATED RINGERS 1,000 ML IV ONE (08:28)
[2017-10-16] MEDS: SERTRALINE 100 MG TAB PO SCH (08:55)
[2017-10-16] MEDS: AMIODARONE 200 MG TAB PO SCH ×2 (08:55→21:03)
[2017-10-16] MEDS: guaiFENesin 600 MG TABLET.ER PO SCH ×2 (08:55→21:02)
[2017-10-16] MEDS: METOPROLOL TARTRATE 50 MG TAB PO SCH ×2 (08:55→21:04)
[2017-10-16] MEDS: LEVOTHYROXINE 125 MCG TAB PO SCH (08:55)
[2017-10-16] MEDS: POTASSIUM CHLORIDE ER 20 MEQ TAB.ER PO SCH (08:55)
[2017-10-16] MEDS: FAMOTIDINE 20 MG TAB PO SCH (08:56)
[2017-10-16] MEDS: cefTRIAXone IN SWFI 1,000 MG/10 ML SYRINGE IVP SCH (08:56)
[2017-10-16] MEDS: methylPREDNISolone SOD SUCCI 40 MG/ML 1 ML VIAL IV SCH (08:56)
[2017-10-16] MEDS: FUROSEMIDE 40 MG TAB PO SCH ×2 (08:56→15:38)
[2017-10-16 10:00] VITALS: RESP 16
[2017-10-16 12:02] VITALS: BMI 33.5
[2017-10-16 12:42] LABS: Glucose,Whole Blood 92 mg/dL (75-99)
--- NOTE | 2017-10-16 12:49 | P.PN ---
Subjective Progress Note Date: 10/16/17 Principal diagnosis: Left lower lobe and left lingula lobe pneumonia, sepsis, acute hypoxic respiratory failure, acute exacerbation of CHF with acute diastolic heart failure, atrial fibrillation with rapid ventricular response, altered mental status and confusion likely multifactorial 10/16/2017, patient seen and evaluated examined patient underwent the DOLLY and elective cardioversion earlier today patient is now back to sinus rhythm breathing more comfortably denies any chest pain cough, shortness of breath sputum production has improved significantly 10/15/2017, he shouldn't seen eval examined during the rounds from respiratory standpoint wheezing cuff congestion slightly better and improved she is complaining of palpitation and tachycardia on cardiovascular services following they're recommending DOLLY and cardioversion 10/14/2017, patient seen and evaluated examined during the rounds she is sitting upright on the chair breathing comfortably cuff congestion shortness breath is improved her FiO2 is gradually being titrated down she is still S some level of baseline confusion but severity has improved compared to prior exam but severity of confusion has been continued to improve as her respiratory status is getting better, her x-ray and laboratory data data and medications reviewed 10/13/2017, patient seen eval reexamined her confusion appears to be better now she is breathing K more comfortably but does a very fine expiratory wheezing and cough she remains confused chest x-ray performed earlier today reviewed and compared with prior x-ray 10/12/2017, patient seen and evaluated examined during the rounds from respiratory standpoint her wheezing cuff congestion slightly improved breathing more comfortably she is on just 2 L oxygen she does not require BiPAP at nighttime, confusion however remains an issue which is slightly worse than baseline her daughter is present at the bedside as well, she has expressed that patient is bedbound most of the time at [facility] 10/11/2017, patient seen and evaluated examined during the rounds this morning, overall spiking fever Petrin in respiratory status slightly better she is on 4- 6 L oxygen getting breathing treatments however has been noted to somewhat somnolent but arousable she did receive Xanax last night which is discontinuedatthispointoftime we'll closely monitor observe clinical course Ms. Deedee Parsons is a 72-year-old female who is a resident of [facility] patient has a history of severe COPD as well as issues associated with arrhythmia and chronic atrial fibrillation patient has not been doing very well for the last 2-3 days with progressive increased shortness of breath cough and a spiking fever due to those problem patient was transferred to emergency department she was found to be in A. fib with rapid ventricular response and acute exacerbation of CHF in addition patient was spiking fever as well with temperature of 101.6 she was found to be in heart failure with elevated BNP over 2500 and mildly elevated troponin patient also found to have a acute hypoxic respirator failure requiring BiPAP and-and oxygen 4-6 L she responded well with the BiPAP eventually has been taken off patient was started on IV steroids and breathing treatments and given extra furosemide with that symptoms improve him a there are some issues associated fluctuating blood pressure was seen as well due to Cardizem drip however eventually was taken off Objective - Vital Signs Vital signs: Vital Signs Temp 96.8 F L 10/16/17 08:30 Pulse 53 L 10/16/17 08:45 Resp 16 10/16/17 08:45 BP 108/63 10/16/17 08:45 Pulse Ox 96 10/16/17 08:45 Intake & Output 10/15/17 10/16/17 10/16/17 18:59 06:59 18:59 Intake Total 500 160 600 Output Total 1 Balance 499 160 600 Weight 83 kg 83 kg Intake: IV 160 600 Sodium Chloride 0.9% 1, 160 000 ml @ 20 mls/hr IV . Q24H [facility] Rx#:[id number] Oral 500 Output: Urine/Stool Mix 1 Other: # Voids 1 1 - Exam - Constitutional General appearance: average body habitus, cooperative, disheveled, severe distress - EENT Eyes: PERRLA, normal appearance ENT: hard of hearing Ears: bilateral: normal - Neck Neck: normal ROM Carotids: bilateral: upstroke normal, bruit absent - Respiratory Respiratory: bilateral: diminished, rales (Predominantly at the bases), rhonchi (Inspiratory expiratory), wheezing (Inspiratory and expiratory), prolonged expiration, negative: CTA, dullness, prolonged inspiration - Cardiovascular Rhythm: irregularly irregular Heart sounds: normal: S1, S2 - Gastrointestinal General gastrointestinal: normal bowel sounds, soft - Neurologic Neurologic: CNII-XII intact - Musculoskeletal Musculoskeletal: generalized weakness, strength equal bilaterally - Psychiatric Psychiatric: A&O x's 2, appropriate affect, intact judgment & insight, some level of confusion is still there - Labs CBC & Chem 7: 10/13/17 05:44 10/12/17 06:12 Labs: Abnormal Lab Results - Last 24 Hours (Table) 10/15/17 10/15/17 Range/Units 16:55 21:12 POC Glucose (mg/dL) 160 H 107 H (75-99) mg/dL Microbiology - Last 24 Hours (Table) 10/09/17 10:08 Blood Culture - Final Blood No Growth after 144 hours Assessment and Plan Assessment: Atrial fibrillation with rapid ventricular response patient is s/p DOLLY and cardioversion the associated developing acute diastolic heart failure cannot be excluded Altered mental status likely related to Xanax patient is being monitored and observed, improved significantly also contribution from a baseline dementia and Alzheimer's disease, some affect from IV steroids cannot be excluded,Will lower down to once daily and tapered Sepsis associated with pneumonia likely left lower lobe and lingular lobe Congestive heart failure likely acute diastolic heart failure related to above with elevated d-dimer Non-ST segment elevated MN cannot be excluded Generalized weakness and medical debility due to multifactorial problems and issues Borderline hypokalemia Plan: Hopefully next 24 hours for DC the IV antibiotics as well as IV steroids and switched to by mouth Agree with discharge planning Patient to be maintained on diuretics, antibiotics, breathing treatments, IV steroids follow clinical course closely and continue supportive care for further recommendations pending plan of care as per clinical response of the patient would maintain patient on and maintain patient on home medications and peptic ulcer disease prophylaxis. Reviewed follow-up chest x-ray monitor clinical course closely care plan discussed with the primary service and the staff
[2017-10-16] MEDS: SODIUM CHLORIDE 0.9% 1,000 ML IV SCH ×2 (12:52→13:02)
[2017-10-16] MEDS: MULTIVITAMINS, THERA 1 EACH TAB PO SCH (12:55)
--- NOTE | 2017-10-16 17:00 | P.PN ---
Progress Note - Text Progress Note Date: 10/16/17 DATE OF SERVICE: 10/16/2017 PRESENTING COMPLAINT: Short of breath, congested HISTORY OF PRESENT ILLNESS: 72-year-old female who presents with a cough for the past 3 days congested not able to bring up much a bridal weak and tired and rundown heart racing. Clonidine atrial fibrillation with rapid ventricular rate as well as a fever increased heart rate. On arrival patient was found to be in atrial fibrillation with rapid ventricular rate also had a fever and increased heart rate. Of note patient's baseline activity she requires mechanical lift be transferred. INTERVAL HISTORY: 10/16/2017: Sitting up in bed, comfortable cooperative no acute overnight and spleen. Able to answer questions and conversation is appropriate, no obvious signs of delirium or confusion. Was returned from her DOLLY and cardioversion, currently in sinus rhythm with a rate in the 40s to 50s. Breathing is better remains on nasal cannula has not needed the BiPAP for several days now. Appetite is slowly to improve continues only to eat 2030% of her meals. Last BM 10/14/2017: 10/15/2017: Sitting up in bed, comfortable and cooperative no acute overnight events. Able to answer questions and conversation is appropriate. Afebrile, remains in atrial fibrillation with a rate between 130-150. Cardiology is continuing to adjust medications. Breathing is better remains on nasal cannula no need for the BiPAP. Appetite is slowly improving continues to be between 20 and 30% of her meals. Last BM 10/14/2017. 10/14/2017: Sitting up in bed appears calm and comfortable no acute overnight events. Is aware that she is felt and been somewhat confused and hallucinating. At the present time is alert able to answer questions. Afebrile remains in atrial fibrillation with a rate in the 130s to 150s. Cardiology continues to adjust medications. Breathing is better remains on nasal cannula, has not needed the BiPAP. Appetite is slowly improving eating between 20-30% of her meals. Last BM 10/14/2017. 10/13/2017: Lying in bed appears somewhat restless breathing easily. Has transient hallucinations and confusion, at the present time patient is alert and able to answer questions eating breakfast. Afebrile Remains in atrial fibrillation with a rate in the 130s to 140s has not had need of BiPAP. Appetite slow to improve eating between 20 and 30% of her meals. Last BM 10/10/2017 10/12/2017: Lying in bed appears comfortable less wheezing. Staff tells that patient has been very confused seeing things hallucinating. Able to answer simple straightforward questions. Afebrile, remains in atrial fibrillation rate in the 110s to 120s. Xarelto for anticoagulation. Beta myra increased yesterday. Did not requires BiPAP support. Appetite is poor, primarily bedbound mobility is accomplished with the Olga Lidia left. 10/11/2017: Lying in bed appears somewhat more comfortable less wheezing noted, complains of right shoulder pain. Afebrile, continues to be in atrial fibrillation, rate in the 110s to 120s. Cardizem drip discontinued, remains on Tambocor and beta myra. Ate bites of her breakfast, mobility is accomplished with a Olga Lidia lift. This is her baseline. Pulmonology to see the patient. Last BM 2017. 10/10/2017 Lying in bed tired appearing, audible wheezing, states she feels better than she did when she arrived yesterday. Remains in A. fib on the monitor Cardizem continues, Appetite continues to be low and she continues to be sleepy daughter at the bedside concerned about her sleepiness. Patient has to be moved at the lift in and out of the bed, this is her baseline. Last BM 10/10/2017. REVIEW OF SYSTEMS: Done for constitutional ,cardiovascular, GI, pulmonary with relevant findings as above. CURRENT MEDICATIONS Tylenol, [place], DuoNeb, Cordarone, Lipitor, Dulcolax, Pulmicort, Tums, Rocephin , Cardizem oral, Pepcid, Lasix, Mucinex, NovoLog, Synthroid, milk of Magnesia, melatonin, Solu-Medrol, Lopressor, potassium chloride, Xarelto, Requip, Senokot- S, Zoloft, fleets enema, Restoril. PHYSICAL EXAM VITAL SIGNS: Temperature 96.8, pulse 57, respiratory rate 16, blood pressure 102/62, oxygen saturation 97% on 2 L. GENERAL APPEARANCE:. Sitting up in bed, mildly anxious appearing. HENT: Normocephalic, JVD not raised. Mass not palpable.: EYES: Pupils equal. Conjunctiva normal RESPIRATORY: Respiratory effort mildly increased. Lungs diminished bilaterally fair air entry expiratory and inspiratory wheezing on auscultation. CARDIOVASCULAR: First and second sound noted. Mild edema. ABDOMEN: Soft. Liver and spleen not palpable. No tenderness. No mass palpable. PSYCHIATRY: Alert and oriented x3 and does have some episodes of confusion. Mood and affect anxious appearing. MUSCULOSKELETAL: osteoarthritis evidenced on hands and knees. INVESTIGATIONS: LABS Accu-Cheks noted ASSESSMENT: - Pneumonia suspect gram-negative organism, present on admission causing acute hypoxic respiratory failure,Causing sepsis present on admission improving -Persistent atrial flutter fibrillation, now sinus bradycardia, status post DOLLY with cardioversion -Acute metabolic encephalopathy,from infection, improving -Gastroesophageal reflux disease. -Essential hypertension. -Hyperlipidemia. -Chronic blood medical debility uses a mechanical lift for transfer. -Acute chronic obstructive pulmonary disease exacerbation and an ex-smoker, improving -Chronic T9 through T10 fracture likely osteoporosis -Chronic restless leg syndrome. -Chronic insomnia for multiple medical problems. -Right rotator cuff tear. -Right elbow skin tear. PLAN: Continue by mouth diuretics, antibiotics and steroids to be discontinued in 24 hours, continue nebulized bronchodilators. Status post DOLLY with cardioversion currently in sinus bradycardia. If patient remains stable overnight we'll plan for discharge back to [facility], case management aware. ULTRASOUND APPLICATIONS SPECIALIST statement: Patient was seen and examined by nurse practitioner Tracy Brothers and all elements of the case discussed with attending Dr. Benitez
[2017-10-16] MEDS: RIVAROXABAN 15 MG TAB PO SCH (17:42)
[2017-10-16 18:05] LABS: Glucose,Whole Blood 123 mg/dL (75-99)
[2017-10-16 18:53] LABS: Glucose,Whole Blood 159 mg/dL (75-99)
[2017-10-16 20:58] LABS: Glucose,Whole Blood 110 mg/dL (75-99)
[2017-10-16] MEDS: ATORVASTATIN 20 MG TAB PO SCH (21:02)
[2017-10-16] MEDS: MELATONIN 5 MG TABLET PO SCH (21:04)
[2017-10-16] MEDS: TEMAZEPAM 15 MG CAP PO SCH (21:05)
[2017-10-17 06:28] LABS: Glucose,Whole Blood 84 mg/dL (75-99)
[2017-10-17] MEDS: INSULIN ASPART 100 UNIT/ML 1 ML 10 ML VIAL SQ SCH ×2 (06:32→12:07)
[2017-10-17] MEDS: LEVOTHYROXINE 125 MCG TAB PO SCH (06:32)
[2017-10-17 07:18] LABS: Anion Gap 7 mmol/L; Blood Urea Nitrogen 25 mg/dL (7-17); Calcium 8.8 mg/dL (8.4-10.2); Carbon Dioxide 39 mmol/L (22-30); Chloride 94 mmol/L (98-107); Glucose 73 mg/dL (74-99); Potassium 3.4 mmol/L (3.5-5.1); Sodium 140 mmol/L (137-145)
--- NOTE | 2017-10-17 09:28 | P.PN ---
Subjective Progress Note Date: 10/17/17 History of present illness: This is a pleasant 72-year-old female patient who resides in [facility], follows with Dr. Hamilton in the office. She has a known history of paroxysmal atrial fibrillation, on flecainide and Xarelto, COPD, hyperlipidemia and hypertension. Presented via EMS from the [facility] with complaints of worsening shortness of breath over the last couple of days. Upon admission she was found to be in atrial fibrillation with rapid ventricular response. She was febrile with a temperature of 101.6 and oxygen saturation was low. His x-ray showed difficult to exclude retrocardiac pneumonia. BNP 2530. Troponins were elevated at 0.288, 0.169 and 0.097. She does deny having any complaints of chest discomfort including pain pressure, tightness or heaviness. She does complain of an occasional flutter in her chest. In the emergency room she was initiated on a Cardizem drip and blood pressure dropped significantly, currently on flecainide only. Initially she was on BiPAP but is currently on 4-6 L nasal cannula. Upon examination, staff just finished cleaning the patient up and changing her putting. Patient is significantly short of breath with audible wheezing. 10/12/2017 Patient seen and examined this morning, breathing seems to be somewhat improved today overall. Denies any chest discomfort, no dizziness or lightheadedness. Heart rate this morning continues to be in the 120 range. Patient has considerable wheezing throughout today. 10/13/2017 Patient seen and examined this morning, denies any difficulty in breathing, denies any chest pain or palpitations. Continues to have a heart rate in the 130s to 140s. We will discontinue the flecainide and start the patient on oral amiodarone and attempt to get more optimal heart rate control. 10/14/2017 Patient seen and examined this morning, up with physical therapy sitting at the bedside. Looking overall much better today. She continues to be in atrial fibrillation with a rapid ventricular response, heart rate staying around the 140s. We will increase her dose of beta myra to 50 mg one tablet by mouth 3 times a day today. 10/15/2017 Patient seen and examined this morning, no complaints overall, however the heart rate assisted be in the 130s to [address] Hamilton did have a discussion with the patient this morning, she is on a maximum medical therapy for her A. fib however because the heart rate remains elevated she was advised to undergo a transesophageal echocardiographic study with subsequent cardioversion tomorrow the risks and benefits were explained to the patient in detail and she is willing to proceed. 10/17/2017 A shunt seen and examined this morning, status post DOLLY and cardioversion yesterday. Remaining in normal sinus rhythm. Blood pressure 116/68, heart rate 58, 98% on 2 L of oxygen. Calcium is 3.4 today which we will replace. Objective - Vital Signs Vital signs: Vital Signs Temp 96.9 F L 10/17/17 04:00 Pulse 57 L 10/17/17 04:00 Resp 16 10/17/17 04:00 BP 116/69 10/17/17 04:00 Pulse Ox 98 10/17/17 04:00 Intake & Output 10/16/17 10/17/17 10/17/17 18:59 06:59 18:59 Intake Total 400 320 100 Balance 400 320 100 Weight 83 kg 80 kg Intake: IV 320 Sodium Chloride 0.9% 1, 320 000 ml @ 20 mls/hr IV . Q24H [facility] Rx#:[id number] Oral 400 100 Other: Voiding Method Diaper Incontinent # Voids 4 1 # Bowel Movements 1 - Exam PHYSICAL EXAMINATION: HEENT: Head is atraumatic, normocephalic. Pupils equal, round. Neck is supple. There is no elevated jugular venous pressure. HEART EXAMINATION: Heart S1 and S2 normal CHEST EXAMINATION: Lungs reveal scattered wheezing throughout ABDOMEN: Soft, nontender. Bowel sounds are heard. No organomegaly noted. EXTREMITIES: 2+ peripheral pulses with no evidence of peripheral edema and no calf tenderness noted. NEUROLOGIC patient is awake, alert and oriented -3. . - Labs CBC & Chem 7: 10/13/17 05:44 10/17/17 05:45 Labs: Abnormal Lab Results - Last 24 Hours (Table) 10/16/17 10/16/17 10/16/17 Range/Units 16:56 18:50 20:56 Potassium (3.5-5.1) mmol/L Chloride (98-107) mmol/L Carbon Dioxide (22-30) mmol/L BUN (7-17) mg/dL Glucose (74-99) mg/dL POC Glucose (mg/dL) 123 H 159 H 110 H (75-99) mg/dL 10/17/17 Range/Units 05:45 Potassium 3.4 L (3.5-5.1) mmol/L Chloride 94 L (98-107) mmol/L Carbon Dioxide 39 H (22-30) mmol/L BUN 25 H (7-17) mg/dL Glucose 73 L (74-99) mg/dL POC Glucose (mg/dL) (75-99) mg/dL Assessment and Plan Plan: Assessment and plan #1 paroxysmal atrial fibrillation, early in normal sinus rhythm #2 exacerbation of COPD with sepsis # 3 status post DOLLY and cardioversion Plan From cardiology's perspective, patient may be able to be transferred back to [facility] once cleared by the primary. We will make her a follow-up appointment to see Dr. Hamilton in the office post discharge. DNP note has been reviewed, I agree with a documented findings and plan of care. Patient was seen and examined.
[2017-10-17] MEDS: IPRATROPIUM-ALBUTEROL 3 ML NEB INHALATION SCH ×2 (09:40→11:59)
[2017-10-17] MEDS: BUDESONIDE 0.5 MG/2 ML NEBU INHALATION SCH (09:40)
[2017-10-17 09:52] VITALS: TEMP 97.2
[2017-10-17] MEDS: cefTRIAXone IN SWFI 1,000 MG/10 ML SYRINGE IVP SCH (10:03)
[2017-10-17] MEDS: methylPREDNISolone SOD SUCCI 40 MG/ML 1 ML VIAL IV SCH (10:03)
[2017-10-17] MEDS: FUROSEMIDE 40 MG TAB PO SCH (10:04)
[2017-10-17] MEDS: SERTRALINE 100 MG TAB PO SCH (10:04)
[2017-10-17] MEDS: AMIODARONE 200 MG TAB PO SCH (10:04)
[2017-10-17] MEDS: FAMOTIDINE 20 MG TAB PO SCH (10:04)
[2017-10-17] MEDS: guaiFENesin 600 MG TABLET.ER PO SCH (10:04)
[2017-10-17] MEDS: POTASSIUM CHLORIDE ER 20 MEQ TAB.ER PO SCH (10:04)
[2017-10-17] MEDS: METOPROLOL TARTRATE 50 MG TAB PO SCH (10:05)
[2017-10-17 12:13] LABS: Glucose,Whole Blood 84 mg/dL (75-99)
[2017-10-17] MEDS: MULTIVITAMINS, THERA 1 EACH TAB PO SCH (12:17)
[2017-10-17 13:45] VITALS: BP 122/58; PULSE 46
--- NOTE | 2017-10-17 14:40 | P.DS ---
Providers Date of admission: 10/09/17 12:01 Expected date of discharge: 10/17/17 Attending physician: Celestine Benitez Consults: 10/09/17 14:59 Consult Physician Routine Consulting Provider: Maggi Hamilton Consult Reason/Comments: Afib RVR Do you want consulting provider notified?: Yes 10/09/17 21:17 Consult Physician Routine Consulting Provider: Abel Nunez Consult Reason/Comments: poss pneumonia Do you want consulting provider notified?: Yes Primary care physician: [facility] Course: 72-year-old female who presents with a cough for the past 3 days congested not able to bring up much a bridal weak and tired and rundown heart racing. On arrival patient was found to be in atrial fibrillation with rapid ventricular rate also had a fever and increased heart rate. Of note patient's baseline activity she requires mechanical lift be transferred. 10/10/2017 Lying in bed tired appearing, audible wheezing, states she feels better than she did when she arrived yesterday. Remains in A. fib on the monitor Cardizem continues, Appetite continues to be low and she continues to be sleepy daughter at the bedside concerned about her sleepiness. Patient has to be moved at the lift in and out of the bed, this is her baseline. Last BM 10/10/2017. 10/11/2017: Cardizem drip discontinued, remains on Tambocor and beta myra. Ate bites of her breakfast, mobility is accomplished with a Olga Lidia lift. This is her baseline. Pulmonology to see the patient. Last BM 10/10/2017. 10/12/2017: Staff tells that patient has been very confused seeing things hallucinating. Able to answer simple straightforward questions. Afebrile, remains in atrial fibrillation rate in the 110s to 120s. Xarelto for anticoagulation. Beta myra increased yesterday. Did not requires BiPAP support. Appetite is poor , primarily bedbound mobility is accomplished with the Olga Lidia left. 10/13/2017: Has transient hallucinations and confusion, at the present time patient is alert and able to answer questions eating breakfast. Afebrile Remains in atrial fibrillation with a rate in the 130s to 140s has not had need of BiPAP. Appetite slow to improve eating between 20 and 30% of her meals. Last BM 10/14/2017: Is aware that she is felt and been somewhat confused and hallucinating. At the present time is alert able to answer questions. Afebrile remains in atrial fibrillation with a rate in the 130s to 150s. Cardiology continues to adjust medications. Breathing is better remains on nasal cannula, has not needed the BiPAP. Appetite is slowly improving eating between 20-30% of her meals. Last BM 10/14/2017. 10/15/2017: Afebrile, remains in atrial fibrillation with a rate between 130-150. Cardiology is continuing to adjust medications. Breathing is better remains on nasal cannula no need for the BiPAP. Appetite is slowly improving continues to be between 20 and 30% of her meals. Last BM 10/14/2017. 10/16/2017: Able to answer questions and conversation is appropriate, no obvious signs of delirium or confusion. She had a DOLLY and cardioversion, currently in sinus rhythm with a rate in the 40s to 50s. Breathing is better remains on nasal cannula has not needed the BiPAP for several days now. Appetite is slowly to improve continues only to eat 2030% of her meals. Last BM 10/14/2017 Pt was followed by Dr. Benitez and we are following the pt for coverage today - She completed Abx course of Ceftriaxone for her Pneumonia. She was cleared by Cardiology to be discharged to [facility]. Medication reconciliation was done. New meds added are Amiodaraone and Metoprolol. PHYSICAL EXAM GENERAL APPEARANCE:. Sitting up in bed, mildly anxious appearing. HENT: Normocephalic, JVD not raised. Mass not palpable.: EYES: Pupils equal. Conjunctiva normal RESPIRATORY: Respiratory effort mildly increased. Lungs diminished bilaterally fair air entry expiratory and inspiratory wheezing on auscultation. CARDIOVASCULAR: First and second sound noted. Mild edema. ABDOMEN: Soft. Liver and spleen not palpable. No tenderness. No mass palpable. PSYCHIATRY: Alert and oriented x3 and does have some episodes of confusion. Mood and affect anxious appearing. MUSCULOSKELETAL: osteoarthritis evidenced on hands and knees. DISCHARGE DIAGNOSIS: - Pneumonia suspect gram-negative organism, present on admission causing acute hypoxic respiratory failure,Causing sepsis present on admission improving -Persistent atrial flutter fibrillation, now sinus bradycardia, status post DOLLY with cardioversion -Acute metabolic encephalopathy,from infection, improving -Gastroesophageal reflux disease. -Essential hypertension. -Hyperlipidemia. -Chronic blood medical debility uses a mechanical lift for transfer. -Acute chronic obstructive pulmonary disease exacerbation and an ex-smoker, improving -Chronic T9 through T10 fracture likely osteoporosis -Chronic restless leg syndrome. -Chronic insomnia for multiple medical problems. -Right rotator cuff tear. -Right elbow skin tear. Patient Condition at Discharge: Stable Plan - Discharge Summary Discharge Rx Participant: No New Discharge Prescriptions: New Amiodarone [Cordarone] 200 mg PO BID #60 tab Metoprolol Tartrate [Lopressor] 50 mg PO BID #60 tab Continue Calcium Carbonate [Tums] 500 mg PO TID PRN PRN Reason: Heartburn Albuterol Inhaler [Ventolin Hfa Inhaler] 2 puff INHALATION RT-QID PRN PRN Reason: Shortness Of Breath Fluticasone/Salmeterol [Advair 500-50 Diskus] 1 puff INHALATION RT-BID Atorvastatin [Lipitor] 20 mg PO HS Sertraline HCl [Zoloft] 100 mg PO DAILY rOPINIRole HCL [Requip] 0.5 mg PO HS Flecainide Acetate 50 mg PO Q12HR Furosemide [Lasix] 40 mg PO BID Ipratropium-Albuterol Nebulize [Duoneb 0.5 mg-3 mg/3 ml Soln] 3 ml INHALATION RT-TID PRN PRN Reason: Wheezing guaiFENesin [Mucinex] 600 mg PO DAILY PRN PRN Reason: Congestion Famotidine 20 mg PO DAILY Bisacodyl [Dulcolax] 10 mg RECTAL DAILY PRN PRN Reason: Constipation Levothyroxine Sodium [Synthroid] 125 mcg PO DAILY Magnesium Hydroxide [Milk of Magnesia] 2,400 mg PO DAILY PRN PRN Reason: Constipation Melatonin 5 mg PO HS Multivitamins, Thera [Multivitamin (formulary)] 1 tab PO DAILY Na Phos,M-B/Na Phos,Di-Ba [Fleet Adult] 133 ml RECTAL ONCE PRN PRN Reason: Constipation Potassium Chloride ER [K-Dur 20] 20 meq PO DAILY Rivaroxaban [Xarelto] 15 mg PO W/SUPPER Sennosides-Docusate Sodium [Senokot-S] 2 tab PO HS PRN PRN Reason: Constipation ALPRAZolam [Xanax] 0.25 mg PO TID PRN #30 tablet PRN Reason: Anxiety HYDROcodone/APAP 7.5-325MG [Leoma 7.5-325] 1 tab PO Q6H PRN #30 tab PRN Reason: Pain Temazepam [Restoril] 15 mg PO HS #30 cap Discontinued Acetaminophen Tab [Tylenol Tab] 500 - 1,000 mg PO Q6HR PRN MDD 3,000mg PRN Reason: Pain Ipratropium-Albuterol Nebulize [Duoneb 0.5 mg-3 mg/3 ml Soln] 3 ml INHALATION RT-BID Discharge Medication List Albuterol Inhaler [Ventolin Hfa Inhaler] 2 puff INHALATION RT-QID PRN 04/13/16 [ History] Atorvastatin [Lipitor] 20 mg PO HS 04/13/16 [History] Calcium Carbonate [Tums] 500 mg PO TID PRN 04/13/16 [History] Flecainide Acetate 50 mg PO Q12HR 04/13/16 [History] Fluticasone/Salmeterol [Advair 500-50 Diskus] 1 puff INHALATION RT-BID 04/13/16 [History] Sertraline HCl [Zoloft] 100 mg PO DAILY 04/13/16 [History] rOPINIRole HCL [Requip] 0.5 mg PO HS 04/13/16 [History] Furosemide [Lasix] 40 mg PO BID 06/02/16 [History] Famotidine 20 mg PO DAILY 03/16/17 [History] Ipratropium-Albuterol Nebulize [Duoneb 0.5 mg-3 mg/3 ml Soln] 3 ml INHALATION RT -TID PRN 03/16/17 [History] guaiFENesin [Mucinex] 600 mg PO DAILY PRN 03/16/17 [History] Bisacodyl [Dulcolax] 10 mg RECTAL DAILY PRN 10/09/17 [History] Levothyroxine Sodium [Synthroid] 125 mcg PO DAILY 10/09/17 [History] Magnesium Hydroxide [Milk of Magnesia] 2,400 mg PO DAILY PRN 10/09/17 [History] Melatonin 5 mg PO HS 10/09/17 [History] Multivitamins, Thera [Multivitamin (formulary)] 1 tab PO DAILY 10/09/17 [History ] Na Phos,M-B/Na Phos,Di-Ba [Fleet Adult] 133 ml RECTAL ONCE PRN 10/09/17 [History ] Potassium Chloride ER [K-Dur 20] 20 meq PO DAILY 10/09/17 [History] Rivaroxaban [Xarelto] 15 mg PO W/SUPPER 10/09/17 [History] Sennosides-Docusate Sodium [Senokot-S] 2 tab PO HS PRN 10/09/17 [History] ALPRAZolam [Xanax] 0.25 mg PO TID PRN #30 tablet 10/17/17 [Rx] Amiodarone [Cordarone] 200 mg PO BID #60 tab 10/17/17 [Rx] HYDROcodone/APAP 7.5-325MG [Leoma 7.5-325] 1 tab PO Q6H PRN #30 tab 10/17/17 [Rx ] Metoprolol Tartrate [Lopressor] 50 mg PO BID #60 tab 10/17/17 [Rx] Temazepam [Restoril] 15 mg PO HS #30 cap 10/17/17 [Rx] Follow up Appointment(s)/Referral(s): Maggi Hmailton MD [STAFF PHYSICIAN] - 1 Week Daquan Freeman DO [Primary Care Provider] - 3 Days Aram Castellon [NON-STAFF] - Abel Nunez MD [STAFF PHYSICIAN] - 1 Week Ambulatory/Diagnostic Orders: Complete Blood Count w/diff [LAB.AMB] Location: Determined By Patient Activity/Diet/Wound Care/Special Instructions: Heart healthy diet, uses a Olga Lidia lift for mobility unable to ambulate Discharge Disposition: TRANSFER TO SNF/ECF
--- NOTE | 2017-10-17 17:34 | PN ---
PROGRESS NOTE DATE OF SERVICE: 10/17/2017 She continued to have some shortness of breath, but is in no respiratory distress. On physical examination, respiratory rate is 16, pulse rate of 46, temperature 97.2, blood pressure 122/58, O2 saturation on 2 L by nasal cannula is 98%. HEENT is unremarkable. Chest reveals occasional wheeze. Cardiovascular system is an S1, S2. Abdomen is soft. There is no pedal edema. IMPRESSION: 1. Atrial fibrillation with rapid ventricular rate. 2. Congestive heart failure. 3. Bronchospasm. 4. Pneumonia. Continue current medications and agree with discharge planning. Medications and labs were reviewed. MMODL / IJN: [id number] /
--- NOTE | 2017-10-18 13:44 | PN ---
PROGRESS NOTE DATE OF SERVICE: 10/16/17 ATTENDING NOTE: Patient seen and examined by me on 10/16/17. Discussed with nurse practitioner, Ms. Brothers. The patient is doing better. Tolerating some diet. Had a DOLLY, was cardioverted successfully. PHYSICAL EXAMINATION: On examination temperature 96, pulse 53, respiration 16, blood pressure 101/61, pulse ox 98% on 2 L. Lying in bed, breathing better. LUNGS: Decreased breath sounds. Awake, answering questions. Accu-Cheks are noted. ASSESSMENT: 1. Persistent atrial flutter fibrillation, status post cardioversion, responded well. 2. Pneumonia, clinically doing much better. PLAN: Continue current medication and treatment plan. Patient overall doing much better. Hopefully can be discharged in 24 hours. MMODL / IJN: [id number] /
== END 2017-10-17 15:24 | DRG 871 ==
LOC: EC 09:43 → 6SEL 12:01
PROVIDERS: ADMIT Hospitalist; ATTEND Hospitalist
PROC: 5A09357 Assistance with Respiratory Ventilation, Less than 24 Consecutive Hours, Continuous Positive Airway Pressure (ICD-10-PCS; principal; 2017-10-09)
DX: A41.50 Gram-negative sepsis, unspecified (principal); R65.21 Severe sepsis with septic shock; I21.4 Non-ST elevation (NSTEMI) myocardial infarction; J96.01 Acute respiratory failure with hypoxia; I50.33 Acute on chronic diastolic (congestive) heart failure; G93.41 Metabolic encephalopathy; J15.6 Pneumonia due to other Gram-negative bacteria; I47.1 Supraventricular tachycardia; I11.0 Hypertensive heart disease with heart failure; I48.1 Persistent atrial fibrillation; J44.0 Chronic obstructive pulmonary disease with (acute) lower respiratory infection; J44.1 Chronic obstructive pulmonary disease with (acute) exacerbation; M80.08XA Age-related osteoporosis with current pathological fracture, vertebra(e), initial encounter for fracture; I48.0 Paroxysmal atrial fibrillation; I48.2 Chronic atrial fibrillation; G25.81 Restless legs syndrome; E03.9 Hypothyroidism, unspecified; G30.9 Alzheimer's disease, unspecified; F02.80 Dementia in other diseases classified elsewhere, unspecified severity, without behavioral disturbance, psychotic disturbance, mood disturbance, and anxiety; E78.5 Hyperlipidemia, unspecified; E87.6 Hypokalemia; F51.04 Psychophysiologic insomnia; K21.9 Gastro-esophageal reflux disease without esophagitis; R79.1 Abnormal coagulation profile; S51.011A Laceration without foreign body of right elbow, initial encounter; R26.9 Unspecified abnormalities of gait and mobility; R32 Unspecified urinary incontinence; F32.9 Major depressive disorder, single episode, unspecified; F41.9 Anxiety disorder, unspecified; F41.0 Panic disorder [episodic paroxysmal anxiety]; R15.9 Full incontinence of feces; Z74.01 Bed confinement status; Z79.01 Long term (current) use of anticoagulants; Z79.899 Other long term (current) drug therapy; Z88.5 Allergy status to narcotic agent; Z88.0 Allergy status to penicillin; Z88.8 Allergy status to other drugs, medicaments and biological substances; Z87.01 Personal history of pneumonia (recurrent); Z87.891 Personal history of nicotine dependence; Z96.653 Presence of artificial knee joint, bilateral; Z90.49 Acquired absence of other specified parts of digestive tract
CPT/HCPCS: 36415; 71045; 80048; 80053; 82550; 82553; 82803; 83036; 83605; 83735; 83880; 84443; 84484; 85025; 85610; 85730; 87040; 87502; 92960; 93005; 93306; 93312; 93320; 93325; 94640; 94660; 94760; 96365; 96366; 96368; 96375; 96376; 99285

== ENCOUNTER 2017-10-30 08:42 | Inpatient (IN) | payer MEDICARE, OTHER ==
--- NOTE | 2017-10-30 08:56 | ED ---
General Adult HPI - General Stated complaint: Diff Breathing Time Seen by Provider: 10/30/17 08:42 Source: RN notes reviewed - History of Present Illness Initial comments: This is a 72-year-old female with a known history of influenza B. Patient also has a past history of COPD and CHF. According to the report she also was thought to have pneumonia. Patient has a fever as well. Patient herself is somewhat demented but denies any current pain denies any problem breathing currently. Patient denies any abdominal pain. There's been no report of any vomiting or diarrhea. Patient is on Tamiflu. No other history can be obtained since there is no family or corporate driver with the patient. - Related Data Home Medications Medication Instructions Recorded Confirmed Albuterol Inhaler [Ventolin Hfa 2 puff INHALATION RT-QID PRN 04/13/16 10/30/17 Inhaler] Atorvastatin [Lipitor] 20 mg PO HS 04/13/16 10/30/17 Calcium Carbonate [Tums] 500 mg PO TID PRN 04/13/16 10/30/17 Fluticasone/Salmeterol [Advair 1 puff INHALATION RT-BID@0800,209904/13/1610/30 500-50 Diskus] Sertraline HCl [Zoloft] 100 mg PO DAILY@0800 04/13/16 10/30/17 rOPINIRole HCL [Requip] 0.5 mg PO HS@199904/13/16 10/30/17 Furosemide [Lasix] 40 mg PO BID@0600,1400 06/02/16 10/30/17 Famotidine 20 mg PO DAILY@0800 03/16/17 10/30/17 Ipratropium-Albuterol Nebulize 3 ml INHALATION RT-TID PRN 03/16/17 10/30/17 [Duoneb 0.5 mg-3 mg/3 ml Soln] guaiFENesin [Mucinex] 600 mg PO BID@0600,209903/16/17 10/30/17 Bisacodyl [Dulcolax] 10 mg RECTAL DAILY PRN 10/09/17 10/30/17 Levothyroxine Sodium [Synthroid] 125 mcg PO DAILY@0600 10/09/17 10/30/17 Magnesium Hydroxide [Milk of 2,400 mg PO DAILY PRN 10/09/17 10/30/17 Magnesia] Melatonin 5 mg PO HS 10/09/17 10/30/17 Multivitamins, Thera [Multivitamin 1 tab PO DAILY@1700 10/09/17 10/30/17 (formulary)] Na Phos,M-B/Na Phos,Di-Ba [Fleet 133 ml RECTAL ONCE PRN 10/09/17 10/30/17 Adult] Potassium Chloride ER [K-Dur 20] 20 meq PO DAILY 10/09/17 10/30/17 Rivaroxaban [Xarelto] 15 mg PO DAILY@1700 10/09/17 10/30/17 Sennosides-Docusate Sodium 2 tab PO HS PRN 10/09/17 10/30/17 [Senokot-S] Ensure Complete 1 can PO DAILY 10/30/17 10/30/17 HYDROcodone/APAP 7.5-325MG [[place] 1 tab PO Q6H PRN 10/30/17 10/30/17 7.5-325] Metoprolol Tartrate [Lopressor] 50 mg PO BID@0800,2100 10/30/17 10/30/17 Oseltamivir Phosphate [Tamiflu] 30 mg PO BID@0800,1800 10/30/17 10/30/17 Previous Rx's Medication Instructions Recorded ALPRAZolam [Xanax] 0.25 mg PO TID PRN #30 tablet 10/17/17 Amiodarone [Cordarone] 200 mg PO BID #60 tab 10/17/17 Temazepam [Restoril] 15 mg PO HS #30 cap 10/17/17 Allergies Allergy/AdvReac Type Severity Reaction Status Date / Time codeine Allergy Unknown Verified 10/30/17 08:44 methylprednisolone Allergy Unknown Verified 10/30/17 08:44 [From Medrol] Penicillins Allergy Unknown Verified 10/30/17 08:44 pentazocine Allergy Unknown Verified 10/30/17 08:44 hydromorphone HCl AdvReac Hallucinati Verified 10/30/17 08:44 [From Dilaudid] ons Review of Systems ROS Statement: Those systems with pertinent positive or pertinent negative responses have been documented in the HPI. ROS Other: All systems not noted in ROS Statement are negative. Past Medical History Past Medical History: Atrial Fibrillation, Asthma, Heart Failure, COPD, GERD/ Reflux, Hyperlipidemia, Hypertension, Thyroid Disorder Additional Past Medical History / Comment(s): Past pneumonia, t9-t10 vertebral fractures with gait dysfunction-mechanically lifted to wheelchair, UTI 08/2017, anemia, insomnia, RLS, osteoporosis, hypothyroid, incontinence bladder/bowel, past cellulitis L lower leg, current skin tear L elbow, current torn R rotator cuff. History of Any Multi-Drug Resistant Organisms: None Reported Past Surgical History: Appendectomy, Cholecystectomy, Orthopedic Surgery, Tonsillectomy, Tubal Ligation Additional Past Surgical History / Comment(s): right shoulder rotator cuff repair, bilateral knee replacements, colonoscopy. Past Anesthesia/Blood Transfusion Reactions: No Reported Reaction Smoking Status: Former smoker - Past Family History Mother Family Medical History: COPD Additional Family Medical History / Comment(s): emphysema Father Family Medical History: CVA/TIA General Exam - General Exam Comments Initial Comments: GENERAL: Patient is well-developed and well-nourished. Patient is nontoxic and well- hydrated and is in mild distress. ENT: Neck is soft and supple. No significant lymphadenopathy is noted. Oropharynx is clear. Moist mucous membranes. Neck has full range of motion without eliciting any pain. EYES: The sclera were anicteric and conjunctiva were pink and moist. Extraocular movements were intact and pupils were equal round and reactive to light. Eyelids were unremarkable. PULMONARY: Patient has Rales diffusely CARDIOVASCULAR: There is a regular rate and rhythm without any murmurs gallops or rubs. ABDOMEN: Soft and nontender with normal bowel sounds. No palpable organomegaly was noted. There is no palpable pulsatile mass. SKIN: Skin is clear with no lesions or rashes and otherwise unremarkable. NEUROLOGIC: Patient is alert and oriented 1. Cranial nerves II through XII are grossly intact. MUSCULOSKELETAL: Normal extremities with adequate strength and full range of motion. LYMPHATICS: No significant lymphadenopathy is noted PSYCHIATRIC: Normal psychiatric evaluation. Course Vital Signs 10/30/17 10/30/17 08:53 10:29 Temperature 100.9 F H Pulse Rate 56 L 60 Respiratory 28 H 24 Rate Blood Pressure 121/58 128/64 O2 Sat by Pulse 95 97 Oximetry Medical Decision Making - Medical Decision Making EKG shows a regular rhythm with a very poor quality it makes it difficult to see if there is a P-wave the rate is 100 beats a minute QRS QRS is 80 QT interval is 288 QTC is 371. Again the EKG is extremely poor quality Chest x-ray shows left lower lobe pneumonia. Patient already has a history of influenza B. - Lab Data Result diagrams: 10/30/17 09:00 10/30/17 09:00 Lab Results 10/30/17 10/30/17 10/30/17 Range/Units 09:00 09:00 09:00 WBC 7.0 (3.8-10.6) k/uL RBC 4.18 (3.80-5.40) m/uL Hgb 12.6 (11.4-16.0) gm/dL Hct 36.4 (34.0-46.0) % MCV 87.2 D (80.0-100.0) fL MCH 30.0 (25.0-35.0) pg MCHC 34.4 (31.0-37.0) g/dL RDW 16.2 H (11.5-15.5) % Plt Count 148 L (150-450) k/uL Neutrophils % 93 % Lymphocytes % 3 % Monocytes % 2 % Eosinophils % 2 % Basophils % 0 % Neutrophils # 6.5 (1.3-7.7) k/uL Lymphocytes # 0.2 L (1.0-4.8) k/uL Monocytes # 0.1 (0-1.0) k/uL Eosinophils # 0.1 (0-0.7) k/uL Basophils # 0.0 (0-0.2) k/uL Anisocytosis Slight PT (9.0-12.0) sec INR (<1.2) APTT (22.0-30.0) sec Sodium 138 (137-145) mmol/L Potassium 3.3 L (3.5-5.1) mmol/L Chloride 99 (98-107) mmol/L Carbon Dioxide 27 (22-30) mmol/L Anion Gap 12 mmol/L BUN 15 (7-17) mg/dL Creatinine 0.80 (0.52-1.04) mg/dL Est GFR (MDRD) Af Amer >60 (>60 ml/min/1.73 sqM) Est GFR (MDRD) Non-Af >60 (>60 ml/min/1.73 sqM) Glucose 101 H (74-99) mg/dL Plasma Lactic Acid Raheem (0.7-2.0) mmol/L Calcium 8.4 (8.4-10.2) mg/dL Magnesium 1.6 (1.6-2.3) mg/dL Total Bilirubin 0.7 (0.2-1.3) mg/dL AST 51 H (14-36) U/L ALT 30 (9-52) U/L Alkaline Phosphatase 78 (38-126) U/L Total Creatine Kinase 86 (30-135) U/L CK-MB (CK-2) 1.1 (0.0-2.4) ng/mL CK-MB (CK-2) Rel Index 1.3 Troponin I 0.127 H* (0.000-0.034) ng/mL NT-Pro-B Natriuret Pep pg/mL Total Protein 5.4 L (6.3-8.2) g/dL Albumin 3.2 L (3.5-5.0) g/dL 10/30/17 10/30/17 10/30/17 Range/Units 09:00 09:00 09:00 WBC (3.8-10.6) k/uL RBC (3.80-5.40) m/uL Hgb (11.4-16.0) gm/dL Hct (34.0-46.0) % MCV (80.0-100.0) fL MCH (25.0-35.0) pg MCHC (31.0-37.0) g/dL RDW (11.5-15.5) % Plt Count (150-450) k/uL Neutrophils % % Lymphocytes % % Monocytes % % Eosinophils % % Basophils % % Neutrophils # (1.3-7.7) k/uL Lymphocytes # (1.0-4.8) k/uL Monocytes # (0-1.0) k/uL Eosinophils # (0-0.7) k/uL Basophils # (0-0.2) k/uL Anisocytosis PT 10.6 (9.0-12.0) sec INR 1.1 (<1.2) APTT 25.8 (22.0-30.0) sec Sodium (137-145) mmol/L Potassium (3.5-5.1) mmol/L Chloride (98-107) mmol/L Carbon Dioxide (22-30) mmol/L Anion Gap mmol/L BUN (7-17) mg/dL Creatinine (0.52-1.04) mg/dL Est GFR (MDRD) Af Amer (>60 ml/min/1.73 sqM) Est GFR (MDRD) Non-Af (>60 ml/min/1.73 sqM) Glucose (74-99) mg/dL Plasma Lactic Acid Raheem 0.6 L (0.7-2.0) mmol/L Calcium (8.4-10.2) mg/dL Magnesium (1.6-2.3) mg/dL Total Bilirubin (0.2-1.3) mg/dL AST (14-36) U/L ALT (9-52) U/L Alkaline Phosphatase (38-126) U/L Total Creatine Kinase (30-135) U/L CK-MB (CK-2) (0.0-2.4) ng/mL CK-MB (CK-2) Rel Index Troponin I (0.000-0.034) ng/mL NT-Pro-B Natriuret Pep 2220 pg/mL Total Protein (6.3-8.2) g/dL Albumin (3.5-5.0) g/dL Disposition Clinical Impression: Influenza B, Pneumonia Disposition: ADMITTED IP TO THIS HOSP Referrals: Daquan Freeman DO [Primary Care Provider] - 1-2 days Time of Disposition: 11:00
[2017-10-30 09:12] LABS: Anisocytosis Slight; Basophils % (A) 0 %; Eosinophils # (A) 0.1 k/uL (0-0.7); Eosinophils % (A) 2 %; HCT 36.4 % (34.0-46.0); HGB 12.6 gm/dL (11.4-16.0); Lymphocytes # (A) 0.2 k/uL (1.0-4.8); Lymphocytes % (A) 3 %; MCHC 34.4 g/dL (31.0-37.0); Mean Platelet Volume 8.4; Monocytes # (A) 0.1 k/uL (0-1.0); Monocytes % (A) 2 %; Neutrophils # (A) 6.5 k/uL (1.3-7.7); Neutrophils % (A) 93 %; Platelet Count 148 k/uL (150-450); RBC 4.18 m/uL (3.80-5.40); RDW 16.2 % (11.5-15.5)
[2017-10-30 09:18] LABS: MCV 87.2 fL (80.0-100.0)
[2017-10-30 09:23] LABS: ALT 30 U/L (9-52); AST 51 U/L (14-36); Albumin 3.2 g/dL (3.5-5.0); Alkaline Phosphatase 78 U/L (38-126); Anion Gap 12 mmol/L; Blood Urea Nitrogen 15 mg/dL (7-17); Calcium 8.4 mg/dL (8.4-10.2); Carbon Dioxide 27 mmol/L (22-30); Chloride 99 mmol/L (98-107); Glucose 101 mg/dL (74-99); Magnesium 1.6 mg/dL (1.6-2.3); Potassium 3.3 mmol/L (3.5-5.1); Sodium 138 mmol/L (137-145); Total Bilirubin 0.7 mg/dL (0.2-1.3); Total Protein 5.4 g/dL (6.3-8.2)
[2017-10-30 09:26] LABS: INR 1.1 (<1.2); Partial Thromboplastin Time 25.8 sec (22.0-30.0); Prothrombin Time 10.6 sec (9.0-12.0)
[2017-10-30 09:44] LABS: Creatine Kinase MB 1.1 ng/mL (0.0-2.4)
--- NOTE | 2017-10-30 09:44 | XR ---
EXAMINATION TYPE: XR chest 2V DATE OF EXAM: 10/30/2017 COMPARISON: Prior chest x-ray 10/13/2017 HISTORY: Difficulty breathing TECHNIQUE: Frontal and lateral views of the chest are obtained. FINDINGS: There is increased AP diameter chest. Thoracic compression deformity noted in the lower ve rtebral body, there is resulting kyphosis. Patchy basilar density is present. No evident pneumothorax or pleural effusion. Cardiac mediastinal silhouette, pulmonary vascularity and renay are stable accou nting for differences in technique. Shoulders are high riding suggesting chronic rotator cuff tears. There is a scoliosis present. IMPRESSION: Correlate for lower lobe pneumonia versus atelectasis. Follow-up PA and lateral chest x- ray recommended.
[2017-10-30 09:46] LABS: Troponin I 0.127 ng/mL (0.000-0.034)
[2017-10-30] MEDS ORDERED: LEVOFLOXACIN 750MG-D5W PMX 750 MG in DEXTROSE/WATER 1 150ML.BAG IVPB STA (10:59)
[2017-10-30] MEDS ORDERED: LEVOFLOXACIN 750MG-D5W PMX 750 MG in DEXTROSE/WATER 1 150ML.BAG IVPB SCH (11:00)
[2017-10-30] MEDS ORDERED: PNEUMONIA PROTOCOL UTILIZED 1 EACH MISC PO PRN (11:00)
[2017-10-30] MEDS ORDERED: cefTRIAXone IN SWFI 1,000 MG/10 ML SYRINGE IVP STA (11:11)
[2017-10-30] MEDS ORDERED: SODIUM CHLORIDE 0.9% 500 ML IV ONE ×2 (11:38→17:38)
[2017-10-30] MEDS: AZITHROMYCIN 500 MG in SODIUM CHLORIDE 0.9% 250 ML IVPB SCH (13:25)
[2017-10-30] MEDS ORDERED: FUROSEMIDE 10 MG/ML 4 ML VIAL IV STA (16:08)
[2017-10-30] MEDS ORDERED: NOREPINEPHRIN 4 MG-0.9% NS PMX 4 MG/250 ML ML IV ONE (16:12)
[2017-10-30 17:04] LABS: ABG Base Excess -0.7 mmol/L; ABG HCO3 25 mmol/L (21-25); ABG Oxygen Saturation 93.4 % (94-97); ABG PCO2 50 mmHg (35-45); ABG PH 7.32 (7.35-7.45); ABG PO2 72 mmHg (83-108); ABG TCO2 27 mmol/L (19-24)
[2017-10-30] MEDS ORDERED: ACETAMINOPHEN IV (For NPO) 1,000 MG in EMPTY BAG 1 BAG IVPB PRN (17:12)
[2017-10-30] MEDS ORDERED: VANCOMYCIN IV PER PHARMACY 1 EACH MISC MISCELLANE PRN (17:39)
--- NOTE | 2017-10-30 17:51 | HP ---
HISTORY AND PHYSICAL DATE OF ADMISSION: 10/30/2017. PRESENTING COMPLAINT: Shortness of breath. HISTORY OF PRESENTING COMPLAINT: This is a 72-year-old patient who was brought into the ER in the early hours of this morning from the [facility]. The patient was positive for influenza B. Patient was having fevers. The patient has been rather short of breath, tachypneic, barely able to give a history, having some loose stools about 2 or 3 times a day. Per the EMS report, the staff had come to check her in the morning and found her to be breathing really hard, and patient also was somewhat delirious, was breathing about 25 per minute, labored with accessory muscles. The patient recently had completed a course of treatment for pneumonia. The patient recently had been in the hospital for a rather extended period. Last admission the patient was treated for pneumonia, also had atrial flutter/fibrillation and did have cardioversion. The patient's chronic stable medical otherwise include GERD, hypertension, hyperlipidemia, COPD, chronic T9 and T10 fracture from osteoporosis, restless legs syndrome, right rotator cuff tear. The patient has a Olga Lidia lift for transfers because of chronic medical debility. REVIEW OF SYSTEMS: Cannot be done, as patient is rather short of breath and can barely talk. PAST MEDICAL HISTORY: 1. Right rotator cuff tear. 2. Chronic insomnia. 3. Restless legs syndrome. 4. T9, T10 fracture, likely osteoporotic. 5. COPD. 6. Medical debility. 7. Hyperlipidemia. 8. Hypertension. 9. GERD. 10.Flutter/fibrillation. PAST SURGICAL HISTORY: 1. Appendectomy. 2. Cholecystectomy. 3. Tonsillectomy. 4. Tubal ligation. 5. Right shoulder rotator cuff repair. 6. Bilateral knee replacements. PSYCH HISTORY: Anxiety, depression. SOCIAL HISTORY: Currently getting rehab at [facility]. Uses a mechanical lift to wheelchair. She can feed herself. Needs assistance with ADLs. The patient did start smoking as a teenager and quit in . Did smoke about a pack a day. FAMILY HISTORY: COPD. HOME MEDICATIONS: 1. Requip 0.5 mg p.o. at bedtime. 2. Mucinex 600 mg p.o. b.i.d. 3. Restoril 15 mg p.o. at bedtime. 4. Zoloft 100 mg p.o. daily. 5. Senokot-S two tablets p.o. at bedtime. 6. Xarelto 15 mg p.o. daily. 7. Potassium 20 mEq p.o. daily. 8. Tamiflu 30 mg p.o. b.i.d. 9. Adult [place] 133 mL rectally once p.r.n. 10.Multivitamin 1 tablet p.o. daily. 11.Lopressor 50 mg p.o. b.i.d. 12.Melatonin 5 mg p.o. at bedtime. 13.Milk of magnesia 2400 mg p.o. daily p.r.n. 14.Synthroid 125 mcg p.o. daily. 15.DuoNeb t.i.d. p.r.n. 16.[place] 7.5 one tablet q.6 p.r.n. 17.Lasix 40 mg p.o. b.i.d. 18.Advair 500/50 one puff b.i.d. 19.Pepcid 20 mg p.o. daily. 20.Ensure 1 can p.o. daily. 21.Tums 500 mg p.o. t.i.d. p.r.n. 22.Dulcolax 10 mg rectally daily p.r.n. 23.Lipitor 20 mg at bedtime. 24.Cordarone 200 mg p.o. b.i.d. 25.Ventolin HFA 2 puffs q.i.d. p.r.n. 26.Xanax 0.25 p.o. t.i.d. p.r.n. ALLERGIES: 1. CODEINE. 2. MEDROL. 3. PENICILLIN. 4. PENTAZOSINE. 5. DILAUDID. PHYSICAL EXAMINATION: Temperature 103.5, pulse 64, respiration 26, blood pressure 111/49, pulse ox 96% on Ventimask. GENERAL APPEARANCE: Propped up in bed with a Ventimask. Rather short of breath. EYES: Pupils equal. Conjunctivae normal. HEENT: External appearance of nose and ears normal. Oral cavity with dry mucous membrane. Ventimask is in place. NECK: JVD unable to assess. Mass not palpable. RESPIRATORY: Effort increased. Accessory muscles are working. Patient is barely able to speak. CARDIOVASCULAR: First and second sounds normal. No edema. \ ABDOMEN: Soft, nontender. Liver and spleen not palpable. LYMPHATIC: No lymph node palpable in neck or axillae. PSYCHIATRY: Patient is rather anxious; can barely talk right now. NEUROLOGICAL: Pupils equal. No facial asymmetry. Does move all her limbs. INVESTIGATIONS: White count 7, hemoglobin 12.6, potassium 3.3. BUN and creatinine are normal. Troponin 0.127. ProBNP 2220. Chest x-ray shows cardiomegaly, possible right lower lobe infiltrate. ASSESSMENT: 1. Acute influenza B pneumonitis with possible secondary bacterial infection in the right lower lobe causing acute hypoxic respiratory failure and sepsis, present on admission. 2. Acute metabolic encephalopathy and acute delirium from above. 3. History of atrial flutter/fibrillation, status post cardioversion, on Eliquis. 4. Gastroesophageal reflux disease. 5. Essential hypertension. 6. Hyperlipidemia. 7. Chronic medical debility. Patient uses a mechanical lift for transfer to wheelchair. 8. Acute chronic obstructive pulmonary disease exacerbation in an ex-smoker. 9. Chronic T9, T10 vertebral body fracture, likely from osteoporosis. 10.Chronic restless leg syndrome. 11.Chronic insomnia. 12.Right rotator cuff tear. PLAN: Patient's home medications are resumed. Patient is put on IV antibiotics, nebulized bronchodilators. The patient's respiratory therapy manager will be consulted. After I saw the patient and I came downstairs, my nurse practitioner Tracy was called; patient was becoming more distressed, and patient is being transferred to the ICU under care of mattress packer consultation. Prognosis guarded. MMODL / IJN: [id number] /
[2017-10-30 18:07] LABS: Basophils % (A) 0 %; Eosinophils # (A) 0.1 k/uL (0-0.7); Eosinophils % (A) 1 %; HCT 40.4 % (34.0-46.0); HGB 12.8 gm/dL (11.4-16.0); Lymphocytes # (A) 0.1 k/uL (1.0-4.8); Lymphocytes % (A) 1 %; MCH 29.1 pg (25.0-35.0); MCHC 31.8 g/dL (31.0-37.0); MCV 91.4 fL (80.0-100.0); Mean Platelet Volume 8.6; Monocytes # (A) 0.1 k/uL (0-1.0); Monocytes % (A) 1 %; Neutrophils % (A) 96 %; Platelet Count 163 k/uL (150-450); RBC 4.42 m/uL (3.80-5.40); RDW 15.4 % (11.5-15.5); WBC 9.4 k/uL (3.8-10.6)
[2017-10-30 18:17] LABS: Anion Gap 14 mmol/L; Blood Urea Nitrogen 16 mg/dL (7-17); Carbon Dioxide 26 mmol/L (22-30); Chloride 100 mmol/L (98-107); Glucose 58 mg/dL (74-99); Sodium 140 mmol/L (137-145)
[2017-10-30 18:22] LABS: Potassium 2.9 mmol/L (3.5-5.1)
[2017-10-30] MEDS ORDERED: Potassium Replacement Protocol 1 EACH MISC MISCELLANE PRN (18:22)
--- NOTE | 2017-10-30 18:22 | XR ---
EXAMINATION TYPE: XR chest 1V DATE OF EXAM: 10/30/2017 COMPARISON: Today HISTORY: Fluid overload TECHNIQUE: Single frontal view of the chest is obtained. FINDINGS: Heart appears slightly enlarged. There is no gross heart failure. There is a 8 x 3 cm area of consolidation lateral to the right pulmonary hilum. There is also some infiltrate at the costophr enic angles. There are chest leads. IMPRESSION: No gross heart failure. There are increasing pulmonary infiltrates compared to exam this morning. Mild cardiomegaly.
[2017-10-30] MEDS ORDERED: VANCOMYCIN 1,750 MG in SODIUM CHLORIDE 0.9% 250 ML IVPB ONE (18:30)
[2017-10-30] MEDS: SODIUM CHLORIDE 0.9% 1,000 ML IV SCH (18:47)
[2017-10-30] MEDS: OSELTAMIVIR 60 MG/10 ML ORAL SYRINGE PO SCH (18:47)
[2017-10-30] MEDS: POTASSIUM CHLORIDE 10 MEQ in WATER FOR INJECTION 1 100ML.BAG IVPB SCH ×3 (18:49→22:55)
[2017-10-30 19:23] LABS: Amorphous Sediment,Urine Few /hpf; Appearance,Urine Cloudy (Clear); Bacteria,Urine Occasional /hpf; Bilirubin,Urine Negative (Negative); Blood,Urine Small (Negative); Color,Urine Yellow; Glucose,Urine (UA) Negative (Negative); Hyaline Casts,Urine 56 /lpf (0-2); Ketones,Urine Negative (Negative); Leukocyte Esterase,Urine Negative (Negative); Mucus,Urine Few /hpf; Nitrite,Urine Negative (Negative); Protein,Urine Trace (Negative); RBC,Urine 19 /hpf (0-5); Specific Gravity,Urine 1.009 (1.001-1.035); Squamous Epithelial Cell,Urine 3 /hpf (0-4); Urobilinogen,Urine <2.0 mg/dL (<2.0); WBC,Urine 2 /hpf (0-5)
[2017-10-30] MEDS ORDERED: IBUPROFEN IV 800 MG in SODIUM CHLORIDE 0.9% 250 ML IV PRN (19:23)
[2017-10-30] MEDS ORDERED: DEXTROSE 50%-WATER 50 ML SYRINGE IVP ONE (19:34)
[2017-10-30 19:35] LABS: Glucose,Whole Blood 61 mg/dL (75-99)
[2017-10-30 20:02] LABS: Glucose,Whole Blood 111 mg/dL (75-99)
[2017-10-30] MEDS: ALBUTEROL NEBULIZED 2.5 MG/3 ML INHALATION PRN (20:08)
[2017-10-30] MEDS ORDERED: MIDAZOLAM 2 MG/2 ML VIAL ONE (20:20)
[2017-10-30] MEDS ORDERED: SUCCINYLCHOLINE CHLORIDE 100 MG/5 ML SYR IV ONE (20:20)
[2017-10-30] MEDS ORDERED: PROPOFOL 10 MG/ML 20 ML VIAL IV ONE (20:20)
[2017-10-30] MEDS ORDERED: PROPOFOL 100 ML IV ONE (20:21)
[2017-10-30 20:58] LABS: ABG Base Excess -2.7 mmol/L; ABG HCO3 23 mmol/L (21-25); ABG Oxygen Saturation 99.7 % (94-97); ABG PCO2 42 mmHg (35-45); ABG PH 7.35 (7.35-7.45); ABG PO2 258 mmHg (83-108); ABG TCO2 24 mmol/L (19-24)
--- NOTE | 2017-10-30 21:17 | XR ---
EXAMINATION TYPE: XR chest 1V portable DATE OF EXAM: 10/30/2017 COMPARISON: Today HISTORY: Tube placement TECHNIQUE: Single frontal view of the chest is obtained. FINDINGS: Endotracheal tube has tip 1.5 cm from the franco and could be pulled back 1 to 2 cm. There is a 5 cm area of consolidation around the right pulmonary hilum that is increased compared to the e xam 3 hours ago. There is no gross heart failure. There is nasogastric tube that appears in good posi tion. Thoracic aorta is atheromatous. IMPRESSION: Endotracheal tube could be pulled back slightly. There is increasing consolidation around the right pulmonary hilum compared to recent exam.
[2017-10-30] MEDS: NOREPINEPHRIN 4 MG-0.9% NS PMX 4 MG/250 ML ML IV SCH (22:56)
[2017-10-30] MEDS: HEPARIN SODIUM,PORCINE 5,000 UNIT/ML 1 ML VIAL SQ SCH (23:07)
[2017-10-31] MEDS: PROPOFOL 1,000 MG in EMPTY BAG 1 BAG IV SCH ×4 (01:14→18:57)
[2017-10-31] MEDS: NOREPINEPHRIN 4 MG-0.9% NS PMX 4 MG/250 ML ML IV SCH ×3 (01:15→16:05)
[2017-10-31] MEDS: POTASSIUM CHLORIDE ORAL LIQUID 40 MEQ/30 ML CUP NG-TUBE SCH ×5 (03:00→18:58)
[2017-10-31 04:54] LABS: ABG Base Excess -1.9 mmol/L; ABG HCO3 22 mmol/L (21-25); ABG Oxygen Saturation 97.8 % (94-97); ABG PCO2 31 mmHg (35-45); ABG PH 7.46 (7.35-7.45); ABG PO2 102 mmHg (83-108); ABG TCO2 23 mmol/L (19-24)
[2017-10-31 05:02] LABS: Anion Gap 9 mmol/L; Blood Urea Nitrogen 13 mg/dL (7-17); Calcium 7.5 mg/dL (8.4-10.2); Carbon Dioxide 23 mmol/L (22-30); Chloride 110 mmol/L (98-107); Glucose 105 mg/dL (74-99); Magnesium 1.3 mg/dL (1.6-2.3); Phosphorus 2.2 mg/dL (2.5-4.5); Potassium 4.1 mmol/L (3.5-5.1); Sodium 142 mmol/L (137-145)
[2017-10-31 05:14] LABS: Basophils % (A) 0 %; Eosinophils % (A) 0 %; HCT 39.4 % (34.0-46.0); HGB 12.9 gm/dL (11.4-16.0); Lymphocytes # (A) 0.3 k/uL (1.0-4.8); Lymphocytes % (A) 2 %; MCH 28.9 pg (25.0-35.0); MCHC 32.7 g/dL (31.0-37.0); MCV 88.4 fL (80.0-100.0); Mean Platelet Volume 8.4; Monocytes # (A) 0.3 k/uL (0-1.0); Monocytes % (A) 2 %; Neutrophils # (A) 14.8 k/uL (1.3-7.7); Neutrophils % (A) 95 %; Platelet Count 157 k/uL (150-450); RBC 4.46 m/uL (3.80-5.40); RDW 15.6 % (11.5-15.5); WBC 15.6 k/uL (3.8-10.6)
[2017-10-31] MEDS ORDERED: SODIUM PHOSPHATE 10 MMOL in SODIUM CHLORIDE 0.9% 250 ML IVPB ONE (05:25)
[2017-10-31] MEDS ORDERED: Phosphorus Replacement Protoco 1 EACH MISC MISCELLANE PRN (05:25)
[2017-10-31] MEDS ORDERED: Magnesium Replacement Protocol 1 EACH MISC MISCELLANE PRN (05:26)
[2017-10-31] MEDS: SODIUM CHLORIDE 0.9% 1,000 ML IV SCH ×2 (06:16→14:30)
[2017-10-31] MEDS: VANCOMYCIN 1,500 MG in SODIUM CHLORIDE 0.9% 250 ML IVPB SCH ×2 (06:16→17:50)
--- NOTE | 2017-10-31 07:16 | XR ---
EXAMINATION TYPE: XR chest 1V portable DATE OF EXAM: 10/31/2017 HISTORY: Tube placement. REFERENCE: Previous study dated 10/30/2017.. FINDINGS: The patient is ET tube and NG tube remain in place, unchanged in appearance. Heart size upper limits of normal. There is masslike consolidation in the right midlung. There is lef t basilar airspace disease. I suspect small, bilateral effusions. IMPRESSION: 1. BORDERLINE CARDIOMEGALY. 2. MASSLIKE CONSOLIDATION, RIGHT MIDLUNG. 3. I SUSPECT SMALL, BILATERAL EFFUSIONS.
[2017-10-31 08:00] LABS: ABG Base Excess -1.8 mmol/L; ABG HCO3 22 mmol/L (21-25); ABG Oxygen Saturation 97.4 % (94-97); ABG PCO2 30 mmHg (35-45); ABG PH 7.47 (7.35-7.45); ABG PO2 97 mmHg (83-108); ABG TCO2 23 mmol/L (19-24)
--- NOTE | 2017-10-31 08:03 | P.CNPUL ---
History of Present Illness Consult date: 10/30/17 (Late entry note) Reason for consult: dyspnea, cough, hypoxemia, pneumonia Chief complaint: Hypoxia, shortness of breath History of present illness: Mrs. Parsons is well-known to me she is a 72-year-old female who came into the hospital from ECF with the use of recent history of influenza B pneumonia with increasing acute onset of shortness of breath of one day duration was spiking fever cough not feeling well patient was very weak and exhausted as well patient was admitted from the emergency department on the selective care due to shortness of breath she was placed on BiPAP and eventually transferred to the ICU, consult was initiated with another edger feeder subsequently switched to az , she was seen and evaluated examined patient was hypotensive as well had a fluid challenge of crystalloid 500 mL and another 500 mL are being given patient oxygenation is fairly satisfactory on BiPAP but she remains tachypneic and somnolent noted that she has received a dose of Lasix as well but however patient clearly is volume depleted rather benefit from fluid resuscitation rather than diuresis, further workup and evaluation revealed patient has a influenza B pneumonia and possibly secondary bacterial pneumonia as well patient is being monitor observe in the ICU if decompensated would consider doing intubation continue fluid resuscitation and vasopressors, patient will likely need a central line as well Patient recently hospitalized for acute exacerbation of CHF rapid atrial fibrillation and acute diastolic heart failure she had bilateral pleural effusion which are being monitored and observed improved with therapy, patient was seen and evaluated by cardiovascular services and she underwent a elective cardioversion According to the report she also was thought to have pneumonia in an ECF. Patient has a fever as well. Patient herself is somewhat demented but denies any current pain denies any problem breathing currently. Patient denies any abdominal pain. There's been no report of any vomiting or diarrhea. Patient is on Tamiflu. Overall patient is a poor historian not much detail can be obtained from her Review of Systems ROS unobtainable: due to mental status All systems: negative Past Medical History Past Medical History: Atrial Fibrillation, Asthma, Heart Failure, COPD, GERD/ Reflux, Hyperlipidemia, Hypertension, Thyroid Disorder Additional Past Medical History / Comment(s): Past pneumonia, t9-t10 vertebral fractures with gait dysfunction-mechanically lifted to wheelchair, UTI 08/2017, anemia, insomnia, RLS, osteoporosis, hypothyroid, incontinence bladder/bowel, past cellulitis L lower leg, current skin tear L elbow, current torn R rotator cuff. History of Any Multi-Drug Resistant Organisms: None Reported Past Surgical History: Appendectomy, Cholecystectomy, Orthopedic Surgery, Tonsillectomy, Tubal Ligation Additional Past Surgical History / Comment(s): right shoulder rotator cuff repair, bilateral knee replacements, colonoscopy. Past Anesthesia/Blood Transfusion Reactions: No Reported Reaction Past Psychological History: Anxiety, Depression, Panic Disorder Additional Psychological History / Comment(s): Pt resides at [facility]. She is a mechanical lift to wheelchair. She feeds herself. She needs assist with other ADLs. Smoking Status: Former smoker Past Alcohol Use History: None Reported Additional Past Alcohol Use History / Comment(s): Pt started smoking as a teenager and quit in 1996. She was a ppd smoker. Past Drug Use History: None Reported - Past Family History Mother Family Medical History: COPD Additional Family Medical History / Comment(s): emphysema Father Family Medical History: CVA/TIA Medications and Allergies Home Medications Medication Instructions Recorded Confirmed Type Albuterol Inhaler [Ventolin Hfa 2 puff INHALATION RT-QID PRN 04/13/16 10/30/17 History Inhaler] Atorvastatin [Lipitor] 20 mg PO HS 04/13/16 10/30/17 History Calcium Carbonate [Tums] 500 mg PO TID PRN 04/13/16 10/30/17 History Fluticasone/Salmeterol [Advair 1 puff INHALATION RT-BID@0800,209904/13/1610/30 History 500-50 Diskus] Sertraline HCl [Zoloft] 100 mg PO DAILY@0800 04/13/16 10/30/17 History rOPINIRole HCL [Requip] 0.5 mg PO HS@199904/13/16 10/30/17 History Furosemide [Lasix] 40 mg PO BID@0600,1400 06/02/16 10/30/17 History Famotidine 20 mg PO DAILY@0800 03/16/17 10/30/17 History Ipratropium-Albuterol Nebulize 3 ml INHALATION RT-TID PRN 03/16/17 10/30/17 History [Duoneb 0.5 mg-3 mg/3 ml Soln] guaiFENesin [Mucinex] 600 mg PO BID@0600,2100 03/16/17 10/30/17 History Bisacodyl [Dulcolax] 10 mg RECTAL DAILY PRN 10/09/17 10/30/17 History Levothyroxine Sodium [Synthroid] 125 mcg PO DAILY@0600 10/09/17 10/30/17 History Magnesium Hydroxide [Milk of 2,400 mg PO DAILY PRN 10/09/17 10/30/17 History Magnesia] Melatonin 5 mg PO HS 10/09/17 10/30/17 History Multivitamins, Thera [Multivitamin 1 tab PO DAILY@1700 10/09/17 10/30/17 History (formulary)] Na Phos,M-B/Na Phos,Di-Ba [Fleet 133 ml RECTAL ONCE PRN 10/09/17 10/30/17 History Adult] Potassium Chloride ER [K-Dur 20] 20 meq PO DAILY 10/09/17 10/30/17 History Rivaroxaban [Xarelto] 15 mg PO DAILY@1700 10/09/17 10/30/17 History Sennosides-Docusate Sodium 2 tab PO HS PRN 10/09/17 10/30/17 History [Senokot-S] ALPRAZolam [Xanax] 0.25 mg PO TID PRN #30 tablet 10/17/17 10/30/17 Rx Amiodarone [Cordarone] 200 mg PO BID #60 tab 10/17/17 10/30/17 Rx Temazepam [Restoril] 15 mg PO HS #30 cap 10/17/17 10/30/17 Rx Ensure Complete 1 can PO DAILY 10/30/17 10/30/17 History HYDROcodone/APAP 7.5-325MG [[place] 1 tab PO Q6H PRN 10/30/17 10/30/17 History 7.5-325] Metoprolol Tartrate [Lopressor] 50 mg PO BID@0800,2100 10/30/17 10/30/17 History Oseltamivir Phosphate [Tamiflu] 30 mg PO BID@0800,1800 10/30/17 10/30/17 History Allergies Allergy/AdvReac Type Severity Reaction Status Date / Time codeine Allergy Unknown Verified 10/30/17 08:44 methylprednisolone Allergy Unknown Verified 10/30/17 08:44 [From Medrol] Penicillins Allergy Unknown Verified 10/30/17 08:44 pentazocine Allergy Unknown Verified 10/30/17 08:44 hydromorphone HCl AdvReac Hallucinati Verified 10/30/17 08:44 [From Dilaudid] ons Physical Exam Vitals: Vital Signs Temp Pulse Pulse Resp BP BP Pulse Ox 10/31/17 06:00 88 20 96 10/31/17 05:30 80 20 96 10/31/17 05:00 72 20 97 10/31/17 04:30 79 20 96 10/31/17 04:00 98 F 74 20 96 10/31/17 03:30 75 20 96 10/31/17 03:00 69 20 96 10/31/17 02:30 77 20 96 10/31/17 02:00 65 20 97 10/31/17 01:30 59 L 20 97 10/31/17 01:00 62 20 97 10/31/17 00:30 73 20 97 10/31/17 00:00 98.5 F 61 20 98 10/30/17 23:47 20 10/30/17 23:30 71 20 97 10/30/17 23:00 82 20 97 10/30/17 22:50 69 20 97 10/30/17 22:40 73 20 97 10/30/17 22:30 70 20 97 10/30/17 22:20 71 20 97 10/30/17 22:10 72 20 97 10/30/17 22:00 73 20 97 10/30/17 21:50 73 20 97 10/30/17 21:40 76 20 97 10/30/17 21:30 72 20 97 10/30/17 21:20 80 20 97 10/30/17 21:10 75 20 97 10/30/17 21:00 98.9 F 76 20 66/55 98 10/30/17 20:50 80 20 91/46 98 10/30/17 20:40 78 23 73/58 99 10/30/17 20:30 78 32 H 100/55 97 10/30/17 20:25 77 10/30/17 20:20 75 30 H 102/43 97 10/30/17 20:12 77 97 10/30/17 20:10 75 31 H 89/40 95 10/30/17 20:00 77 32 H 92/47 95 10/30/17 19:40 80 32 H 96/50 95 10/30/17 19:30 80 27 H 98/41 95 10/30/17 19:20 81 33 H 158/117 95 10/30/17 19:10 79 36 H 68/41 94 L 10/30/17 19:00 100.9 F H 76 35 H 78/52 93 L 10/30/17 18:50 75 28 H 74/40 94 L 10/30/17 18:40 77 34 H 98/51 97 10/30/17 18:30 79 35 H 105/59 96 10/30/17 18:20 79 35 H 113/64 96 10/30/17 18:10 79 36 H 102/48 94 L 10/30/17 18:00 76 33 H 102/58 96 10/30/17 17:50 76 33 H 95/52 96 10/30/17 17:40 72 33 H 81/33 95 10/30/17 17:30 70 35 H 84/37 94 L 10/30/17 17:20 82 33 H 90/47 96 10/30/17 17:10 81 35 H 86/45 94 L 10/30/17 17:00 69 35 H 96/50 10/30/17 16:50 72 10/30/17 16:40 90/47 10/30/17 15:50 83/47 10/30/17 15:45 88/50 10/30/17 15:40 103.5 F H 76/37 10/30/17 12:47 98.4 F 64 22 111/49 96 10/30/17 11:46 99.0 F 10/30/17 11:39 60 24 95/51 98 10/30/17 11:29 98.3 F 64 22 111/49 97 10/30/17 10:29 60 24 128/64 97 10/30/17 08:53 100.9 F H 56 L 28 H 121/58 95 Intake and Output 10/30/17 10/31/17 10/31/17 22:59 06:59 14:59 Intake Total 1450 1310.500 Output Total 697 695 Balance 753 615.500 Intake: IV 1450 925 Potassium Chloride 10 meq 300 In Water For Injection 1 100ml.bag @ 100 mls/hr IVPB Q1H [facility] Rx#: [id number] Sodium Chloride 0.9% 1, 400 800 000 ml @ 100 mls/hr IV . Q10H [facility] Rx#:[id number] Sodium Chloride 0.9% 500 500 ml @ 999 mls/hr IV .Q31M ONE Rx#:[id number] Vancomycin 1,750 mg In 250 125 Sodium Chloride 0.9% 250 ml @ 125 mls/hr IVPB ONCE ONE Rx#:[id number] Intake, IV Titration 385.500 Amount Norepinephrin 4 mg-0.9% 385.500 Ns Pmx 4 mg In 250 ml @ Titrate IV .Q0M [facility] Rx#: [id number] Output: Urine 697 695 Other: Voiding Method Indwelling Catheter Indwelling Catheter # Bowel Movements 0 0 Weight 71.5 kg ABP, PAP, CO, CI - Last 8 Hours Arterial Blood Pressure 132/66 Arterial Blood Pressure 134/62 Arterial Blood Pressure 143/59 Arterial Blood Pressure 103/52 Arterial Blood Pressure 108/53 Arterial Blood Pressure 103/50 Arterial Blood Pressure 111/56 Arterial Blood Pressure 116/53 Arterial Blood Pressure 139/57 Arterial Blood Pressure 152/57 Arterial Blood Pressure 146/57 Arterial Blood Pressure 121/52 Arterial Blood Pressure 147/54 GENERAL: Patient is well-developed and well-nourished. Patient appears to be well- hydrated and is in mild to moderate respiratory distress. ENT: Neck is soft and supple. Neck veins are prominent but no significant JVD noted No significant lymphadenopathy is noted. Oropharynx is clear. Moist mucous membranes. Neck has full range of motion without eliciting any pain. EYES: The sclera were anicteric and conjunctiva were pink and moist. Extraocular movements were intact and pupils were equal round and reactive to light. Eyelids were unremarkable. PULMONARY: Patient has Rales diffusely, with an expiratory rhonchi and crackles they're present bilaterally patient has slightly prolonged expiratory phase as well CARDIOVASCULAR: There is a regular rate and rhythm without any murmurs gallops or rubs. ABDOMEN: Soft and nontender with normal bowel sounds. No palpable organomegaly was noted. There is no palpable pulsatile mass. SKIN: Skin is clear with no lesions or rashes and otherwise unremarkable. NEUROLOGIC: Patient is alert and oriented 1. Cranial nerves II through XII are grossly intact. Rest of the neuro exam is fairly unremarkable however difficult to accomplish MUSCULOSKELETAL: Normal extremities with adequate strength and full range of motion. LYMPHATICS: No significant lymphadenopathy is noted PSYCHIATRIC: Normal psychiatric evaluation. No obvious distress is present from mental standpoint Results - Laboratory Findings Comments: Labs and radiographic studies reviewed CBC and BMP: 10/31/17 04:15 10/31/17 04:15 ABG ABG pH 7.46 (7.35-7.45) H 10/31/17 04:46 ABG pCO2 31 mmHg (35-45) L 10/31/17 04:46 ABG pO2 102 mmHg (83-108) 10/31/17 04:46 ABG O2 Saturation 97.8 % (94-97) H 10/31/17 04:46 PT/INR, D-dimer PT 10.6 sec (9.0-12.0) 10/30/17 09:00 INR 1.1 (<1.2) 10/30/17 09:00 Abnormal lab findings: Abnormal Labs 10/30/17 10/30/17 10/30/17 09:00 09:00 09:00 WBC RDW 16.2 H Plt Count 148 L Neutrophils # Lymphocytes # 0.2 L ABG pH ABG pCO2 ABG pO2 ABG Total CO2 ABG O2 Saturation Potassium 3.3 L Chloride Glucose 101 H POC Glucose (mg/dL) Plasma Lactic Acid Raheem Calcium Phosphorus Magnesium AST 51 H Troponin I 0.127 H* Total Protein 5.4 L Albumin 3.2 L Urine Appearance Urine Protein Urine Blood Urine RBC Amorphous Sediment Urine Bacteria Hyaline Casts Urine Mucus 10/30/17 10/30/17 10/30/17 09:00 17:00 17:30 WBC RDW Plt Count Neutrophils # 9.0 H Lymphocytes # 0.1 L ABG pH 7.32 L ABG pCO2 50 H ABG pO2 72 L ABG Total CO2 27 H ABG O2 Saturation 93.4 L Potassium Chloride Glucose POC Glucose (mg/dL) Plasma Lactic Acid Raheem 0.6 L Calcium Phosphorus Magnesium AST Troponin I Total Protein Albumin Urine Appearance Urine Protein Urine Blood Urine RBC Amorphous Sediment Urine Bacteria Hyaline Casts Urine Mucus 10/30/17 10/30/17 10/30/17 17:30 19:00 19:34 WBC RDW Plt Count Neutrophils # Lymphocytes # ABG pH ABG pCO2 ABG pO2 ABG Total CO2 ABG O2 Saturation Potassium 2.9 L* Chloride Glucose 58 L POC Glucose (mg/dL) 61 L Plasma Lactic Acid Raheem Calcium 8.0 L Phosphorus Magnesium AST Troponin I Total Protein Albumin Urine Appearance Cloudy H Urine Protein Trace H Urine Blood Small H Urine RBC 19 H Amorphous Sediment Few H Urine Bacteria Occasional H Hyaline Casts 56 H Urine Mucus Few H 10/30/17 10/30/17 10/31/17 20:01 20:55 01:00 WBC RDW Plt Count Neutrophils # Lymphocytes # ABG pH ABG pCO2 ABG pO2 258 H ABG Total CO2 ABG O2 Saturation 99.7 H Potassium 2.5 L* Chloride Glucose POC Glucose (mg/dL) 111 H Plasma Lactic Acid Raheem Calcium Phosphorus Magnesium AST Troponin I Total Protein Albumin Urine Appearance Urine Protein Urine Blood Urine RBC Amorphous Sediment Urine Bacteria Hyaline Casts Urine Mucus 10/31/17 10/31/17 10/31/17 04:15 04:15 04:46 WBC 15.6 H RDW 15.6 H Plt Count Neutrophils # 14.8 H Lymphocytes # 0.3 L ABG pH 7.46 H ABG pCO2 31 L ABG pO2 ABG Total CO2 ABG O2 Saturation 97.8 H Potassium Chloride 110 H Glucose 105 H POC Glucose (mg/dL) Plasma Lactic Acid Raheem Calcium 7.5 L Phosphorus 2.2 L Magnesium 1.3 L AST Troponin I Total Protein Albumin Urine Appearance Urine Protein Urine Blood Urine RBC Amorphous Sediment Urine Bacteria Hyaline Casts Urine Mucus - Diagnostic Findings Chest x-ray: report reviewed, image reviewed (Chest x-ray 10/30/17 on arrival revealed dense consul ordered consolidation in right perihilar area, cardiomegaly seen along with prominent interstitium, follow-up chest x-ray to our later continued to show right lower lobe pneumonia with the old and prior compression fracture of the spine, EKG revealed regular rhythm however many artifacts are present difficult to pinpoint the P-wave but suspect likely sinus rhythm, blood culture urine culture and sputum culture have been ordered) Assessment and Plan Assessment: Severe sepsis and septic shock related related to right-sided pneumonia predominantly involving the right perihilar area and as well as the right lower lobe Suspect secondary bacterial pneumonia gram-negative and/or or his staff cannot be excluded Acute hypoxic respiratory failure related to that Chronic paroxysmal atrial fibrillation and acute on chronic diastolic heart failure Recent acute influenza B pneumonia Baseline severe COPD emphysema Plan: Continue BiPAP if patient decompensate we will intubate Gentle baseline hydration with intermittent crystalloid boluses to support blood pressure vasopressors are being started as well will keep systolic blood pressure over 90 and monitor observe for adequate perfusion as well as urine output patient will likely need a central line if continued to require levo fed with escalating dose Freeman culture including urine and blood and sputum Continuation with Tamiflu along with the IV antibiotics with vancomycin patient already has been on Rocephin and Zithromax we'll maintain for now Maintain patient on DVT and peptic ulcer disease prophylaxis Will continue and maintain on bronchodilators Continue and maintain on steroids with slow taper Fever control with IV Tylenol and Motrin/Tylenol as needed Time with Patient: Greater than 30
[2017-10-31] MEDS: ALBUTEROL NEBULIZED 2.5 MG/3 ML INHALATION PRN ×4 (08:05→19:34)
--- NOTE | 2017-10-31 08:16 | P.PN ---
Subjective Progress Note Date: 10/31/17 Principal diagnosis: Right-sided acute secondary bacterial pneumonia, influenza B pneumonia, acute hypoxic respirator failure, severe sepsis and septic shock, volume depleted and dehydrated status October 31 2017, patient seen eval examined during the rounds critical care time spent 35 minutes Care plan discussed with RN at length patient of note that continued to decompensate overnight requiring intubation postintubation chest x-ray reviewed and compared with prior x-ray dense consolidation in right midlung field and right lower lobe is noted stable ET tube cardiomegaly and is interstitial edema otherwise has been noted postintubation slight improvement in oxygenation as well as hemodynamics noted but continued to require significant amount of levo fed, patient is currently on the 12 mics of levo fed along with 40 mics of propofol and also getting IV normal saline 100 mL an hour she is sedated with propofol drip she has adequate urine output, 10 respiratory secretions are noted patient has a OG tube plantar and to initiate tube feed, patient will need a central line as well consent is being obtained, currently patient is on assist control rate of 20 tidal volume of 500, 5 of PEEP and the FiO2 is gradually being titrated from 100% to 50% urine and blood culture results are pending sputum culture are pending as well, noted rise in white cell count and leukocytosis likely multifactorial, arterial blood gases reviewed and ventilator setting has been adjusted, noted severe hypokalemia and hypomagnesemia patient is being replaced on protocol, also noted very high BNP level and mildly elevated troponin we'll monitor and observed, hypoglycemia that was noted previously has improved though Objective - Vital Signs Vital signs: Vital Signs Temp 98 F 10/31/17 04:00 Pulse 88 10/31/17 06:00 Resp 20 10/31/17 06:00 BP 66/55 10/30/17 21:00 Pulse Ox 96 10/31/17 06:00 Intake & Output 10/30/17 10/31/17 10/31/17 18:59 06:59 18:59 Intake Total 1000 2260.500 Output Total 350 1042 Balance 650 1218.500 Weight 81.647 kg 71.5 kg Intake: IV 500 1875 Potassium Chloride 10 meq 300 In Water For Injection 1 100ml.bag @ 100 mls/hr IVPB Q1H [facility] Rx#: [id number] Sodium Chloride 0.9% 1, 1200 000 ml @ 100 mls/hr IV . Q10H [facility] Rx#:[id number] Sodium Chloride 0.9% 500 500 ml @ 999 mls/hr IV .Q31M ONE Rx#:[id number] Vancomycin 1,750 mg In 375 Sodium Chloride 0.9% 250 ml @ 125 mls/hr IVPB ONCE ONE Rx#:[id number] Intake, IV Titration 500 385.500 Amount Norepinephrin 4 mg-0.9% 385.500 Ns Pmx 4 mg In 250 ml @ Titrate IV .Q0M [facility] Rx#: [id number] Sodium Chloride 0.9% 500 500 ml @ 999 mls/hr IV .Q31M ONE Rx#:[id number] Output: Urine 350 1042 Other: Voiding Method Indwelling Catheter Indwelling Catheter # Bowel Movements 0 0 ABP, PAP, CO, CI - Last Documented Arterial Blood Pressure 132/66 - Exam GENERAL: Patient is well-developed and well-nourished. Patient appears to be well- hydrated and is in mild to moderate respiratory distress on ventilator ENT: Neck is soft and supple. Neck veins are prominent but no significant JVD noted No significant lymphadenopathy is noted. Oropharynx is clear. Moist mucous membranes. EYES: The sclera were anicteric and conjunctiva were pink and moist. pupils were equal round and reactive to light. Eyelids were unremarkable. PULMONARY: Patient has Rales diffusely, with an expiratory rhonchi and crackles they're present bilaterally patient has slightly prolonged expiratory phase as well, bronchial breath sounds are predominately present on the right side posteriorly up to one third of the lung CARDIOVASCULAR: There is a regular rate and rhythm without any murmurs gallops or rubs. ABDOMEN: Soft and nontender with normal bowel sounds. No palpable organomegaly was noted. There is no palpable pulsatile mass. SKIN: Skin is clear with no lesions or rashes and otherwise unremarkable. NEUROLOGIC: Patient is sedated with propofol drip, overall neuro exam is stable no changes been noted MUSCULOSKELETAL: Normal extremities with adequate strength and full range of motion. LYMPHATICS: No significant lymphadenopathy is noted PSYCHIATRIC: No obvious distress is present from mental standpoint - Labs CBC & Chem 7: 10/31/17 04:15 10/31/17 04:15 Labs: Abnormal Lab Results - Last 24 Hours (Table) 10/30/17 10/30/17 10/30/17 Range/Units 09:00 09:00 09:00 WBC (3.8-10.6) k/uL RDW 16.2 H (11.5-15.5) % Plt Count 148 L (150-450) k/uL Neutrophils # (1.3-7.7) k/uL Lymphocytes # 0.2 L (1.0-4.8) k/uL ABG pH (7.35-7.45) ABG pCO2 (35-45) mmHg ABG pO2 (83-108) mmHg ABG Total CO2 (19-24) mmol/L ABG O2 Saturation (94-97) % Potassium 3.3 L (3.5-5.1) mmol/L Chloride (98-107) mmol/L Glucose 101 H (74-99) mg/dL POC Glucose (mg/dL) (75-99) mg/dL Plasma Lactic Acid Raheem (0.7-2.0) mmol/L Calcium (8.4-10.2) mg/dL Phosphorus (2.5-4.5) mg/dL Magnesium (1.6-2.3) mg/dL AST 51 H (14-36) U/L Troponin I 0.127 H* (0.000-0.034) ng/mL Total Protein 5.4 L (6.3-8.2) g/dL Albumin 3.2 L (3.5-5.0) g/dL Urine Appearance (Clear) Urine Protein (Negative) Urine Blood (Negative) Urine RBC (0-5) /hpf Amorphous Sediment (None) /hpf Urine Bacteria (None) /hpf Hyaline Casts (0-2) /lpf Urine Mucus (None) /hpf 10/30/17 10/30/17 10/30/17 Range/Units 09:00 17:00 17:30 WBC (3.8-10.6) k/uL RDW (11.5-15.5) % Plt Count (150-450) k/uL Neutrophils # 9.0 H (1.3-7.7) k/uL Lymphocytes # 0.1 L (1.0-4.8) k/uL ABG pH 7.32 L (7.35-7.45) ABG pCO2 50 H (35-45) mmHg ABG pO2 72 L (83-108) mmHg ABG Total CO2 27 H (19-24) mmol/L ABG O2 Saturation 93.4 L (94-97) % Potassium (3.5-5.1) mmol/L Chloride (98-107) mmol/L Glucose (74-99) mg/dL POC Glucose (mg/dL) (75-99) mg/dL Plasma Lactic Acid Raheem 0.6 L (0.7-2.0) mmol/L Calcium (8.4-10.2) mg/dL Phosphorus (2.5-4.5) mg/dL Magnesium (1.6-2.3) mg/dL AST (14-36) U/L Troponin I (0.000-0.034) ng/mL Total Protein (6.3-8.2) g/dL Albumin (3.5-5.0) g/dL Urine Appearance (Clear) Urine Protein (Negative) Urine Blood (Negative) Urine RBC (0-5) /hpf Amorphous Sediment (None) /hpf Urine Bacteria (None) /hpf Hyaline Casts (0-2) /lpf Urine Mucus (None) /hpf 10/30/17 10/30/17 10/30/17 Range/Units 17:30 19:00 19:34 WBC (3.8-10.6) k/uL RDW (11.5-15.5) % Plt Count (150-450) k/uL Neutrophils # (1.3-7.7) k/uL Lymphocytes # (1.0-4.8) k/uL ABG pH (7.35-7.45) ABG pCO2 (35-45) mmHg ABG pO2 (83-108) mmHg ABG Total CO2 (19-24) mmol/L ABG O2 Saturation (94-97) % Potassium 2.9 L* (3.5-5.1) mmol/L Chloride (98-107) mmol/L Glucose 58 L (74-99) mg/dL POC Glucose (mg/dL) 61 L (75-99) mg/dL Plasma Lactic Acid Raheem (0.7-2.0) mmol/L Calcium 8.0 L (8.4-10.2) mg/dL Phosphorus (2.5-4.5) mg/dL Magnesium (1.6-2.3) mg/dL AST (14-36) U/L Troponin I (0.000-0.034) ng/mL Total Protein (6.3-8.2) g/dL Albumin (3.5-5.0) g/dL Urine Appearance Cloudy H (Clear) Urine Protein Trace H (Negative) Urine Blood Small H (Negative) Urine RBC 19 H (0-5) /hpf Amorphous Sediment Few H (None) /hpf Urine Bacteria Occasional H (None) /hpf Hyaline Casts 56 H (0-2) /lpf Urine Mucus Few H (None) /hpf 10/30/17 10/30/17 10/31/17 Range/Units 20:01 20:55 01:00 WBC (3.8-10.6) k/uL RDW (11.5-15.5) % Plt Count (150-450) k/uL Neutrophils # (1.3-7.7) k/uL Lymphocytes # (1.0-4.8) k/uL ABG pH (7.35-7.45) ABG pCO2 (35-45) mmHg ABG pO2 258 H (83-108) mmHg ABG Total CO2 (19-24) mmol/L ABG O2 Saturation 99.7 H (94-97) % Potassium 2.5 L* (3.5-5.1) mmol/L Chloride (98-107) mmol/L Glucose (74-99) mg/dL POC Glucose (mg/dL) 111 H (75-99) mg/dL Plasma Lactic Acid Raheem (0.7-2.0) mmol/L Calcium (8.4-10.2) mg/dL Phosphorus (2.5-4.5) mg/dL Magnesium (1.6-2.3) mg/dL AST (14-36) U/L Troponin I (0.000-0.034) ng/mL Total Protein (6.3-8.2) g/dL Albumin (3.5-5.0) g/dL Urine Appearance (Clear) Urine Protein (Negative) Urine Blood (Negative) Urine RBC (0-5) /hpf Amorphous Sediment (None) /hpf Urine Bacteria (None) /hpf Hyaline Casts (0-2) /lpf Urine Mucus (None) /hpf 10/31/17 10/31/17 10/31/17 Range/Units 04:15 04:15 04:46 WBC 15.6 H (3.8-10.6) k/uL RDW 15.6 H (11.5-15.5) % Plt Count (150-450) k/uL Neutrophils # 14.8 H (1.3-7.7) k/uL Lymphocytes # 0.3 L (1.0-4.8) k/uL ABG pH 7.46 H (7.35-7.45) ABG pCO2 31 L (35-45) mmHg ABG pO2 (83-108) mmHg ABG Total CO2 (19-24) mmol/L ABG O2 Saturation 97.8 H (94-97) % Potassium (3.5-5.1) mmol/L Chloride 110 H (98-107) mmol/L Glucose 105 H (74-99) mg/dL POC Glucose (mg/dL) (75-99) mg/dL Plasma Lactic Acid Raheem (0.7-2.0) mmol/L Calcium 7.5 L (8.4-10.2) mg/dL Phosphorus 2.2 L (2.5-4.5) mg/dL Magnesium 1.3 L (1.6-2.3) mg/dL AST (14-36) U/L Troponin I (0.000-0.034) ng/mL Total Protein (6.3-8.2) g/dL Albumin (3.5-5.0) g/dL Urine Appearance (Clear) Urine Protein (Negative) Urine Blood (Negative) Urine RBC (0-5) /hpf Amorphous Sediment (None) /hpf Urine Bacteria (None) /hpf Hyaline Casts (0-2) /lpf Urine Mucus (None) /hpf Microbiology - Last 24 Hours (Table) 10/30/17 20:55 Sputum Culture - Preliminary Sputum Assessment and Plan Assessment: Severe sepsis and septic shock related related to right-sided pneumonia predominantly involving the right perihilar area and as well as the right lower lobe Suspect secondary bacterial pneumonia gram-negative and/or or Staph cannot be excluded Acute hypoxic respiratory failure related to that Chronic paroxysmal atrial fibrillation and acute on chronic diastolic heart failure Recent acute influenza B pneumonia Baseline severe COPD emphysema Hypokalemia, hypomagnesemia, hypoglycemia Plan: Continue ventilator support with adjustment as indicated above Gentle baseline hydration with intermittent crystalloid boluses to support blood pressure vasopressors as well will keep systolic blood pressure over 90 and monitor observe for adequate perfusion as well as urine output patient will likely need a central line if continued to require levofed with escalating dose Freeman culture including urine and blood and sputum Continuation with Tamiflu along with the IV antibiotics with vancomycin patient already has been on Rocephin and Zithromax we'll maintain for now Maintain patient on DVT and peptic ulcer disease prophylaxis Will continue and maintain on bronchodilators Continue and maintain on steroids with slow taper Fever control with IV Tylenol and Motrin/Tylenol as needed Replacement of electrolytes Nutritional support with tube feed Time with Patient: Greater than 30
[2017-10-31] MEDS: PANTOPRAZOLE 40 MG/10 ML VIAL IV SCH (08:19)
[2017-10-31] MEDS: OSELTAMIVIR 60 MG/10 ML ORAL SYRINGE PO SCH ×2 (08:19→17:50)
[2017-10-31] MEDS: HEPARIN SODIUM,PORCINE 5,000 UNIT/ML 1 ML VIAL SQ SCH ×2 (08:19→16:06)
[2017-10-31] MEDS: CHLORHEXIDINE GLUCONATE 15 ML CUP MUCOUS MEM SCH ×2 (08:19→20:18)
[2017-10-31] MEDS: MAGNESIUM SULFATE-D5W PMX 1 GM in DEXTROSE/WATER 1 100ML.BAG IVPB SCH ×3 (08:22→10:18)
--- NOTE | 2017-10-31 09:41 | P.PCN ---
Date of Procedure: 10/31/17 Preoperative Diagnosis: Severe sepsis septic shock, right-sided secondary bacterial pneumonia, influenza B pneumonia Postoperative Diagnosis: As above Procedure(s) Performed: Right-sided triple-lumen catheter placement and internal jugular via anterior approach Anesthesia: local Surgeon: Abel Nunez Estimated Blood Loss (ml): 2 Condition: critical Disposition: ICU Indications for Procedure: As above Operative Findings: As below Description of Procedure: Patient prepared and draped in the usual fashion, informed consent obtained from the patient's family, lidocaine was used to infiltrate the area in anterior lateral part of the sternocleidomastoid muscle, gauge 24 needle was utilized to locate the internal jugular vein able to access the internal jugular vein via anterior approach guidewire was placed needle was withdrawn catheter was passed over the guidewire all 3 ports are flushed patient tolerated procedure well no complication noted chest x-ray pending
--- NOTE | 2017-10-31 09:54 | XR ---
EXAMINATION TYPE: XR chest 1V portable DATE OF EXAM: 10/31/2017 HISTORY: central line placement. REFERENCE: Previous study dated earlier today.. FINDINGS: The patient is ET tube has been advanced and is now only 1 cm from the franco and should be withdrawn slightly. An NG tube remains in place. A right internal jugular catheter is been placed. I ts tip is in the superior vena cava. There continues to be right perihilar infiltrate. This appears slightly worse. There is a developing right lower lobe infiltrate. There is left basilar airspace disease. I suspect bilateral effusions. IMPRESSION: 1. WORSENING BILATERAL AIRSPACE DISEASE. 2. SMALL, BILATERAL EFFUSIONS. 3. LOW-LYING ET TUBE.
[2017-10-31] MEDS: cefTRIAXone IN SWFI 1,000 MG/10 ML SYRINGE IVP SCH (12:14)
[2017-10-31] MEDS: AZITHROMYCIN 500 MG in SODIUM CHLORIDE 0.9% 250 ML IVPB SCH (12:53)
[2017-10-31] MEDS ORDERED: DILTIAZEM 125 MG in SODIUM CHLORIDE 0.9% 100 ML IV SCH (18:00)
[2017-10-31] MEDS ORDERED: DEXTROSE 5% IN WATER 100 ML with AMIODARONE 150 MG IV ONE (18:06)
[2017-10-31] MEDS: AMIODARONE 450 MG in DEXTROSE 5% IN WATER 250 ML IV SCH ×2 (18:24)
[2017-10-31] MEDS: NOREPINEPHRIN 16 MG-0.9%NS PMX 16 MG/250 ML ML IV SCH (22:16)
[2017-11-01] MEDS: HEPARIN SODIUM,PORCINE 5,000 UNIT/ML 1 ML VIAL SQ SCH ×4 (00:40→23:28)
[2017-11-01] MEDS: PROPOFOL 1,000 MG in EMPTY BAG 1 BAG IV SCH ×5 (00:40→16:04)
[2017-11-01] MEDS: SODIUM CHLORIDE 0.9% 1,000 ML IV SCH ×3 (00:40→20:30)
[2017-11-01] MEDS: AMIODARONE 450 MG in DEXTROSE 5% IN WATER 250 ML IV SCH ×6 (03:26→17:28)
[2017-11-01 04:46] LABS: Anisocytosis Slight; Basophils % (A) 0 %; Eosinophils # (A) 0.3 k/uL (0-0.7); Eosinophils % (A) 3 %; HGB 12.4 gm/dL (11.4-16.0); Lymphocytes # (A) 0.5 k/uL (1.0-4.8); Lymphocytes % (A) 4 %; MCH 29.2 pg (25.0-35.0); MCHC 33.4 g/dL (31.0-37.0); MCV 87.4 fL (80.0-100.0); Mean Platelet Volume 8.9; Monocytes # (A) 0.3 k/uL (0-1.0); Monocytes % (A) 2 %; Neutrophils # (A) 10.8 k/uL (1.3-7.7); Neutrophils % (A) 90 %; Platelet Count 129 k/uL (150-450); RBC 4.24 m/uL (3.80-5.40); RDW 16.5 % (11.5-15.5)
[2017-11-01] MEDS ORDERED: VANCOMYCIN TROUGH DUE 1 EACH MISC MISCELLANE ONE (05:00)
[2017-11-01 05:11] LABS: Anion Gap 6 mmol/L; Blood Urea Nitrogen 11 mg/dL (7-17); Calcium 7.6 mg/dL (8.4-10.2); Carbon Dioxide 23 mmol/L (22-30); Chloride 116 mmol/L (98-107); Glucose 142 mg/dL (74-99); Phosphorus 1.6 mg/dL (2.5-4.5); Sodium 145 mmol/L (137-145)
[2017-11-01 05:32] LABS: Potassium 3.5 mmol/L (3.5-5.1)
[2017-11-01 05:56] LABS: ABG Base Excess -3.2 mmol/L; ABG HCO3 22 mmol/L (21-25); ABG Oxygen Saturation 98.6 % (94-97); ABG PCO2 34 mmHg (35-45); ABG PH 7.41 (7.35-7.45); ABG PO2 117 mmHg (83-108); ABG TCO2 23 mmol/L (19-24)
--- NOTE | 2017-11-01 06:31 | PN ---
PROGRESS NOTE DATE OF SERVICE: 10/31/17. PRESENTING COMPLAINT: Short of breath. INTERVAL HISTORY: This is a patient who was admitted with acute influenza B pneumonitis, metabolic encephalopathy went into respiratory distress and had to be moved to the ICU and had to be intubated. The patient is currently on the ventilator with FiO2 40% and PEEP of 5. Levophed is at 50 mcg and Diprivan at 50 mcg. Tube feeding started at 20 mL an hour. The patient is having some dominguez secretions yesterday evening, decreasing today. The patient again went back into atrial fibrillation. REVIEW OF SYSTEMS: Patient is intubated. CURRENT MEDICATIONS: Reviewed that include IV amiodarone, IV azithromycin, IV ceftriaxone, IV Levophed, Tamiflu, Protonix, IV propofol, IV vancomycin. EXAMINATION: T-max 101.1, pulse 136, respiratory 20, blood pressure 105/58, pulse ox 98% on the ventilator. GENERAL APPEARANCE: Lying in bed, intubated. EYES: Pupils equal. Conjunctivae normal. HEENT: Endotracheal tube in place. Oral cavity dry. NECK: JVD unable to assess. Mass not palpable. RESPIRATORY: Effort increased. LUNGS: Diminished breath sounds. CARDIOVASCULAR: Heart sounds irregular. No edema. ABDOMEN: Soft, nontender. Liver and spleen not palpable. PSYCHIATRY: Unable to assess. NEUROLOGICAL: Pupils equal, reactive. INVESTIGATIONS: White count 15.6, hemoglobin 12.9. Blood gas showed pH of 7.46, potassium 4.1, BUN and creatinine are normal. Chest x-ray: bilateral airspace disease. ASSESSMENT: 1. Bilateral pneumonia suspect gram-negative organism in addition to acute influenza B pneumonitis causing acute hypoxic respiratory failure and sepsis leading to being on the ventilator support. 2. Acute metabolic encephalopathy with acute delirium present on admission. 3. Atrial flutter fibrillation, paroxysmal, with a recent cardioversion. The had patient had been on Eliquis. 4. Essential hypertension history of. 5. Septic shock. Patient has been on Levophed. 6. Hyperlipidemia. 7. Chronic medical debility. Patient uses mechanical lift at the baseline for transfers. 8. Acute chronic obstructive pulmonary disease exacerbation in an ex-smoker. 9. Chronic T9-T10 vertebral body fracture, likely from osteoporosis. 10.Chronic restless leg syndrome. 11.Chronic insomnia. 12.Right rotator cuff tear. PLAN: Prognosis is guarded. Continue current medication and treatment plan including pressure support, fluids, ventilator, IV heparin. Cardiology and Pulmonary following. Prognosis not good. MMODL / IJN: [id number] /
--- NOTE | 2017-11-01 06:31 | XR ---
EXAMINATION TYPE: XR chest 1V portable DATE OF EXAM: 11/01/2017 HISTORY: Tube placement. REFERENCE: Previous study dated 10/31/2017. FINDINGS: Patient's ET tube and NG tube remain in place. ET tube's tip is 1.9 cm from the franco. There is continuing right-sided infiltrate. This has worsened slightly. There is a left basilar infil trate. I suspect small effusions. Heart size upper limits of normal. IMPRESSION: WORSENING BILATERAL INFILTRATES.
[2017-11-01] MEDS: POTASSIUM PHOSPHATE 10 MMOL in SODIUM CHLORIDE 0.9% 250 ML IV SCH ×2 (06:39→08:32)
[2017-11-01] MEDS: VANCOMYCIN 1,500 MG in SODIUM CHLORIDE 0.9% 250 ML IVPB SCH ×2 (06:41→23:28)
[2017-11-01] MEDS: POTASSIUM CHLORIDE ORAL LIQUID 40 MEQ/30 ML CUP NG-TUBE SCH ×2 (06:59→08:16)
[2017-11-01] MEDS: OSELTAMIVIR 60 MG/10 ML ORAL SYRINGE PO SCH ×2 (08:21→18:35)
[2017-11-01] MEDS: CHLORHEXIDINE GLUCONATE 15 ML CUP MUCOUS MEM SCH ×2 (08:21→20:30)
[2017-11-01] MEDS: PANTOPRAZOLE 40 MG/10 ML VIAL IV SCH (08:21)
--- NOTE | 2017-11-01 11:08 | P.CRDCN ---
History of Present Illness Consult date: 11/01/17 History of present illness: This is a 72-year-old female with history of persistent atrial fibrillation who had a cardioversion recently by Dr. Hamilton and has been maintained on amiodarone and also beta myra. She was also on Eliquis. Patient was in the hospital in October with pneumonia. Patient is readmitted now to the hospital with pneumonia and H. influenzae and respiratory failure. Patient has required intubation and sedation. We're asked to see the patient because of atrial fibrillation with a rapid ventricular response. Patient echocardiogram during last admission showed normal LV function. Her chest x-ray shows mostly pneumonia without any evidence of CHF. . Pro BNP is mildly elevated. Patient was started on IV amiodarone last night, however heart rate is not well controlled. Patient is also hypotensive and on Levophed. I'm going to add Lanoxin 0.25 mg twice daily today at 6 hour interval. Rest of the management as for the pulmonology. Review of Systems Not obtained Past Medical History Past Medical History: Atrial Fibrillation, Asthma, Heart Failure, COPD, GERD/ Reflux, Hyperlipidemia, Hypertension, Thyroid Disorder Additional Past Medical History / Comment(s): Past pneumonia, t9-t10 vertebral fractures with gait dysfunction-mechanically lifted to wheelchair, UTI 08/2017, anemia, insomnia, RLS, osteoporosis, hypothyroid, incontinence bladder/bowel, past cellulitis L lower leg, current skin tear L elbow, current torn R rotator cuff. History of Any Multi-Drug Resistant Organisms: None Reported Past Surgical History: Appendectomy, Cholecystectomy, Orthopedic Surgery, Tonsillectomy, Tubal Ligation Additional Past Surgical History / Comment(s): right shoulder rotator cuff repair, bilateral knee replacements, colonoscopy. Past Anesthesia/Blood Transfusion Reactions: No Reported Reaction Past Psychological History: Anxiety, Depression, Panic Disorder Additional Psychological History / Comment(s): Pt resides at [facility]. She is a mechanical lift to wheelchair. She feeds herself. She needs assist with other ADLs. Smoking Status: Former smoker Past Alcohol Use History: None Reported Additional Past Alcohol Use History / Comment(s): Pt started smoking as a teenager and quit in 1996. She was a ppd smoker. Past Drug Use History: None Reported - Past Family History Mother Family Medical History: COPD Additional Family Medical History / Comment(s): emphysema Father Family Medical History: CVA/TIA Medications and Allergies Home Medications Medication Instructions Recorded Confirmed Type Albuterol Inhaler [Ventolin Hfa 2 puff INHALATION RT-QID PRN 04/13/16 10/30/17 History Inhaler] Atorvastatin [Lipitor] 20 mg PO HS 04/13/16 10/30/17 History Calcium Carbonate [Tums] 500 mg PO TID PRN 04/13/16 10/30/17 History Fluticasone/Salmeterol [Advair 1 puff INHALATION RT-BID@0800,2100 04/13/1610/30 History 500-50 Diskus] Sertraline HCl [Zoloft] 100 mg PO DAILY@0800 04/13/16 10/30/17 History rOPINIRole HCL [Requip] 0.5 mg PO HS@199904/13/16 10/30/17 History Furosemide [Lasix] 40 mg PO BID@0600,1400 06/02/16 10/30/17 History Famotidine 20 mg PO DAILY@0800 03/16/17 10/30/17 History Ipratropium-Albuterol Nebulize 3 ml INHALATION RT-TID PRN 03/16/17 10/30/17 History [Duoneb 0.5 mg-3 mg/3 ml Soln] guaiFENesin [Mucinex] 600 mg PO BID@0600,2100 03/16/17 10/30/17 History Bisacodyl [Dulcolax] 10 mg RECTAL DAILY PRN 10/09/17 10/30/17 History Levothyroxine Sodium [Synthroid] 125 mcg PO DAILY@0600 10/09/17 10/30/17 History Magnesium Hydroxide [Milk of 2,400 mg PO DAILY PRN 10/09/17 10/30/17 History Magnesia] Melatonin 5 mg PO HS 10/09/17 10/30/17 History Multivitamins, Thera [Multivitamin 1 tab PO DAILY@1700 10/09/17 10/30/17 History (formulary)] Na Phos,M-B/Na Phos,Di-Ba [Fleet 133 ml RECTAL ONCE PRN 10/09/17 10/30/17 History Adult] Potassium Chloride ER [K-Dur 20] 20 meq PO DAILY 10/09/17 10/30/17 History Rivaroxaban [Xarelto] 15 mg PO DAILY@1700 10/09/17 10/30/17 History Sennosides-Docusate Sodium 2 tab PO HS PRN 10/09/17 10/30/17 History [Senokot-S] ALPRAZolam [Xanax] 0.25 mg PO TID PRN #30 tablet 10/17/17 10/30/17 Rx Amiodarone [Cordarone] 200 mg PO BID #60 tab 10/17/17 10/30/17 Rx Temazepam [Restoril] 15 mg PO HS #30 cap 10/17/17 10/30/17 Rx Ensure Complete 1 can PO DAILY 10/30/17 10/30/17 History HYDROcodone/APAP 7.5-325MG [[place] 1 tab PO Q6H PRN 10/30/17 10/30/17 History 7.5-325] Metoprolol Tartrate [Lopressor] 50 mg PO BID@0800,2100 10/30/17 10/30/17 History Oseltamivir Phosphate [Tamiflu] 30 mg PO BID@0800,1800 10/30/17 10/30/17 History Allergies Allergy/AdvReac Type Severity Reaction Status Date / Time codeine Allergy Unknown Verified 10/30/17 08:44 methylprednisolone Allergy Unknown Verified 10/30/17 08:44 [From Medrol] Penicillins Allergy Unknown Verified 10/30/17 08:44 pentazocine Allergy Unknown Verified 10/30/17 08:44 hydromorphone HCl AdvReac Hallucinati Verified 10/30/17 08:44 [From Dilaudid] ons Physical Exam Vitals: Vital Signs Temp Pulse Resp BP Pulse Ox 11/01/17 10:30 153 H 20 126/84 98 11/01/17 10:00 144 H 20 120/65 98 11/01/17 09:30 147 H 20 93/66 98 11/01/17 09:00 143 H 20 130/80 97 11/01/17 08:30 123 H 20 98 11/01/17 08:00 98.7 F 126 H 20 98 11/01/17 07:30 116 H 20 98 11/01/17 07:00 138 H 20 98 11/01/17 06:30 153 H 23 97 11/01/17 06:00 135 H 20 98 11/01/17 05:30 129 H 20 97 02 05:00 134 H 20 97 11/01/17 04:30 154 H 20 97 11/01/17 04:00 99.4 F 143 H 20 97 02 03:30 139 H 20 98 02 03:24 20 02 03:00 150 H 20 96 11/01/17 02:30 147 H 20 97 11/01/17 02:00 137 H 20 97 11/01/17 01:30 138 H 20 97 11/01/17 01:00 131 H 20 97 11/01/17 00:30 138 H 20 97 11/01/17 00:00 99 F 140 H 20 97 10/31/17 23:30 151 H 20 97 10/31/17 23:12 20 03 23:00 141 H 20 97 10/31/17 22:30 154 H 20 96 10/31/17 22:00 158 H 20 97 10/31/17 21:30 137 H 20 97 10/31/17 21:00 174 H 20 96 10/31/17 20:30 159 H 20 96 10/31/17 20:03 153 H 03/18 20:00 99.4 F 136 H 20 98 10/31/17 19:35 139 H 10/31/17 19:30 150 H 20 98 10/31/17 19:00 131 H 20 96 10/31/17 18:45 139 H 20 97 18 18:30 152 H 20 95 10/31/17 18:15 177 H 20 94 L 10/31/17 18:00 99.8 F H 175 H 20 95 0318 17:30 146 H 20 95 18 17:00 88 20 96 03/18 16:30 90 20 95 10/31/18 16:00 101.1 F H 72 18 96 18 15:59 86 /18 15:45 88 /03/18 15:30 100.1 F H 86 19 95 10/31/18 15:00 100.8 F H 87 19 96 10/31/18 14:30 86 19 96 020318 14:00 86 20 96 18 13:30 84 20 95 10/31/17 13:00 85 20 95 10/31/17 12:30 88 21 96 10/31/17 12:00 100.6 F H 84 20 95 10/31/17 11:33 93 10/31/17 11:30 84 20 98 10/31/17 11:22 84 Intake and Output 10/31/17 11/01/17 11/01/17 22:59 06:59 14:59 Intake Total 2234.800 1646.192 740.162 Output Total 400 490 165 Balance 1189.644 9027.192 575.162 Intake: IV 1050 900 309 0.9 for pressure 9 Sodium Chloride 0.9% 1, 800 900 300 000 ml @ 100 mls/hr IV . Q10H [facility] Rx#:[id number] Vancomycin 1,750 mg In 250 Sodium Chloride 0.9% 250 ml @ 125 mls/hr IVPB ONCE ONE Rx#:[id number] Intake, IV Titration 934.800 406.192 281.162 Amount ACETAMINOPHEN IV (For NPO 100 ) 1,000 mg In Empty Bag 1 bag @ 400 mls/hr IVPB Q6HR PRN Rx#:[id number] Amiodarone 450 mg In 33.3 259.000 Dextrose 5% in Water 250 ml @ 1 MG/MIN 34.53 mls/ hr IV .Q7H31M [facility] Rx#: [id number] Dextrose 5% in Water 100 100 ml @ 618 mls/hr IV .Q10M ONE with Amiodarone 150 mg Rx#:[id number] Ibuprofen IV 800 mg In 250 Sodium Chloride 0.9% 250 ml @ 500 mls/hr IV Q6HR PRN Rx#:[id number] Norepinephrin 16 mg-0.9% 181.162 Ns Pmx 16 mg In 250 ml @ Titrate IV .Q0M [facility] Rx#: [id number] Norepinephrin 4 mg-0.9% 341.500 Ns Pmx 4 mg In 250 ml @ Titrate IV .Q0M [facility] Rx#: [id number] Propofol 1,000 mg In 110 147.192 100 Empty Bag 1 bag @ Titrate IV .Q0M [facility] Rx#: [id number] Tube Feeding 160 280 120 Other 90 60 30 Output: Urine 400 490 165 Other: Voiding Method Indwelling Catheter Indwelling Catheter Indwelling Catheter Weight 80.5 kg ABP, PAP, CO, CI - Last 8 Hours Arterial Blood Pressure 90/90 Arterial Blood Pressure 95/88 Arterial Blood Pressure 95/79 Arterial Blood Pressure 76/47 Arterial Blood Pressure 153/84 Arterial Blood Pressure 122/69 Arterial Blood Pressure 133/75 Arterial Blood Pressure 140/79 Arterial Blood Pressure 132/14 Arterial Blood Pressure 153/83 Arterial Blood Pressure 146/80 Arterial Blood Pressure 139/80 Arterial Blood Pressure 149/71 Arterial Blood Pressure 136/80 Arterial Blood Pressure 129/75 GENERAL EXAM: Patient is intubated and sedated HEENT: Normocephalic. Normal reaction of pupils, equal size, normal range of extraocular motion. No erythema or exudates in the throat. NECK: No masses, no nuchal rigidity. CHEST: No chest wall deformity. LUNGS: Diminished breath sounds. Rales on the right side. HEART: S1 and S2 normal. Irregular heart rhythm ABDOMEN: No hepatosplenomegaly, normal bowel sounds, no guarding or rigidity. SKIN: No rashes CENTRAL NERVOUS SYSTEM: Deferred EXTREMITIES: No cyanosis, clubbing or edema. Results 11/01/17 04:43 11/01/17 04:43 CBC 11/01/17 Range/Units 04:43 WBC 12.0 H (3.8-10.6) k/uL RBC 4.24 (3.80-5.40) m/uL Hgb 12.4 (11.4-16.0) gm/dL Hct 37.0 (34.0-46.0) % Plt Count 129 L (150-450) k/uL Comprehensive Metabolic Panel 10/31/17 11/01/17 Range/Units 16:50 04:43 Sodium 145 (137-145) mmol/L Potassium 3.1 L 3.5 (3.5-5.1) mmol/L Chloride 116 H (98-107) mmol/L Carbon Dioxide 23 (22-30) mmol/L BUN 11 (7-17) mg/dL Creatinine 0.60 (0.52-1.04) mg/dL Glucose 142 H (74-99) mg/dL Calcium 7.6 L (8.4-10.2) mg/dL Current Medications Generic Name Dose Route Start Last Admin Trade Name Freq PRN Reason Stop Dose Admin Albuterol Sulfate 2.5 mg 10/30/17 11:00 10/31/17 19:34 Ventolin Nebulized INHALATION 2.5 mg RT-Q4H PRN Administration Shortness Of Breath Or Wheezing Ceftriaxone Sodium 1,000 mg 10/31/17 12:00 10/31/17 12:14 Rocephin IVP 1,000 mg Q24H [facility]ONI Administration Chlorhexidine Gluconate 15 ml 10/31/17 09:00 11/01/17 08:21 Peridex MUCOUS MEM 15 ml BID [facility]ONI Administration Heparin Sodium (Porcine) 5,000 unit 10/31/17 00:00 11/01/17 08:22 Heparin SQ 5,000 unit Q8HR [facility]ONI Administration Azithromycin 500 mg/ Sodium 250 mls @ 125 mls/hr 10/30/17 13:00 10/31/17 12: 53 Chloride IVPB 125 mls/hr Q24H [facility]ONI Administration Sodium Chloride 1,000 mls @ 100 mls/hr 10/30/17 18:30 11/01/17 00:40 Saline 0.9% IV 100 mls/hr .Q10H [facility]ONI Administration Ibuprofen 800 mg/ Sodium 258 mls @ 500 mls/hr 10/30/17 19:23 10/31/17 17:02 Chloride IV 500 mls/hr Q6HR PRN Administration Fever Propofol 1,000 mg/ IV Solution 100 mls @ 0 mls/hr 10/30/17 23:00 11/01/17 08: 24 IV 45.54 mcg/kg/min .Q0M [facility]ONI 22 mls/hr Protocol Administration Titrate Amiodarone HCl 450 mg/ 259 mls @ 34.53 mls/hr 10/31/17 18:15 11/01/17 03:26 Dextrose/Water IV 11/01/17 18:06 0.5 mg/min .Q7H31M [facility] 17.26 mls/hr Protocol Administration 1 MG/MIN Norepinephrine Bitartrate 16 mg in 250 mls @ 0 mls/hr 10/31/17 21:15 09:38 Levophed-0.9% Nacl 16 Mg/250ml Pmx IV 14.5 mcg/min .Q0M [facility]ONI 13.594 mls/hr Protocol Titration Titrate Vancomycin HCl 1,500 mg/ 250 mls @ 125 mls/hr 11/02/17 00:00 Sodium Chloride IVPB Q16H [facility]I Miscellaneous Information 1 each 10/30/17 11:00 Pneumonia Protocol Utilized PO ONCE PRN Per Protocol Miscellaneous Information 1 each 10/30/17 18:22 Potassium Per Protocol MISCELLANE DAILY PRN Per Protocol Protocol Miscellaneous Information 1 each 10/31/17 05:26 Magnesium Per Protocol MISCELLANE DAILY PRN Per Protocol Protocol Miscellaneous Information 1 each 10/31/17 05:25 Phosphorus Per Protocol MISCELLANE DAILY PRN Per Protocol Protocol Oseltamivir Phosphate 30 mg 10/30/17 18:00 11/01/17 08:21 Tamiflu PO 11/08/17 18:01 30 mg BID@0800,1800 [facility]ONI Administration Pantoprazole Sodium 40 mg 10/31/17 09:00 11/01/17 08:21 Protonix IV 40 mg DAILY [facility]ONI Administration Intake and Output 10/31/17 11/01/17 11/01/17 22:59 06:59 14:59 Intake Total 2234.800 1646.192 740.162 Output Total 400 490 165 Balance 1739.024 6110.192 575.162 Intake: IV 1050 900 309 0.9 for pressure 9 Sodium Chloride 0.9% 1, 800 900 300 000 ml @ 100 mls/hr IV . Q10H [facility] Rx#:[id number] Vancomycin 1,750 mg In 250 Sodium Chloride 0.9% 250 ml @ 125 mls/hr IVPB ONCE ONE Rx#:[id number] Intake, IV Titration 934.800 406.192 281.162 Amount ACETAMINOPHEN IV (For NPO 100 ) 1,000 mg In Empty Bag 1 bag @ 400 mls/hr IVPB Q6HR PRN Rx#:[id number] Amiodarone 450 mg In 33.3 259.000 Dextrose 5% in Water 250 ml @ 1 MG/MIN 34.53 mls/ hr IV .Q7H31M [facility] Rx#: [id number] Dextrose 5% in Water 100 100 ml @ 618 mls/hr IV .Q10M ONE with Amiodarone 150 mg Rx#:[id number] Ibuprofen IV 800 mg In 250 Sodium Chloride 0.9% 250 ml @ 500 mls/hr IV Q6HR PRN Rx#:[id number] Norepinephrin 16 mg-0.9% 181.162 Ns Pmx 16 mg In 250 ml @ Titrate IV .Q0M [facility] Rx#: [id number] Norepinephrin 4 mg-0.9% 341.500 Ns Pmx 4 mg In 250 ml @ Titrate IV .Q0M [facility] Rx#: [id number] Propofol 1,000 mg In 110 147.192 100 Empty Bag 1 bag @ Titrate IV .Q0M [facility] Rx#: [id number] Tube Feeding 160 280 120 Other 90 60 30 Output: Urine 400 490 165 Other: Voiding Method Indwelling Catheter Indwelling Catheter Indwelling Catheter Weight 80.5 kg 11/01/17 04:43 11/01/17 04:43 EKG Interpretations (text) Atrial fibrillation with rapid ventricular response Assessment and Plan (1) Influenza B Current Visit: Yes Status: Acute Code(s): J10.1 - FLU DUE TO OTH IDENT INFLUENZA VIRUS W OTH RESP MANIFEST SNOMED Code(s): 76997910 (2) Pneumonia Current Visit: Yes Status: Acute Code(s): J18.9 - PNEUMONIA, UNSPECIFIED ORGANISM SNOMED Code(s): 498064747 (3) Atrial fibrillation with RVR Current Visit: No Status: Acute Code(s): I48.91 - UNSPECIFIED ATRIAL FIBRILLATION SNOMED Code(s): 187076537408743 (4) COPD (chronic obstructive pulmonary disease) Current Visit: No Status: Acute Code(s): J44.9 - CHRONIC OBSTRUCTIVE PULMONARY DISEASE, UNSPECIFIED SNOMED Code(s): 58090912 Plan: We'll continue IV amiodarone. I will add Lanoxin IV. Beta myra was initiated when the blood pressure is stable. Echo done recently showed good LV function. Further recommendations depend upon clinical course
[2017-11-01] MEDS: DIGOXIN 250 MCG/ML 2 ML AMP IVP SCH ×2 (11:45→17:37)
[2017-11-01] MEDS: cefTRIAXone IN SWFI 1,000 MG/10 ML SYRINGE IVP SCH (11:45)
[2017-11-01] MEDS: AZITHROMYCIN 500 MG in SODIUM CHLORIDE 0.9% 250 ML IVPB SCH (13:41)
[2017-11-01] MEDS: NOREPINEPHRIN 16 MG-0.9%NS PMX 16 MG/250 ML ML IV SCH (16:05)
[2017-11-01] MEDS: AMIODARONE 200 MG TAB PO SCH (20:30)
--- NOTE | 2017-11-01 22:52 | PN ---
PROGRESS NOTE DATE OF SERVICE: 11/01/17. PRESENTING COMPLAINT: Short of breath. INTERVAL HISTORY: This is a patient who was initially admitted with acute influenza B pneumonitis metabolic encephalopathy, went into respiratory distress and had to be was in ICU and intubated. The patient remains on the ventilator with FiO2 40 and a PEEP of 5. Also went into atrial fibrillation rate of 140s. Put On IV amiodarone per Cardiology and given digoxin. The patient is also on Diprivan. The patient also tube feeding daily at goal. Had some secretions through the trach. REVIEW OF SYSTEMS: Patient is intubated. CURRENT MEDICATIONS: Reviewed that include: IV Cordarone earlier, IV azithromycin, IV ceftriaxone, IV heparin, Levophed, Tamiflu, Protonix, IV vancomycin. PHYSICAL EXAMINATION: On examination: T-max 101.1, pulse 130, respirations 19, blood pressure 116/70, pulse ox 98% on ventilator. GENERAL: Lying in bed, intubated. Eyes: Pupils equal. Conjunctivae normal. HEENT: External appearance of nose and ears normal. HEENT: Endotracheal tube in place. Neck JVD unable to assess. Mass not palpable. Respiratory effort normal. LUNGS: Diminished breath sounds. Cardiovascular: HEART: Sounds irregular. No edema. ABDOMEN: Soft, nontender. Liver and spleen not palpable. Pupils are equal, reactive. INVESTIGATIONS: White count 12, hemoglobin 12.4, blood gas showed a pH of 7.4, potassium 3.5. BUN and creatinine is normal. Chest x-ray, worsening bilateral infiltrates. Patient's sputum is growing some Staph aureus. ASSESSMENT: 1. Bilateral pneumonia suspect gram-negative organism in addition takes influenza B pneumonitis causing acute hypoxic respiratory failure and sepsis leading to being on the ventilator support with no improvement. 2. Acute metabolic encephalopathy with acute delirium present on admission. 3. Atrial flutter fibrillation currently with rapid ventricular rate. Patient did have recent cardioversion. 4. Essential hypertension-history of. 5. Septic shock. Patient continues to be on Levophed. 6. Hyperlipidemia. 7. Chronic medical debility, patient uses mechanical lift at the baseline for transfer. 8. Acute chronic obstructive pulmonary disease exacerbation in an ex-smoker. 9. Chronic T9-T10 vertebral body fractures, likely from osteoporosis. 10.Chronic restless leg syndrome. 11.Chronic insomnia. 12.Right rotator cuff tear. PLAN: Prognosis remains not too good. Continue current medication and treatment plan including IV antibiotics, pressure support, tube feeding, ventilator support. Care was discussed with the daughter at the bedside who is also the DPOA. She does understand the grave prognosis. At this point will just take it day-by-day and see how the patient fares. ELIO / DASH: [id number] /
[2017-11-02 05:18] LABS: Anisocytosis Slight; Basophils % (A) 0 %; Eosinophils # (A) 0.7 k/uL (0-0.7); Eosinophils % (A) 7 %; HCT 35.8 % (34.0-46.0); HGB 11.7 gm/dL (11.4-16.0); Hypochromasia Slight; Lymphocytes # (A) 0.5 k/uL (1.0-4.8); Lymphocytes % (A) 5 %; MCH 29.4 pg (25.0-35.0); MCHC 32.6 g/dL (31.0-37.0); MCV 90.2 fL (80.0-100.0); Mean Platelet Volume 9.3; Monocytes # (A) 0.4 k/uL (0-1.0); Monocytes % (A) 4 %; Neutrophils # (A) 8.2 k/uL (1.3-7.7); Neutrophils % (A) 82 %; Platelet Count 119 k/uL (150-450); RBC 3.97 m/uL (3.80-5.40); RDW 16.7 % (11.5-15.5)
[2017-11-02 05:23] LABS: Anion Gap 6 mmol/L; Blood Urea Nitrogen 9 mg/dL (7-17); Calcium 7.5 mg/dL (8.4-10.2); Carbon Dioxide 22 mmol/L (22-30); Glucose 104 mg/dL (74-99); Magnesium 1.7 mg/dL (1.6-2.3); Partial Thromboplastin Time 29.6 sec (22.0-30.0); Phosphorus 1.7 mg/dL (2.5-4.5); Prothrombin Time 9.7 sec (9.0-12.0); Sodium 148 mmol/L (137-145)
[2017-11-02 05:25] LABS: ABG Base Excess -4.1 mmol/L; ABG HCO3 21 mmol/L (21-25); ABG Oxygen Saturation 99.4 % (94-97); ABG PCO2 35 mmHg (35-45); ABG PH 7.39 (7.35-7.45); ABG PO2 117 mmHg (83-108); ABG TCO2 22 mmol/L (19-24)
[2017-11-02 05:31] LABS: Potassium 3.7 mmol/L (3.5-5.1)
[2017-11-02 05:35] LABS: Chloride 120 mmol/L (98-107)
[2017-11-02] MEDS ORDERED: HEPARIN SODIUM,PORCINE 5,000 UNIT/ML 1 ML VIAL IV ONE (06:00)
[2017-11-02] MEDS ORDERED: POTASSIUM CHLORIDE ORAL LIQUID 40 MEQ/30 ML CUP NG-TUBE SCH (06:00)
[2017-11-02] MEDS ORDERED: HEPARIN SODIUM,PORCINE 5,000 UNIT/ML 1 ML VIAL IV PRN (06:00)
[2017-11-02] MEDS: HEPARIN SOD,PORK IN 0.45% NACL 25,000 UNIT in 0.45% NACL 1 500ML.BAG IV SCH (06:12)
[2017-11-02] MEDS: PROPOFOL 1,000 MG in EMPTY BAG 1 BAG IV SCH ×3 (06:13→22:01)
[2017-11-02] MEDS: SODIUM CHLORIDE 0.45% 1,000 ML IV SCH ×2 (06:32→17:42)
[2017-11-02] MEDS: MAGNESIUM SULFATE-D5W PMX 1 GM in DEXTROSE/WATER 1 100ML.BAG IVPB SCH ×2 (06:32→08:40)
[2017-11-02] MEDS: POTASSIUM PHOSPHATE 10 MMOL in SODIUM CHLORIDE 0.9% 100 ML IV SCH ×2 (08:40→14:11)
[2017-11-02] MEDS: AMIODARONE 200 MG TAB PO SCH ×2 (08:41→20:42)
[2017-11-02] MEDS: CHLORHEXIDINE GLUCONATE 15 ML CUP MUCOUS MEM SCH ×2 (08:41→20:42)
--- NOTE | 2017-11-02 09:19 | XR ---
EXAMINATION TYPE: XR chest 1V portable DATE OF EXAM: 11/02/2017 COMPARISON: 11/01/2017 HISTORY: Tube placement TECHNIQUE: Single frontal view of the chest is obtained. FINDINGS: NG tube only slight lucency at the junction. Bilateral consolidation and pleural effusion noted. Central line and ET tube stable. No pneumothorax. IMPRESSION: 1. Bilateral airspace disease and pleural effusion correlate for diffuse pneumonia versus pulmonary e patric. 2. NG tube is somewhat proximal to level of the GE junction correlate for advancement of the NG tube.
[2017-11-02] MEDS: PANTOPRAZOLE 40 MG/10 ML VIAL IV SCH (09:30)
[2017-11-02] MEDS: OSELTAMIVIR 60 MG/10 ML ORAL SYRINGE PO SCH ×2 (09:31→18:20)
[2017-11-02] MEDS: DIGOXIN 250 MCG/ML 2 ML AMP IVP SCH (09:31)
[2017-11-02] MEDS ORDERED: DIGOXIN 250 MCG/ML 2 ML AMP IVP ONE (12:00)
[2017-11-02] MEDS ORDERED: VANCOMYCIN 1,500 MG in SODIUM CHLORIDE 0.9% 250 ML IVPB SCH (12:15)
--- NOTE | 2017-11-02 12:39 | P.PN ---
Subjective Progress Note Date: 11/01/17 (Late entry note) Principal diagnosis: Right-sided acute secondary bacterial pneumonia, influenza B pneumonia, acute hypoxic respirator failure, severe sepsis and septic shock, volume depleted and dehydrated status atrial fibrillation with a rapid ventricular response 11/01/2017, patient seen and evaluated examined during the rounds clinically doing well this is a delayed entry note for services provided on November 01, critical care time spent 35 minutes, patient is clinically improved in terms of severe sepsis and hypertension as levo fed drip is gradually being titrated down urine output remains adequate when setting remains same with assist control of 1220 tidal volume of 505 of PEEP and 40% oxygen and developed problems associated with atrial fibrillation and rapid ventricular response with intermittent episodes of tachycardia with some a flutter, cardiovascular services has been consulted patient has been started on IV amiodarone as well as being digitalized, unable to lower down the propofol drip as patient has episodes of agitation and tachycardia October 31 2017, patient seen eval examined during the rounds critical care time spent 35 minutes, Care plan discussed with RN at length patient of note that continued to decompensate overnight requiring intubation postintubation chest x-ray reviewed and compared with prior x-ray dense consolidation in right midlung field and right lower lobe is noted stable ET tube cardiomegaly and is interstitial edema otherwise has been noted postintubation slight improvement in oxygenation as well as hemodynamics noted but continued to require significant amount of levo fed, patient is currently on the 12 mics of levo fed along with 40 mics of propofol and also getting IV normal saline 100 mL an hour she is sedated with propofol drip she has adequate urine output, 10 respiratory secretions are noted patient has a OG tube plantar and to initiate tube feed, patient will need a central line as well consent is being obtained, currently patient is on assist control rate of 20 tidal volume of 500, 5 of PEEP and the FiO2 is gradually being titrated from 100% to 50% urine and blood culture results are pending sputum culture are pending as well, noted rise in white cell count and leukocytosis likely multifactorial, arterial blood gases reviewed and ventilator setting has been adjusted, noted severe hypokalemia and hypomagnesemia patient is being replaced on protocol, also noted very high BNP level and mildly elevated troponin we'll monitor and observed, hypoglycemia that was noted previously has improved though Mrs. Parsons is well-known to me she is a 72-year-old female who came into the hospital from ECF with the use of recent history of influenza B pneumonia with increasing acute onset of shortness of breath of one day duration was spiking fever cough not feeling well patient was very weak and exhausted as well patient was admitted from the emergency department on the selective care due to shortness of breath she was placed on BiPAP and eventually transferred to the ICU, consult was initiated with another firearms model maker subsequently switched to [place] , she was seen and evaluated examined patient was hypotensive as well had a fluid challenge of crystalloid 500 mL and another 500 mL are being given patient oxygenation is fairly satisfactory on BiPAP but she remains tachypneic and somnolent noted that she has received a dose of Lasix as well but however patient clearly is volume depleted rather benefit from fluid resuscitation rather than diuresis, further workup and evaluation revealed patient has a influenza B pneumonia and possibly secondary bacterial pneumonia as well patient is being monitor observe in the ICU if decompensated would consider doing intubation continue fluid resuscitation and vasopressors, patient will likely need a central line as well Patient recently hospitalized for acute exacerbation of CHF rapid atrial fibrillation and acute diastolic heart failure she had bilateral pleural effusion which are being monitored and observed improved with therapy, patient was seen and evaluated by cardiovascular services and she underwent a elective cardioversion According to the report she also was thought to have pneumonia in an ECF. Patient has a fever as well. Patient herself is somewhat demented but denies any current pain denies any problem breathing currently. Patient denies any abdominal pain. There's been no report of any vomiting or diarrhea. Patient is on Tamiflu. Overall patient is a poor historian not much detail can be obtained from her Objective - Vital Signs Vital signs: Vital Signs Temp 99.8 F H 11/02/17 04:00 Pulse 111 H 11/02/17 11:00 Resp 25 H 11/02/17 11:00 BP 117/76 11/01/17 21:30 Pulse Ox 97 11/02/17 11:00 Intake & Output 11/01/17 11/02/17 11/02/17 18:59 06:59 18:59 Intake Total 2174.479 2687.715 1089.230 Output Total 725 760 380 Balance 9880.597 9403.715 709.230 Weight 84.8 kg Intake: IV 1133 1589 600 0.9 for pressure 33 39 Magnesium Sulfate-D5w Pmx 100 1 gm In Dextrose/Water 1 100ml.bag @ 100 mls/hr IVPB Q1H [facility] Rx#: [id number] Potassium Chloride 10 meq 100 In Water For Injection 1 100ml.bag @ 100 mls/hr IVPB Q1H [facility] Rx#: [id number] Sodium Chloride 0.9% 1, 1100 1300 400 000 ml @ 100 mls/hr IV . Q10H [facility] Rx#:[id number] Vancomycin 1,750 mg In 250 Sodium Chloride 0.9% 250 ml @ 125 mls/hr IVPB ONCE ONE Rx#:[id number] Intake, IV Titration 581.479 175.715 75.230 Amount Norepinephrin 16 mg-0.9% 276.446 113.281 23.017 Ns Pmx 16 mg In 250 ml @ Titrate IV .Q0M [facility] Rx#: [id number] Propofol 1,000 mg In 305.033 62.434 52.213 Empty Bag 1 bag @ Titrate IV .Q0M [facility] Rx#: [id number] Tube Feeding 370 833 294 Other 90 90 120 Output: Urine 725 760 380 Other: Voiding Method Indwelling Catheter Indwelling Catheter Indwelling Catheter # Bowel Movements 1 ABP, PAP, CO, CI - Last Documented Arterial Blood Pressure 119/71 - Exam GENERAL: Patient is well-developed and well-nourished. Patient appears to be well- hydrated and is in mild to moderate respiratory distress on ventilator ENT: Neck is soft and supple. Neck veins are prominent but no significant JVD noted No significant lymphadenopathy is noted. Oropharynx is clear. Moist mucous membranes. EYES: The sclera were anicteric and conjunctiva were pink and moist. pupils were equal round and reactive to light. Eyelids were unremarkable. PULMONARY: Patient has Rales diffusely, with an expiratory rhonchi and crackles they're present bilaterally patient has slightly prolonged expiratory phase as well, bronchial breath sounds are predominately present on the right side posteriorly up to one third of the lung CARDIOVASCULAR: There is a regular rate and rhythm without any murmurs gallops or rubs. ABDOMEN: Soft and nontender with normal bowel sounds. No palpable organomegaly was noted. There is no palpable pulsatile mass. SKIN: Skin is clear with no lesions or rashes and otherwise unremarkable. NEUROLOGIC: Patient is sedated with propofol drip, overall neuro exam is stable no changes been noted MUSCULOSKELETAL: Normal extremities with adequate strength and full range of motion. LYMPHATICS: No significant lymphadenopathy is noted PSYCHIATRIC: No obvious distress is present from mental standpoint - Labs CBC & Chem 7: 11/02/17 04:46 11/02/17 04:46 Labs: Abnormal Lab Results - Last 24 Hours (Table) 11/02/17 11/02/17 11/02/17 Range/Units 04:46 04:46 05:20 RDW 16.7 H (11.5-15.5) % Plt Count 119 L (150-450) k/uL Neutrophils # 8.2 H (1.3-7.7) k/uL Lymphocytes # 0.5 L (1.0-4.8) k/uL ABG pO2 117 H (83-108) mmHg ABG O2 Saturation 99.4 H (94-97) % Sodium 148 H (137-145) mmol/L Chloride 120 H* (98-107) mmol/L Glucose 104 H (74-99) mg/dL Calcium 7.5 L (8.4-10.2) mg/dL Phosphorus 1.7 L (2.5-4.5) mg/dL Microbiology - Last 24 Hours (Table) 10/30/17 09:00 Blood Culture - Preliminary Blood No Growth after 72 hours 10/30/17 20:55 Gram Stain - Final Sputum Sputum Culture - Final Staphylococcus aureus 10/30/17 17:30 Blood Culture - Preliminary Blood No Growth after 48 hours Assessment and Plan Assessment: Acute onset of the atrial flutter/fibrillation with rapid ventricular response Severe sepsis and septic shock related related to right-sided pneumonia predominantly involving the right perihilar area and as well as the right lower lobe Suspect secondary bacterial pneumonia gram-negative and/or or Staph cannot be excluded Acute hypoxic respiratory failure related to that Chronic paroxysmal atrial fibrillation and acute on chronic diastolic heart failure Recent acute influenza B pneumonia Baseline severe COPD emphysema Hypokalemia, hypomagnesemia, hypoglycemia Plan: Continue ventilator support with adjustment as indicated above Gentle baseline hydration with intermittent crystalloid boluses to support blood pressure vasopressors as well will keep systolic blood pressure over 90 and monitor observe for adequate perfusion as well as urine output patient will likely need a central line if continued to require levofed with escalating dose Freeman culture including urine and blood and sputum Continuation with Tamiflu along with the IV antibiotics with vancomycin patient already has been on Rocephin and Zithromax we'll maintain for now Maintain patient on DVT and peptic ulcer disease prophylaxis Will continue and maintain on bronchodilators Continue and maintain on steroids with slow taper Fever control with IV Tylenol and Motrin/Tylenol as needed Replacement of electrolytes Nutritional support with tube feed Patient is on IV amiodarone along with being digitalized, cardiovascular services following Time with Patient: Greater than 30
--- NOTE | 2017-11-02 12:45 | P.PN ---
Subjective Progress Note Date: 11/02/17 (Critical care time spent 45 minutes) Principal diagnosis: Right-sided acute secondary bacterial pneumonia, influenza B pneumonia, acute hypoxic respirator failure, severe sepsis and septic shock, volume depleted and dehydrated status atrial fibrillation with a rapid ventricular response 11/02/2017, patient seen and evaluated examined critical care time spent 45 minutes, patient's the propofol drip has been discontinued but remain somnolent slightly anxious with slight tachypnea and respiratory rate is in mid 20s, patient remains on levo fed drip on the 5-6 mics blood pressure ranging from systolic is 9210 intermittent tachycardia is noted with heart rate of 110-120 remains in atrial fibrillation, patient is off of amiodarone drip has been started on oral, being digitalized with an extra dose of digoxin has been given , culture results and reports are reviewed patient is growing MSSA in respiratory secretions, patient remains on Rocephin, vancomycin and azithromycin , chest x-ray laboratory data reviewed patient remains on the lower side on potassium and magnesium being replaced, patient has been off of Xaralto for 72 hours and IV heparin drip has been started for now I have ordered a computed tomography scan of the head, care plan discussed with the family at length patient is not ready for weaning and/or extubation 11/01/2017, patient seen and evaluated examined during the rounds clinically doing well this is a delayed entry note for services provided on November 01, critical care time spent 35 minutes, patient is clinically improved in terms of severe sepsis and hypertension as levo fed drip is gradually being titrated down urine output remains adequate when setting remains same with assist control of 1220 tidal volume of 505 of PEEP and 40% oxygen and developed problems associated with atrial fibrillation and rapid ventricular response with intermittent episodes of tachycardia with some a flutter, cardiovascular services has been consulted patient has been started on IV amiodarone as well as being digitalized, unable to lower down the propofol drip as patient has episodes of agitation and tachycardia October 31 2017, patient seen eval examined during the rounds critical care time spent 35 minutes, Care plan discussed with RN at length patient of note that continued to decompensate overnight requiring intubation postintubation chest x-ray reviewed and compared with prior x-ray dense consolidation in right midlung field and right lower lobe is noted stable ET tube cardiomegaly and is interstitial edema otherwise has been noted postintubation slight improvement in oxygenation as well as hemodynamics noted but continued to require significant amount of levo fed, patient is currently on the 12 mics of levo fed along with 40 mics of propofol and also getting IV normal saline 100 mL an hour she is sedated with propofol drip she has adequate urine output, 10 respiratory secretions are noted patient has a OG tube plantar and to initiate tube feed, patient will need a central line as well consent is being obtained, currently patient is on assist control rate of 20 tidal volume of 500, 5 of PEEP and the FiO2 is gradually being titrated from 100% to 50% urine and blood culture results are pending sputum culture are pending as well, noted rise in white cell count and leukocytosis likely multifactorial, arterial blood gases reviewed and ventilator setting has been adjusted, noted severe hypokalemia and hypomagnesemia patient is being replaced on protocol, also noted very high BNP level and mildly elevated troponin we'll monitor and observed, hypoglycemia that was noted previously has improved though Mrs. Parsons is well-known to me she is a 72-year-old female who came into the hospital from [facility] with the use of recent history of influenza B pneumonia with increasing acute onset of shortness of breath of one day duration was spiking fever cough not feeling well patient was very weak and exhausted as well patient was admitted from the emergency department on the selective care due to shortness of breath she was placed on BiPAP and eventually transferred to the ICU, consult was initiated with another school child care attendant subsequently switched to [place] , she was seen and evaluated examined patient was hypotensive as well had a fluid challenge of crystalloid 500 mL and another 500 mL are being given patient oxygenation is fairly satisfactory on BiPAP but she remains tachypneic and somnolent noted that she has received a dose of Lasix as well but however patient clearly is volume depleted rather benefit from fluid resuscitation rather than diuresis, further workup and evaluation revealed patient has a influenza B pneumonia and possibly secondary bacterial pneumonia as well patient is being monitor observe in the ICU if decompensated would consider doing intubation continue fluid resuscitation and vasopressors, patient will likely need a central line as well Patient recently hospitalized for acute exacerbation of CHF rapid atrial fibrillation and acute diastolic heart failure she had bilateral pleural effusion which are being monitored and observed improved with therapy, patient was seen and evaluated by cardiovascular services and she underwent a elective cardioversion According to the report she also was thought to have pneumonia in an ECF. Patient has a fever as well. Patient herself is somewhat demented but denies any current pain denies any problem breathing currently. Patient denies any abdominal pain. There's been no report of any vomiting or diarrhea. Patient is on Tamiflu. Overall patient is a poor historian not much detail can be obtained from her Objective - Vital Signs Vital signs: Vital Signs Temp 99.2 F 11/02/17 12:00 Pulse 146 H 11/02/17 12:30 Resp 20 11/02/17 12:30 BP 117/76 11/01/17 21:30 Pulse Ox 97 11/02/17 12:30 Intake & Output 11/01/17 11/02/17 11/02/17 18:59 06:59 18:59 Intake Total 2174.479 2687.715 1287.230 Output Total 725 760 415 Balance 1016.078 6318.715 872.230 Weight 84.8 kg Intake: IV 1133 1589 700 0.9 for pressure 33 39 Magnesium Sulfate-D5w Pmx 100 1 gm In Dextrose/Water 1 100ml.bag @ 100 mls/hr IVPB Q1H [facility] Rx#: [id number] Potassium Chloride 10 meq 100 In Water For Injection 1 100ml.bag @ 100 mls/hr IVPB Q1H [facility] Rx#: [id number] Sodium Chloride 0.9% 1, 1100 1300 500 000 ml @ 100 mls/hr IV . Q10H [facility] Rx#:[id number] Vancomycin 1,750 mg In 250 Sodium Chloride 0.9% 250 ml @ 125 mls/hr IVPB ONCE ONE Rx#:[id number] Intake, IV Titration 581.479 175.715 75.230 Amount Norepinephrin 16 mg-0.9% 276.446 113.281 23.017 Ns Pmx 16 mg In 250 ml @ Titrate IV .Q0M [facility] Rx#: [id number] Propofol 1,000 mg In 305.033 62.434 52.213 Empty Bag 1 bag @ Titrate IV .Q0M [facility] Rx#: [id number] Tube Feeding 370 833 392 Other 90 90 120 Output: Urine 725 760 415 Other: Voiding Method Indwelling Catheter Indwelling Catheter Indwelling Catheter # Bowel Movements 1 ABP, PAP, CO, CI - Last Documented Arterial Blood Pressure 105/62 - Exam GENERAL: Patient is well-developed and well-nourished. Patient appears to be well- hydrated and is in mild to moderate respiratory distress on ventilator ENT: Neck is soft and supple. Neck veins are prominent but no significant JVD noted No significant lymphadenopathy is noted. Oropharynx is clear. Moist mucous membranes. EYES: The sclera were anicteric and conjunctiva were pink and moist. pupils were equal round and reactive to light. Eyelids were unremarkable. PULMONARY: Patient has Rales diffusely, with an expiratory rhonchi and crackles they're present bilaterally patient has slightly prolonged expiratory phase as well, bronchial breath sounds are predominately present on the right side posteriorly up to one third of the lung CARDIOVASCULAR: There is a regular rate and rhythm without any murmurs gallops or rubs. ABDOMEN: Soft and nontender with normal bowel sounds. No palpable organomegaly was noted. There is no palpable pulsatile mass. SKIN: Skin is clear with no lesions or rashes and otherwise unremarkable. NEUROLOGIC: Patient is sedated with propofol drip, overall neuro exam is stable no changes been noted MUSCULOSKELETAL: Normal extremities with adequate strength and full range of motion. LYMPHATICS: No significant lymphadenopathy is noted PSYCHIATRIC: No obvious distress is present from mental standpoint - Labs CBC & Chem 7: 11/02/17 04:46 11/02/17 04:46 Labs: Abnormal Lab Results - Last 24 Hours (Table) 11/02/17 11/02/17 11/02/17 Range/Units 04:46 04:46 05:20 RDW 16.7 H (11.5-15.5) % Plt Count 119 L (150-450) k/uL Neutrophils # 8.2 H (1.3-7.7) k/uL Lymphocytes # 0.5 L (1.0-4.8) k/uL ABG pO2 117 H (83-108) mmHg ABG O2 Saturation 99.4 H (94-97) % Sodium 148 H (137-145) mmol/L Chloride 120 H* (98-107) mmol/L Glucose 104 H (74-99) mg/dL Calcium 7.5 L (8.4-10.2) mg/dL Phosphorus 1.7 L (2.5-4.5) mg/dL Microbiology - Last 24 Hours (Table) 10/30/17 09:00 Blood Culture - Preliminary Blood No Growth after 72 hours 02/02/18 20:55 Gram Stain - Final Sputum Sputum Culture - Final Staphylococcus aureus 10/30/17 17:30 Blood Culture - Preliminary Blood No Growth after 48 hours Assessment and Plan Assessment: Acute onset of the atrial flutter/fibrillation with rapid ventricular response Severe sepsis and septic shock related related to right-sided pneumonia predominantly involving the right perihilar area and as well as the right lower lobe Suspect secondary bacterial pneumonia gram-negative and/or or Staph cannot be excluded Acute hypoxic respiratory failure related to that Chronic paroxysmal atrial fibrillation and acute on chronic diastolic heart failure Recent acute influenza B pneumonia Baseline severe COPD emphysema Hypokalemia, hypomagnesemia, hypoglycemia Plan: Continue ventilator support with adjustment as indicated above Gentle baseline hydration with intermittent crystalloid boluses to support blood pressure vasopressors as well will keep systolic blood pressure over 90 and monitor observe for adequate perfusion as well as urine output patient will likely need a central line if continued to require levofed with escalating dose Freeman culture including urine and blood and sputum Continuation with Tamiflu along with the IV antibiotics with vancomycin patient already has been on Rocephin and Zithromax we'll maintain for now Maintain patient on DVT and peptic ulcer disease prophylaxis Will continue and maintain on bronchodilators Continue and maintain on steroids with slow taper Fever control with IV Tylenol and Motrin/Tylenol as needed Replacement of electrolytes Nutritional support with tube feed Patient is on oral amiodarone along with being digitalized, cardiovascular services following, computed tomography scan of the head is pending Time with Patient: Greater than 30
[2017-11-02] MEDS: cefTRIAXone IN SWFI 1,000 MG/10 ML SYRINGE IVP SCH (12:46)
[2017-11-02] MEDS: AZITHROMYCIN 500 MG in SODIUM CHLORIDE 0.9% 250 ML IVPB SCH (13:27)
--- NOTE | 2017-11-02 13:30 | CT ---
EXAMINATION TYPE: CT brain wo con DATE OF EXAM: 11/02/2017 COMPARISON: NONE HISTORY: mental status change Unenhanced CT of the brain was performed. The ventricles, basal cisterns and sulci overlying the cerebral convexities demonstrate mild enlargem ent. There is no evidence for intracranial hemorrhage or sulcal effacement. There is decreased attenuation about the periventricular white matter and deep white matter of both c erebral hemispheres, compatible with chronic small vessel ischemia. Differential diagnosis does inclu de demyelination. No mass effects are seen.No midline shift. Osseous calvarium is intact. Chronic maxillary and ethmoidal sinusitis. Sphenoid sinusitis also note d. If symptoms persist consider MRI. IMPRESSION: 1. Age related atrophic and chronic small vessel ischemic change without acute intracranial process s een at this time.
[2017-11-02] MEDS: VANCOMYCIN 1,500 MG in SODIUM CHLORIDE 0.9% 250 ML IVPB SCH (17:42)
[2017-11-03] MEDS: NOREPINEPHRIN 16 MG-0.9%NS PMX 16 MG/250 ML ML IV SCH ×2 (03:11→08:13)
[2017-11-03] MEDS: SODIUM CHLORIDE 0.45% 1,000 ML IV SCH ×2 (03:11→12:28)
[2017-11-03 04:45] LABS: Anisocytosis Slight; Basophils % (A) 0 %; Eosinophils # (A) 0.7 k/uL (0-0.7); Eosinophils % (A) 8 %; HCT 34.9 % (34.0-46.0); HGB 10.8 gm/dL (11.4-16.0); Hypochromasia Slight; Lymphocytes # (A) 0.7 k/uL (1.0-4.8); Lymphocytes % (A) 9 %; MCH 28.7 pg (25.0-35.0); MCHC 30.8 g/dL (31.0-37.0); MCV 93.1 fL (80.0-100.0); Monocytes # (A) 0.5 k/uL (0-1.0); Monocytes % (A) 6 %; Neutrophils # (A) 5.9 k/uL (1.3-7.7); Neutrophils % (A) 75 %; Platelet Count 147 k/uL (150-450); RBC 3.75 m/uL (3.80-5.40); RDW 16.2 % (11.5-15.5); WBC 7.8 k/uL (3.8-10.6)
[2017-11-03 05:01] LABS: Anion Gap 4 mmol/L; Blood Urea Nitrogen 10 mg/dL (7-17); Calcium 7.2 mg/dL (8.4-10.2); Carbon Dioxide 21 mmol/L (22-30); Chloride 117 mmol/L (98-107); Glucose 91 mg/dL (74-99); Magnesium 1.9 mg/dL (1.6-2.3); Phosphorus 2.5 mg/dL (2.5-4.5); Potassium 4.2 mmol/L (3.5-5.1); Sodium 142 mmol/L (137-145)
[2017-11-03 05:14] LABS: ABG Base Excess -3.8 mmol/L; ABG HCO3 21 mmol/L (21-25); ABG Oxygen Saturation 98.6 % (94-97); ABG PCO2 35 mmHg (35-45); ABG PH 7.39 (7.35-7.45); ABG PO2 120 mmHg (83-108); ABG TCO2 22 mmol/L (19-24)
[2017-11-03] MEDS ORDERED: Magnesium Replacement Protocol 1 EACH MISC MISCELLANE PRN (05:34)
[2017-11-03] MEDS: MAGNESIUM SULFATE-D5W PMX 1 GM in DEXTROSE/WATER 1 100ML.BAG IVPB SCH ×2 (06:30→08:13)
[2017-11-03] MEDS: PROPOFOL 1,000 MG in EMPTY BAG 1 BAG IV SCH (06:36)
[2017-11-03] MEDS: HEPARIN SOD,PORK IN 0.45% NACL 25,000 UNIT in 0.45% NACL 1 500ML.BAG IV SCH (06:50)
--- NOTE | 2017-11-03 07:06 | PN ---
PROGRESS NOTE DATE OF SERVICE: 11/02/2017 PRESENTING COMPLAINT: Intubated. INTERVAL HISTORY: Patient initially presented with acute influenza B pneumonitis, metabolic encephalopathy and now intubated in the ICU. Remains on the ventilator. The patient also was on amiodarone for atrial fibrillation. Patient remains on Levophed drip and Diprivan. Also getting tube feeds at 49 mL an hour. Some tube secretion. Family is at the bedside. REVIEW OF SYSTEMS: Patient is intubated. MEDICATIONS: Current medications are reviewed that include p.o. Cordarone, IV ceftriaxone, IV digoxin, IV heparin, Levophed, Tamiflu, IV propofol, IV vancomycin. PHYSICAL EXAMINATION: On examination, temperature 98.2, pulse 114, respirations 20, blood pressure 101/57, pulse ox 97%. GENERAL APPEARANCE: Lying in bed, intubated. EYES: Pupils equal. Conjunctive normal. HENT: External appearance of nose and ears normal. Oral cavity, endotracheal tube in place. NECK: JVD unable to assess. Mass not palpable. RESPIRATORY: Effort increased. LUNGS: Diminished breath sounds. Some crackles. CARDIOVASCULAR: Heart sounds irregular. No edema. ABDOMEN: Soft, nontender. Liver and spleen not palpable. PSYCHIATRY: Unable to assess. NEUROLOGICAL: Pupils equal, reactive. INVESTIGATIONS: White count 10., hemoglobin 11.7. Potassium 3.7, BUN 9, creatinine 0.60, sodium 148. Chest x-ray, bilateral airspace disease, possible pulmonary edema. CT scan of the brain showed age-related changes. ASSESSMENT: 1. Bilateral pneumonia suspect gram-negative organism in a patient having influenza B pneumonitis causing acute hypoxic respiratory failure and sepsis to being on a ventilator with not much improvement. 2. Acute metabolic encephalopathy with acute delirium, present on admission from above. 3. Atrial flutter fibrillation with rapid ventricular rate. On the last admission, patient did have cardioversion. 4. of septic shock. Patient continues to be on Levophed. 5. Hyperlipidemia. 6. Chronic medical debility. Patient uses mechanical lift at the baseline for transfer. 7. Acute chronic obstructive pulmonary disease exacerbation in an ex-smoker. 8. Chronic T9-T10 vertebral body fracture, likely from osteoporosis. 9. Restless leg syndrome. 10.Chronic insomnia. 11.Right rotator cuff tear. PLAN: Prognosis is not good. Discussed with the family at the bedside. Continue current medication. Continue supportive care. Tube feeding is to continue. Prognosis yet again not good. MMODL / IJN: [id number] /
[2017-11-03] MEDS: ALBUTEROL NEBULIZED 2.5 MG/3 ML INHALATION PRN ×4 (07:23→19:17)
[2017-11-03] MEDS: CHLORHEXIDINE GLUCONATE 15 ML CUP MUCOUS MEM SCH ×2 (08:13→20:53)
[2017-11-03] MEDS: AMIODARONE 200 MG TAB PO SCH ×3 (08:13→22:11)
[2017-11-03] MEDS: DIGOXIN 250 MCG/ML 2 ML AMP IVP SCH (08:13)
[2017-11-03] MEDS: OSELTAMIVIR 60 MG/10 ML ORAL SYRINGE PO SCH ×2 (08:13→17:10)
[2017-11-03] MEDS: PANTOPRAZOLE 40 MG/10 ML VIAL IV SCH (08:13)
[2017-11-03] MEDS: VANCOMYCIN 1,500 MG in SODIUM CHLORIDE 0.9% 250 ML IVPB SCH (08:37)
--- NOTE | 2017-11-03 09:13 | XR ---
EXAMINATION TYPE: XR chest 1V portable DATE OF EXAM: 11/03/2017 COMPARISON: 11/02/2017 HISTORY: Tube placement TECHNIQUE: Single frontal view of the chest is obtained. FINDINGS: NG tube has been advanced and appears in good position. Bilateral consolidation and pleura l effusion noted. Central line and ET tube stable. No pneumothorax. IMPRESSION: 1. Bilateral airspace disease and pleural effusion correlate for diffuse pneumonia versus pulmonary edema.
--- NOTE | 2017-11-03 09:47 | P.PN ---
Subjective Progress Note Date: 11/03/17 This is a 72-year-old female with history of atrial fibrillation which was persistent. Patient had cardioversion and was maintaining sinus rhythm until patient is admitted now with pneumonia. Patient is intubated for respiratory failure and sepsis. Patient is still hypotensive. Patient is on amiodarone and also digoxin. I'm going to increase the dose of the amiodarone to 600 mg. We'll also obtain a digoxin level tomorrow. Chest x-ray still shows bilateral infiltrates, more on the right side.. Rest of the management as for pulmonary Objective - Vital Signs Vital signs: Vital Signs Temp 99.8 F H 11/03/17 08:00 Pulse 142 H 11/03/17 08:30 Resp 22 11/03/17 08:30 BP 117/76 11/01/17 21:30 Pulse Ox 97 11/03/17 08:30 Intake & Output 11/02/17 11/03/17 11/03/17 18:59 06:59 18:59 Intake Total 2230.230 2851.929 355.591 Output Total 630 755 130 Balance 5214.303 8533.929 225.591 Weight 88.8 kg Intake: IV 1300 1460 300 0.9 for pressure 60 Magnesium Sulfate-D5w Pmx 100 100 100 1 gm In Dextrose/Water 1 100ml.bag @ 100 mls/hr IVPB Q1H [facility] Rx#: [id number] Potassium Chloride 10 meq 100 In Water For Injection 1 100ml.bag @ 100 mls/hr IVPB Q1H [facility] Rx#: [id number] Sodium Chloride 0.45% 1, 1000 1300 200 000 ml @ 100 mls/hr IV . Q10H [facility] Rx#:[id number] Sodium Chloride 0.9% 1, 100 000 ml @ 100 mls/hr IV . Q10H [facility] Rx#:[id number] Intake, IV Titration 75.230 674.929 6.591 Amount Heparin Sod,Pork in 0.45% 475.916 NaCl 25,000 unit In 0.45 % NaCl 1 500ml.bag @ 12 UNITS/KG/HR 19.32 mls/hr IV .Q24H [facility] Rx#: [id number] Norepinephrin 16 mg-0.9% 23.017 99.013 5.471 Ns Pmx 16 mg In 250 ml @ Titrate IV .Q0M [facility] Rx#: [id number] Propofol 1,000 mg In 52.213 100 1.12 Empty Bag 1 bag @ Titrate IV .Q0M [facility] Rx#: [id number] Tube Feeding 735 627 49 Other 120 90 Output: Urine 630 755 130 Other: Voiding Method Indwelling Catheter Indwelling Catheter # Bowel Movements 1 1 ABP, PAP, CO, CI - Last Documented Arterial Blood Pressure 112/65 - Exam GENERAL EXAM: Patient is intubated and sedated HEENT: Normocephalic. Normal reaction of pupils, equal size, normal range of extraocular motion. No erythema or exudates in the throat. NECK: No masses, no nuchal rigidity. CHEST: No chest wall deformity. LUNGS: Diffuse rhonchi HEART: [S1 and S2 normal. Irregular rhythm ABDOMEN: No hepatosplenomegaly, normal bowel sounds, no guarding or rigidity. SKIN: No rashes CENTRAL NERVOUS SYSTEM: Deferred EXTREMITIES: Edema - Labs CBC & Chem 7: 11/03/17 04:20 11/03/17 04:20 Labs: Abnormal Lab Results - Last 24 Hours (Table) 11/02/17 11/03/17 11/03/17 Range/Units 12:50 04:20 04:20 RBC 3.75 L (3.80-5.40) m/uL Hgb 10.8 L (11.4-16.0) gm/dL MCHC 30.8 L (31.0-37.0) g/dL RDW 16.2 H (11.5-15.5) % Plt Count 147 L (150-450) k/uL Lymphocytes # 0.7 L (1.0-4.8) k/uL APTT 72.5 H (22.0-30.0) sec ABG pO2 (83-108) mmHg ABG O2 Saturation (94-97) % Chloride 117 H (98-107) mmol/L Carbon Dioxide 21 L (22-30) mmol/L Calcium 7.2 L (8.4-10.2) mg/dL 11/03/17 11/03/17 Range/Units 04:20 05:13 RBC (3.80-5.40) m/uL Hgb (11.4-16.0) gm/dL MCHC (31.0-37.0) g/dL RDW (11.5-15.5) % Plt Count (150-450) k/uL Lymphocytes # (1.0-4.8) k/uL APTT 45.9 H (22.0-30.0) sec ABG pO2 120 H (83-108) mmHg ABG O2 Saturation 98.6 H (94-97) % Chloride (98-107) mmol/L Carbon Dioxide (22-30) mmol/L Calcium (8.4-10.2) mg/dL Microbiology - Last 24 Hours (Table) 10/30/17 17:30 Blood Culture - Preliminary Blood No Growth after 72 hours 10/30/17 09:00 Blood Culture - Preliminary Blood No Growth after 72 hours 10/30/17 20:55 Gram Stain - Final Sputum Sputum Culture - Final Staphylococcus aureus Assessment and Plan (1) Influenza B Current Visit: Yes Status: Acute Code(s): J10.1 - FLU DUE TO OTH IDENT INFLUENZA VIRUS W OTH RESP MANIFEST SNOMED Code(s): 78450804 (2) Pneumonia Current Visit: Yes Status: Acute Code(s): J18.9 - PNEUMONIA, UNSPECIFIED ORGANISM SNOMED Code(s): 425338961 (3) Atrial fibrillation with RVR Current Visit: No Status: Acute Code(s): I48.91 - UNSPECIFIED ATRIAL FIBRILLATION SNOMED Code(s): 164123518622958 (4) COPD (chronic obstructive pulmonary disease) Current Visit: No Status: Acute Code(s): J44.9 - CHRONIC OBSTRUCTIVE PULMONARY DISEASE, UNSPECIFIED SNOMED Code(s): 12894591 Plan: I'm going to increase the dose of the amiodarone. Obtain digoxin level tomorrow. Rest of the management as for pulmonary
[2017-11-03 09:54] VITALS: BMI 31.6
[2017-11-03] MEDS: AZITHROMYCIN 500 MG in SODIUM CHLORIDE 0.9% 250 ML IVPB SCH (12:29)
--- NOTE | 2017-11-03 14:40 | P.PN ---
Subjective Progress Note Date: 11/03/17 Principal diagnosis: Right-sided acute secondary bacterial pneumonia, influenza B pneumonia, acute hypoxic respirator failure, severe sepsis and septic shock, volume depleted and dehydrated status atrial fibrillation with a rapid ventricular response Femora 2017, patient seen and evaluated examined care plan discussed with the patient's family as well as nursing staff at length critical care time spent 35 minutes, computed tomography scan of the head performed no acute pathology has been identified, patient has been placed on propofol drip for that and has been continued overnight. This morning during evaluation patient has been off of propofol for almost 5 hours some facial grimaces has been seen but however if she is still not opening her eyes she is on 3 mics of levo fed drip last set of blood pressure systolic was over 100, vent settings reviewed currently patient is on assist control rate of 20 breathing about 24-26, tidal volume is 500, 5 of PEEP, and 40% oxygen, arterial blood gas on this setting reviewed, urine output is adequate patient is tolerating every feed well no evidence of diarrhea is seen,secretions are thick tenacious as though, chest x-ray done today reviewed small basal pleural effusion cannot be excluded dense consolidation predominantly on the right side compared to left side, patient remains on heparin drip and is therapeutic, computed tomography scan of the head revealed age-related atrophic changes and some chronic maxillary sinusitis seen otherwise unremarkable 11/02/2017, patient seen and evaluated examined critical care time spent 45 minutes, patient's the propofol drip has been discontinued but remain somnolent slightly anxious with slight tachypnea and respiratory rate is in mid 20s, patient remains on levo fed drip on the 5-6 mics blood pressure ranging from systolic is 9210 intermittent tachycardia is noted with heart rate of 110-120 remains in atrial fibrillation, patient is off of amiodarone drip has been started on oral, being digitalized with an extra dose of digoxin has been given , culture results and reports are reviewed patient is growing MSSA in respiratory secretions, patient remains on Rocephin, vancomycin and azithromycin , chest x-ray laboratory data reviewed patient remains on the lower side on potassium and magnesium being replaced, patient has been off of Xaralto for 72 hours and IV heparin drip has been started for now I have ordered a computed tomography scan of the head, care plan discussed with the family at length patient is not ready for weaning and/or extubation 11/01/2017, patient seen and evaluated examined during the rounds clinically doing well this is a delayed entry note for services provided on November 01, critical care time spent 35 minutes, patient is clinically improved in terms of severe sepsis and hypertension as levo fed drip is gradually being titrated down urine output remains adequate when setting remains same with assist control of 1220 tidal volume of 505 of PEEP and 40% oxygen and developed problems associated with atrial fibrillation and rapid ventricular response with intermittent episodes of tachycardia with some a flutter, cardiovascular services has been consulted patient has been started on IV amiodarone as well as being digitalized, unable to lower down the propofol drip as patient has episodes of agitation and tachycardia October 31 2017, patient seen eval examined during the rounds critical care time spent 35 minutes, Care plan discussed with RN at length patient of note that continued to decompensate overnight requiring intubation postintubation chest x-ray reviewed and compared with prior x-ray dense consolidation in right midlung field and right lower lobe is noted stable ET tube cardiomegaly and is interstitial edema otherwise has been noted postintubation slight improvement in oxygenation as well as hemodynamics noted but continued to require significant amount of levo fed, patient is currently on the 12 mics of levo fed along with 40 mics of propofol and also getting IV normal saline 100 mL an hour she is sedated with propofol drip she has adequate urine output, 10 respiratory secretions are noted patient has a OG tube plantar and to initiate tube feed, patient will need a central line as well consent is being obtained, currently patient is on assist control rate of 20 tidal volume of 500, 5 of PEEP and the FiO2 is gradually being titrated from 100% to 50% urine and blood culture results are pending sputum culture are pending as well, noted rise in white cell count and leukocytosis likely multifactorial, arterial blood gases reviewed and ventilator setting has been adjusted, noted severe hypokalemia and hypomagnesemia patient is being replaced on protocol, also noted very high BNP level and mildly elevated troponin we'll monitor and observed, hypoglycemia that was noted previously has improved though Mrs. Parsons is well-known to me she is a 72-year-old female who came into the hospital from [facility] with the use of recent history of influenza B pneumonia with increasing acute onset of shortness of breath of one day duration was spiking fever cough not feeling well patient was very weak and exhausted as well patient was admitted from the emergency department on the selective care due to shortness of breath she was placed on BiPAP and eventually transferred to the ICU, consult was initiated with another personal caregiver subsequently switched to az , she was seen and evaluated examined patient was hypotensive as well had a fluid challenge of crystalloid 500 mL and another 500 mL are being given patient oxygenation is fairly satisfactory on BiPAP but she remains tachypneic and somnolent noted that she has received a dose of Lasix as well but however patient clearly is volume depleted rather benefit from fluid resuscitation rather than diuresis, further workup and evaluation revealed patient has a influenza B pneumonia and possibly secondary bacterial pneumonia as well patient is being monitor observe in the ICU if decompensated would consider doing intubation continue fluid resuscitation and vasopressors, patient will likely need a central line as well Patient recently hospitalized for acute exacerbation of CHF rapid atrial fibrillation and acute diastolic heart failure she had bilateral pleural effusion which are being monitored and observed improved with therapy, patient was seen and evaluated by cardiovascular services and she underwent a elective cardioversion According to the report she also was thought to have pneumonia in an ECF. Patient has a fever as well. Patient herself is somewhat demented but denies any current pain denies any problem breathing currently. Patient denies any abdominal pain. There's been no report of any vomiting or diarrhea. Patient is on Tamiflu. Overall patient is a poor historian not much detail can be obtained from her Objective - Vital Signs Vital signs: Vital Signs Temp 99.9 F H 11/03/17 12:00 Pulse 99 11/03/17 14:00 Resp 21 11/03/17 14:00 BP 117/76 11/01/17 21:30 Pulse Ox 98 11/03/17 14:00 Intake & Output 11/02/17 11/03/17 11/03/17 18:59 06:59 18:59 Intake Total 2234.955 2945.721 1511.164 Output Total 630 755 380 Balance 9021.499 5298.721 1131.164 Weight 88.8 kg 88.8 kg Intake: IV 1300 1460 1050 0.9 for pressure 60 Azithromycin 500 mg In 250 Sodium Chloride 0.9% 250 ml @ 125 mls/hr IVPB Q24H [facility] Rx#:[id number] Magnesium Sulfate-D5w Pmx 100 100 100 1 gm In Dextrose/Water 1 100ml.bag @ 100 mls/hr IVPB Q1H [facility] Rx#: [id number] Potassium Chloride 10 meq 100 In Water For Injection 1 100ml.bag @ 100 mls/hr IVPB Q1H [facility] Rx#: [id number] Sodium Chloride 0.45% 1, 1000 1300 700 000 ml @ 100 mls/hr IV . Q10H [facility] Rx#:[id number] Sodium Chloride 0.9% 1, 100 000 ml @ 100 mls/hr IV . Q10H [facility] Rx#:[id number] Intake, IV Titration 79.955 768.721 118.164 Amount Heparin Sod,Pork in 0.45% 475.916 111.573 NaCl 25,000 unit In 0.45 % NaCl 1 500ml.bag @ 12 UNITS/KG/HR 19.32 mls/hr IV .Q24H [facility] Rx#: [id number] Norepinephrin 16 mg-0.9% 23.017 99.013 5.471 Ns Pmx 16 mg In 250 ml @ Titrate IV .Q0M [facility] Rx#: [id number] Propofol 1,000 mg In 56.938 193.792 1.12 Empty Bag 1 bag @ Titrate IV .Q0M [facility] Rx#: [id number] Tube Feeding 735 627 343 Other 120 90 Output: Urine 630 755 380 Other: Voiding Method Indwelling Catheter Indwelling Catheter Indwelling Catheter # Bowel Movements 1 1 1 ABP, PAP, CO, CI - Last Documented Arterial Blood Pressure 107/54 - Exam GENERAL: Patient is well-developed and well-nourished. Patient appears to be well- hydrated and is in mild to moderate respiratory distress on ventilator ENT: Neck is soft and supple. Neck veins are prominent but no significant JVD noted No significant lymphadenopathy is noted. Oropharynx is clear. Moist mucous membranes. EYES: The sclera were anicteric and conjunctiva were pink and moist. pupils were equal round and reactive to light. Eyelids were unremarkable. PULMONARY: Patient has Rales diffusely, with an expiratory rhonchi and crackles they're present bilaterally patient has slightly prolonged expiratory phase as well, bronchial breath sounds are predominately present on the right side posteriorly up to one third of the lung CARDIOVASCULAR: There is a regular rate and rhythm without any murmurs gallops or rubs. ABDOMEN: Soft and nontender with normal bowel sounds. No palpable organomegaly was noted. There is no palpable pulsatile mass. SKIN: Skin is clear with no lesions or rashes and otherwise unremarkable. NEUROLOGIC: Patient is sedated with propofol drip, overall neuro exam is stable no changes been noted MUSCULOSKELETAL: Normal extremities with adequate strength and full range of motion. LYMPHATICS: No significant lymphadenopathy is noted PSYCHIATRIC: No obvious distress is present from mental standpoint - Labs CBC & Chem 7: 11/03/17 04:20 11/03/17 04:20 Labs: Abnormal Lab Results - Last 24 Hours (Table) 11/03/17 11/03/17 11/03/17 Range/Units 04:20 04:20 04:20 RBC 3.75 L (3.80-5.40) m/uL Hgb 10.8 L (11.4-16.0) gm/dL MCHC 30.8 L (31.0-37.0) g/dL RDW 16.2 H (11.5-15.5) % Plt Count 147 L (150-450) k/uL Lymphocytes # 0.7 L (1.0-4.8) k/uL APTT 45.9 H (22.0-30.0) sec ABG pO2 (83-108) mmHg ABG O2 Saturation (94-97) % Chloride 117 H (98-107) mmol/L Carbon Dioxide 21 L (22-30) mmol/L Calcium 7.2 L (8.4-10.2) mg/dL 11/03/17 11/03/17 Range/Units 05:13 10:45 RBC (3.80-5.40) m/uL Hgb (11.4-16.0) gm/dL MCHC (31.0-37.0) g/dL RDW (11.5-15.5) % Plt Count (150-450) k/uL Lymphocytes # (1.0-4.8) k/uL APTT 45.3 H (22.0-30.0) sec ABG pO2 120 H (83-108) mmHg ABG O2 Saturation 98.6 H (94-97) % Chloride (98-107) mmol/L Carbon Dioxide (22-30) mmol/L Calcium (8.4-10.2) mg/dL Microbiology - Last 24 Hours (Table) 10/30/17 09:00 Blood Culture - Preliminary Blood No Growth after 96 hours 10/30/17 17:30 Blood Culture - Preliminary Blood No Growth after 72 hours Assessment and Plan Assessment: Acute onset of the atrial flutter/fibrillation with rapid ventricular response Severe sepsis and septic shock related related to right-sided pneumonia predominantly involving the right perihilar area and as well as the right lower lobe Suspect secondary bacterial pneumonia gram-negative and/or or Staph cannot be excluded Acute hypoxic respiratory failure related to that Chronic paroxysmal atrial fibrillation and acute on chronic diastolic heart failure Recent acute influenza B pneumonia Baseline severe COPD emphysema Hypokalemia, hypomagnesemia, hypoglycemia Plan: We will monitor and observe off of propofol drip for weaning would be initiated once patient is more awake and alert Continue ventilator support with adjustment as indicated above Gentle baseline hydration with intermittent crystalloid boluses to support blood pressure vasopressors as well will keep systolic blood pressure over 90 and monitor observe for adequate perfusion as well as urine output patient will likely need a central line if continued to require levofed with escalating dose Freeman culture including urine and blood and sputum Continuation with Tamiflu along with the IV antibiotics with vancomycin patient already has been on Rocephin and Zithromax we'll maintain for now Maintain patient on DVT and peptic ulcer disease prophylaxis Will continue and maintain on bronchodilators Continue and maintain on steroids with slow taper Fever control with IV Tylenol and Motrin/Tylenol as needed Replacement of electrolytes Nutritional support with tube feed Patient is on oral amiodarone along with being digitalized, cardiovascular services following, computed tomography scan of the head is pending Time with Patient: Greater than 30
[2017-11-03] MEDS: cefTRIAXone IN SWFI 1,000 MG/10 ML SYRINGE IVP SCH (15:16)
--- NOTE | 2017-11-04 | PN ---
PROGRESS NOTE DATE OF SERVICE: 11/03/17 PRESENT COMPLAINT: Intubated. INTERVAL HISTORY: The patient presented with acute influenza B pneumonitis, metabolic encephalopathy and was intubated. The patient remains in the ICU on the ventilator. The patient has been off propofol since yesterday evening. Ventilator FiO2 40%, PEEP of 5. Atrial flutter/fibrillation remains uncontrolled. Dose of amiodarone was increased. Tube feeding is running at 49 mL an hour. The patient on Levophed 3 mics. Some thick secretions also present. Also patient is on IV heparin. REVIEW OF SYSTEMS: Patient intubated. CURRENT MEDICATIONS: Reviewed that include amiodarone 200 mg t.i.d., and IV azithromycin, IV ceftriaxone, IV digoxin, IV heparin, Levophed as above, Tamiflu and IV vancomycin. PHYSICAL EXAMINATION: Afebrile. Pulse 110. Respiration 23, blood pressure 97/53 on the ventilator. Eyes: Pupils are equal. Conjunctivae normal. HEENT: External appearance of nose and ears normal. Oral cavity: Endotracheal tube in place. Neck JVD unable to assess. Mass not palpable. Respiratory effort normal. LUNGS: Diminished breath sounds. Cardiovascular: HEART: Sounds irregular. No edema. ABDOMEN: Soft, nontender. Liver and spleen not palpable. Neurological pupils are equal. Neurological patient got chronic weakness of the lower extremities. INVESTIGATIONS: White count 7.8, hemoglobin 10.8, potassium 4.2. BUN and creatinine is normal. Chest x-ray, bilateral airspace disease. ASSESSMENT: 1. Bilateral pneumonia suspect gram-negative organism in a patient also to have influenza B pneumonitis causing acute hypoxic respiratory failure and sepsis and being on the ventilator, slow to respond. 2. Acute metabolic encephalopathy with acute delirium present on admission. The patient is still not waking up after being off sedation for over 24 hours. 3. Atrial flutter fibrillation with rapid ventricular rate persisting. The patient's last the patient did have cardioversion. 4. Septic shock. The patient remains to be on Levophed. 5. Hyperlipidemia. 6. Chronic medical debility. Patient uses a mechanical lift at the baseline for transfer. 7. Acute chronic obstructive pulmonary disease exacerbation in an ex-smoker. 8. Chronic T9-T10 vertebral body fracture, likely from osteoporosis. 9. Restless leg syndrome. 10.Chronic insomnia. 11.Right rotator cuff tear. 12.Prognosis remains poor. Continue above medications as listed in ,y interval history. Tube feeding to continue. Follow with Critical Care. MMODL / IJN: [id number] /
[2017-11-04] MEDS: SODIUM CHLORIDE 0.45% 1,000 ML IV SCH ×2 (00:52→08:34)
[2017-11-04] MEDS: VANCOMYCIN 1,500 MG in SODIUM CHLORIDE 0.9% 250 ML IVPB SCH (00:52)
[2017-11-04 04:32] LABS: Anisocytosis Slight; HCT 33.2 % (34.0-46.0); HGB 10.5 gm/dL (11.4-16.0); Hypochromasia Moderate; MCH 29.5 pg (25.0-35.0); MCHC 31.6 g/dL (31.0-37.0); MCV 93.5 fL (80.0-100.0); Mean Platelet Volume 8.6; Platelet Count 196 k/uL (150-450); RBC 3.55 m/uL (3.80-5.40); RDW 16.2 % (11.5-15.5); WBC 8.3 k/uL (3.8-10.6)
[2017-11-04 05:23] LABS: Anion Gap 5 mmol/L; Blood Urea Nitrogen 10 mg/dL (7-17); Calcium 7.5 mg/dL (8.4-10.2); Carbon Dioxide 21 mmol/L (22-30); Chloride 115 mmol/L (98-107); Glucose 99 mg/dL (74-99); Magnesium 2.2 mg/dL (1.6-2.3); Potassium 4.2 mmol/L (3.5-5.1); Sodium 141 mmol/L (137-145)
[2017-11-04 05:29] LABS: ABG Base Excess -3.9 mmol/L; ABG HCO3 21 mmol/L (21-25); ABG Oxygen Saturation 98.7 % (94-97); ABG PCO2 34 mmHg (35-45); ABG PO2 134 mmHg (83-108); ABG TCO2 22 mmol/L (19-24)
[2017-11-04] MEDS: HEPARIN SOD,PORK IN 0.45% NACL 25,000 UNIT in 0.45% NACL 1 500ML.BAG IV SCH (06:02)
[2017-11-04 06:08] LABS: Band Neutrophils % 8 %; Eosinophils # (M) 0.66 k/uL (0-0.7); Lymphocytes # (M) 1.33 k/uL (1.0-4.8); Metamyelocytes % 6 %; Monocytes # (M) 0.42 k/uL (0-1.0); Myelocytes # (M) 0.17 k/uL (0); Myelocytes % 2 %; Neutrophils % (M) 57 %; Nucleated Red Blood Cells 0 /100 WBC (0-0); Total Cells Counted 200
[2017-11-04 06:10] LABS: Poikilocytosis (M) Present; Polychromasia Present
[2017-11-04] MEDS: ALBUTEROL NEBULIZED 2.5 MG/3 ML INHALATION PRN ×2 (07:29→11:14)
[2017-11-04] MEDS: OSELTAMIVIR 60 MG/10 ML ORAL SYRINGE PO SCH (08:33)
[2017-11-04] MEDS: NOREPINEPHRIN 16 MG-0.9%NS PMX 16 MG/250 ML ML IV SCH (08:34)
[2017-11-04] MEDS: CHLORHEXIDINE GLUCONATE 15 ML CUP MUCOUS MEM SCH (08:35)
[2017-11-04] MEDS: AMIODARONE 200 MG TAB PO SCH (08:35)
[2017-11-04] MEDS: DIGOXIN 250 MCG/ML 2 ML AMP IVP SCH (08:35)
[2017-11-04] MEDS: PANTOPRAZOLE 40 MG/10 ML VIAL IV SCH (08:36)
--- NOTE | 2017-11-04 08:40 | XR ---
EXAMINATION TYPE: XR chest 1V portable DATE OF EXAM: 11/04/2017 COMPARISON: 11/03/2017 HISTORY: Shortness of breath TECHNIQUE: Single frontal view of the chest is obtained. FINDINGS: NG tube has been advanced and appears in good position. Bilateral consolidation and pleura l effusion noted. Central line and ET tube stable and approximately 1 cm above franco.. No pneumothor ax. IMPRESSION: 1. Bilateral airspace disease and pleural effusion correlate for diffuse pneumonia versus pulmonary e patric. More consolidated area in the right upper lobe suspicious for pneumonia.
[2017-11-04 10:11] VITALS: BP 121/69
--- NOTE | 2017-11-04 11:15 | P.PN ---
Subjective Progress Note Date: 11/04/17 This is a 72-year-old female with history of atrial fibrillation which was persistent. Patient had cardioversion and was maintaining sinus rhythm until patient is admitted now with pneumonia. Patient is intubated for respiratory failure and sepsis. Patient is still hypotensive. Patient is on amiodarone and also digoxin. I'm going to increase the dose of the amiodarone to 600 mg. We'll also obtain a digoxin level tomorrow. Chest x-ray still shows bilateral infiltrates, more on the right side.. Rest of the management as for pulmonary Patient converted to sinus rhythm this morning. Heart rate in the 60s. Patient chest x-ray shows some resolving pneumonia. There is a dense infiltrate in the right side. Apparently patient is off sedation. She still is not responding. May have an element of hypoxic encephalopathy. From Cardec standpoint, I'm going Back the dose of the amiodarone to 200 mg by mouth twice a day. Rest of the medication will be continued. 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 Objective - Vital Signs Vital signs: Vital Signs Temp 98.2 F 11/04/17 08:00 Pulse 61 11/04/17 10:00 Resp 21 11/04/17 10:00 BP 121/69 11/04/17 10:00 Pulse Ox 99 11/04/17 10:00 Intake & Output 11/03/17 11/04/17 11/04/17 18:59 06:59 18:59 Intake Total 2444.164 2345.872 489.063 Output Total 555 775 200 Balance 8786.143 6063.872 289.063 Weight 88.8 kg 91.2 kg Intake: IV 1550 1272 209 0.9 for pressure 72 9 Azithromycin 500 mg In 250 Sodium Chloride 0.9% 250 ml @ 125 mls/hr IVPB Q24H [facility] Rx#:[id number] Magnesium Sulfate-D5w Pmx 100 1 gm In Dextrose/Water 1 100ml.bag @ 100 mls/hr IVPB Q1H [facility] Rx#: [id number] Sodium Chloride 0.45% 1, 1200 1200 200 000 ml @ 100 mls/hr IV . Q10H [facility] Rx#:[id number] Intake, IV Titration 118.164 444.872 103.063 Amount Heparin Sod,Pork in 0.45% 111.573 388.427 NaCl 25,000 unit In 0.45 % NaCl 1 500ml.bag @ 12 UNITS/KG/HR 19.32 mls/hr IV .Q24H [facility] Rx#: [id number] Norepinephrin 16 mg-0.9% 5.471 56.445 3.063 Ns Pmx 16 mg In 250 ml @ Titrate IV .Q0M [facility] Rx#: [id number] Propofol 1,000 mg In 1.12 Empty Bag 1 bag @ Titrate IV .Q0M [facility] Rx#: [id number] Sodium Chloride 0.45% 1, 100 000 ml @ 100 mls/hr IV . Q10H [facility] Rx#:[id number] Tube Feeding 686 539 147 Other 90 90 30 Output: Urine 555 775 200 Other: Voiding Method Indwelling Catheter Indwelling Catheter Indwelling Catheter # Bowel Movements 1 ABP, PAP, CO, CI - Last Documented Arterial Blood Pressure 142/66 - Exam GENERAL EXAM: Patient is intubated and of sedation. The patient is not responding. HEENT: Normocephalic. Normal reaction of pupils, equal size, normal range of extraocular motion. No erythema or exudates in the throat. NECK: No masses, no nuchal rigidity. CHEST: No chest wall deformity. LUNGS: Diffuse rhonchi HEART: [S1 and S2 normal. Irregular rhythm ABDOMEN: No hepatosplenomegaly, normal bowel sounds, no guarding or rigidity. SKIN: No rashes CENTRAL NERVOUS SYSTEM: Deferred EXTREMITIES: Edema - Labs CBC & Chem 7: 11/04/17 04:20 11/04/17 04:45 Labs: Abnormal Lab Results - Last 24 Hours (Table) 11/03/17 11/04/17 11/04/17 Range/Units 18:03 04:20 04:45 RBC 3.55 L (3.80-5.40) m/uL Hgb 10.5 L (11.4-16.0) gm/dL Hct 33.2 L (34.0-46.0) % RDW 16.2 H (11.5-15.5) % Metamyelocytes # (Man) 0.50 H (0) k/uL Myelocytes # (Manual) 0.17 H (0) k/uL APTT 62.1 H (22.0-30.0) sec ABG pCO2 (35-45) mmHg ABG pO2 (83-108) mmHg ABG O2 Saturation (94-97) % Chloride 115 H (98-107) mmol/L Carbon Dioxide 21 L (22-30) mmol/L Calcium 7.5 L (8.4-10.2) mg/dL 11/04/17 11/04/17 Range/Units 05:26 05:30 RBC (3.80-5.40) m/uL Hgb (11.4-16.0) gm/dL Hct (34.0-46.0) % RDW (11.5-15.5) % Metamyelocytes # (Man) (0) k/uL Myelocytes # (Manual) (0) k/uL APTT 51.4 H (22.0-30.0) sec ABG pCO2 34 L (35-45) mmHg ABG pO2 134 H (83-108) mmHg ABG O2 Saturation 98.7 H (94-97) % Chloride (98-107) mmol/L Carbon Dioxide (22-30) mmol/L Calcium (8.4-10.2) mg/dL Microbiology - Last 24 Hours (Table) 10/30/17 09:00 Blood Culture - Preliminary Blood No Growth after 120 hours 10/30/17 17:30 Blood Culture - Preliminary Blood No Growth after 96 hours Assessment and Plan (1) Influenza B Current Visit: Yes Status: Acute Code(s): J10.1 - FLU DUE TO OTH IDENT INFLUENZA VIRUS W OTH RESP MANIFEST SNOMED Code(s): 37791077 (2) Pneumonia Current Visit: Yes Status: Acute Code(s): J18.9 - PNEUMONIA, UNSPECIFIED ORGANISM SNOMED Code(s): 757286577 (3) Atrial fibrillation with RVR Current Visit: No Status: Acute Code(s): I48.91 - UNSPECIFIED ATRIAL FIBRILLATION SNOMED Code(s): 984118845222573 (4) COPD (chronic obstructive pulmonary disease) Current Visit: No Status: Acute Code(s): J44.9 - CHRONIC OBSTRUCTIVE PULMONARY DISEASE, UNSPECIFIED SNOMED Code(s): 69638229 Plan: Patient is back in sinus rhythm. I'm going to cut back the dose of the amiodarone to 200 mg twice a day. If patient continues to maintain sinus rhythm , I will discontinue Lanoxin tomorrow. Further management as per the construction person.
[2017-11-04] MEDS: cefTRIAXone IN SWFI 1,000 MG/10 ML SYRINGE IVP SCH (12:23)
[2017-11-04 12:32] VITALS: TEMP 98.6
[2017-11-04] MEDS: AZITHROMYCIN 500 MG in SODIUM CHLORIDE 0.9% 250 ML IVPB SCH (13:49)
[2017-11-04 14:04] LABS: ABG Base Excess -5.2 mmol/L; ABG HCO3 22 mmol/L (21-25); ABG PCO2 52 mmHg (35-45); ABG PH 7.24 (7.35-7.45); ABG PO2 97 mmHg (83-108); ABG TCO2 24 mmol/L (19-24)
[2017-11-04] MEDS ORDERED: SODIUM CHLORIDE 0.45% 1,000 ML IV SCH (14:15)
--- NOTE | 2017-11-04 14:54 | P.PN ---
Subjective Progress Note Date: 11/04/17 Principal diagnosis: Right-sided acute secondary bacterial pneumonia, influenza B pneumonia, acute hypoxic respirator failure, severe sepsis and septic shock, volume depleted and dehydrated status atrial fibrillation with a rapid ventricular response 11/04/2017, patient seen and evaluated examined during the rounds he remains off of propofol drip for almost 30 hours now on no sedating medicine on narcotics and benzodiazepine has been given she does have intermittent episodes of coughing during deep suctioning she does gram Mrs. with a spontaneous movement extremity I try to open her eyes but she prefers to keep it for forcibly shut. Labs and chest x-ray from today reviewed arterial blood gas reviewed as well, patient to has been tolerating every feed well computed tomography scan of the head findings reviewed, patient remains on full ventilator support with assist control rate of 20 breathing in mid 20s, tidal volume of 500, 5 of PEEP and 40% oxygen patient was placed on CPAP of 5 and pressure support of 5 was monitor observe for half an hour and arterial blood gas was done patient noted to have evidence of developing hypercapnia and respiratory acidosis, and determination off the the weaning trial patient became extremely short of breath tachypneic tachycardic and went into respiratory distress was resume on assist control mode, respiratory secretions remains thick and tenacious, she is making good urinesignificant arrhythmia besides atrial fibrillation and has been noted however patient is reverted back to sinus rhythm on my very detailed discussion with the patient's family they expressed their wishes to be no code and they may consider comfort measures if no significant improvement is seen November 03 2017, patient seen and evaluated examined care plan discussed with the patient's family as well as nursing staff at length critical care time spent 35 minutes, computed tomography scan of the head performed no acute pathology has been identified, patient has been placed on propofol drip for that and has been continued overnight. This morning during evaluation patient has been off of propofol for almost 5 hours some facial grimaces has been seen but however if she is still not opening her eyes she is on 3 mics of levo fed drip last set of blood pressure systolic was over 100, vent settings reviewed currently patient is on assist control rate of 20 breathing about 24-26, tidal volume is 500, 5 of PEEP, and 40% oxygen, arterial blood gas on this setting reviewed, urine output is adequate patient is tolerating every feed well no evidence of diarrhea is seen,secretions are thick tenacious as though, chest x- ray done today reviewed small basal pleural effusion cannot be excluded dense consolidation predominantly on the right side compared to left side, patient remains on heparin drip and is therapeutic, computed tomography scan of the head revealed age-related atrophic changes and some chronic maxillary sinusitis seen otherwise unremarkable 11/02/2017, patient seen and evaluated examined critical care time spent 45 minutes, patient's the propofol drip has been discontinued but remain somnolent slightly anxious with slight tachypnea and respiratory rate is in mid 20s, patient remains on levo fed drip on the 5-6 mics blood pressure ranging from systolic is 9210 intermittent tachycardia is noted with heart rate of 110-120 remains in atrial fibrillation, patient is off of amiodarone drip has been started on oral, being digitalized with an extra dose of digoxin has been given , culture results and reports are reviewed patient is growing MSSA in respiratory secretions, patient remains on Rocephin, vancomycin and azithromycin , chest x-ray laboratory data reviewed patient remains on the lower side on potassium and magnesium being replaced, patient has been off of Xaralto for 72 hours and IV heparin drip has been started for now I have ordered a computed tomography scan of the head, care plan discussed with the family at length patient is not ready for weaning and/or extubation 11/01/2017, patient seen and evaluated examined during the rounds clinically doing well this is a delayed entry note for services provided on November 01, critical care time spent 35 minutes, patient is clinically improved in terms of severe sepsis and hypertension as levo fed drip is gradually being titrated down urine output remains adequate when setting remains same with assist control of 1220 tidal volume of 505 of PEEP and 40% oxygen and developed problems associated with atrial fibrillation and rapid ventricular response with intermittent episodes of tachycardia with some a flutter, cardiovascular services has been consulted patient has been started on IV amiodarone as well as being digitalized, unable to lower down the propofol drip as patient has episodes of agitation and tachycardia October 31 2017, patient seen eval examined during the rounds critical care time spent 35 minutes, Care plan discussed with RN at length patient of note that continued to decompensate overnight requiring intubation postintubation chest x-ray reviewed and compared with prior x-ray dense consolidation in right midlung field and right lower lobe is noted stable ET tube cardiomegaly and is interstitial edema otherwise has been noted postintubation slight improvement in oxygenation as well as hemodynamics noted but continued to require significant amount of levo fed, patient is currently on the 12 mics of levo fed along with 40 mics of propofol and also getting IV normal saline 100 mL an hour she is sedated with propofol drip she has adequate urine output, 10 respiratory secretions are noted patient has a OG tube plantar and to initiate tube feed, patient will need a central line as well consent is being obtained, currently patient is on assist control rate of 20 tidal volume of 500, 5 of PEEP and the FiO2 is gradually being titrated from 100% to 50% urine and blood culture results are pending sputum culture are pending as well, noted rise in white cell count and leukocytosis likely multifactorial, arterial blood gases reviewed and ventilator setting has been adjusted, noted severe hypokalemia and hypomagnesemia patient is being replaced on protocol, also noted very high BNP level and mildly elevated troponin we'll monitor and observed, hypoglycemia that was noted previously has improved though Mrs. 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 wire chief subsequently switched to al , she was seen and evaluated examined patient was hypotensive as well had a fluid challenge of crystalloid 500 mL and another 500 mL are being given patient oxygenation is fairly satisfactory on BiPAP but she remains tachypneic and somnolent noted that she has received a dose of Lasix as well but however patient clearly is volume depleted rather benefit from fluid resuscitation rather than diuresis, further workup and evaluation revealed patient has a influenza B pneumonia and possibly secondary bacterial pneumonia as well patient is being monitor observe in the ICU if decompensated would consider doing intubation continue fluid resuscitation and vasopressors, patient will likely need a central line as well Patient recently hospitalized for acute exacerbation of CHF rapid atrial fibrillation and acute diastolic heart failure she had bilateral pleural effusion which are being monitored and observed improved with therapy, patient was seen and evaluated by cardiovascular services and she underwent a elective cardioversion According to the report she also was thought to have pneumonia in an ECF. Patient has a fever as well. Patient herself is somewhat demented but denies any current pain denies any problem breathing currently. Patient denies any abdominal pain. There's been no report of any vomiting or diarrhea. Patient is on Tamiflu. Overall patient is a poor historian not much detail can be obtained from her Objective - Vital Signs Vital signs: Vital Signs Temp 98.6 F 11/04/17 12:00 Pulse 68 11/04/17 14:00 Resp 20 11/04/17 14:00 BP 121/69 11/04/17 11:00 Pulse Ox 96 11/04/17 14:00 Intake & Output 11/03/17 11/04/17 11/04/17 18:59 06:59 18:59 Intake Total 2444.164 2345.872 975.063 Output Total 555 775 340 Balance 9283.919 7064.872 635.063 Weight 88.8 kg 91.2 kg Intake: IV 1550 1272 518 0.9 for pressure 72 18 Azithromycin 500 mg In 250 Sodium Chloride 0.9% 250 ml @ 125 mls/hr IVPB Q24H [facility] Rx#:[id number] Magnesium Sulfate-D5w Pmx 100 1 gm In Dextrose/Water 1 100ml.bag @ 100 mls/hr IVPB Q1H [facility] Rx#: [id number] Sodium Chloride 0.45% 1, 1200 1200 500 000 ml @ 100 mls/hr IV . Q10H [facility] Rx#:[id number] Intake, IV Titration 118.164 444.872 103.063 Amount Heparin Sod,Pork in 0.45% 111.573 388.427 NaCl 25,000 unit In 0.45 % NaCl 1 500ml.bag @ 12 UNITS/KG/HR 19.32 mls/hr IV .Q24H [facility] Rx#: [id number] Norepinephrin 16 mg-0.9% 5.471 56.445 3.063 Ns Pmx 16 mg In 250 ml @ Titrate IV .Q0M [facility] Rx#: [id number] Propofol 1,000 mg In 1.12 Empty Bag 1 bag @ Titrate IV .Q0M [facility] Rx#: [id number] Sodium Chloride 0.45% 1, 100 000 ml @ 100 mls/hr IV . Q10H [facility] Rx#:[id number] Tube Feeding 686 539 294 Other 90 90 60 Output: Urine 555 775 340 Other: Voiding Method Indwelling Catheter Indwelling Catheter Indwelling Catheter # Bowel Movements 1 ABP, PAP, CO, CI - Last Documented Arterial Blood Pressure 139/63 - Exam GENERAL: Patient is well-developed and well-nourished. Patient appears to be well- hydrated and is in mild to moderate respiratory distress on ventilator ENT: Neck is soft and supple. Neck veins are prominent but no significant JVD noted No significant lymphadenopathy is noted. Oropharynx is clear. Moist mucous membranes. EYES: The sclera were anicteric and conjunctiva were pink and moist. pupils were equal round and reactive to light. Eyelids were unremarkable. PULMONARY: Patient has Rales diffusely, with an expiratory rhonchi and crackles they're present bilaterally patient has slightly prolonged expiratory phase as well, bronchial breath sounds are predominately present on the right side posteriorly up to one third of the lung CARDIOVASCULAR: There is a regular rate and rhythm without any murmurs gallops or rubs. ABDOMEN: Soft and nontender with normal bowel sounds. No palpable organomegaly was noted. There is no palpable pulsatile mass. SKIN: Skin is clear with no lesions or rashes and otherwise unremarkable. NEUROLOGIC: Patient is sedated with propofol drip, overall neuro exam is stable no changes been noted MUSCULOSKELETAL: Normal extremities with adequate strength and full range of motion. LYMPHATICS: No significant lymphadenopathy is noted PSYCHIATRIC: No obvious distress is present from mental standpoint - Labs CBC & Chem 7: 11/04/17 04:20 11/04/17 04:45 Labs: Abnormal Lab Results - Last 24 Hours (Table) 11/03/17 11/04/17 11/04/17 Range/Units 18:03 04:20 04:45 RBC 3.55 L (3.80-5.40) m/uL Hgb 10.5 L (11.4-16.0) gm/dL Hct 33.2 L (34.0-46.0) % RDW 16.2 H (11.5-15.5) % Metamyelocytes # (Man) 0.50 H (0) k/uL Myelocytes # (Manual) 0.17 H (0) k/uL APTT 62.1 H (22.0-30.0) sec ABG pH (7.35-7.45) ABG pCO2 (35-45) mmHg ABG pO2 (83-108) mmHg ABG O2 Saturation (94-97) % Chloride 115 H (98-107) mmol/L Carbon Dioxide 21 L (22-30) mmol/L Calcium 7.5 L (8.4-10.2) mg/dL 11/04/17 11/04/17 11/04/17 Range/Units 05:26 05:30 14:01 RBC (3.80-5.40) m/uL Hgb (11.4-16.0) gm/dL Hct (34.0-46.0) % RDW (11.5-15.5) % Metamyelocytes # (Man) (0) k/uL Myelocytes # (Manual) (0) k/uL APTT 51.4 H (22.0-30.0) sec ABG pH 7.24 L (7.35-7.45) ABG pCO2 34 L 52 H (35-45) mmHg ABG pO2 134 H (83-108) mmHg ABG O2 Saturation 98.7 H 98.0 H (94-97) % Chloride (98-107) mmol/L Carbon Dioxide (22-30) mmol/L Calcium (8.4-10.2) mg/dL Microbiology - Last 24 Hours (Table) 10/30/17 09:00 Blood Culture - Preliminary Blood No Growth after 120 hours 10/30/17 17:30 Blood Culture - Preliminary Blood No Growth after 96 hours - Imaging and Cardiology Chest x-ray: report reviewed, image reviewed (Dense consolidation in the right midlung field areas present) Assessment and Plan Assessment: Acute onset of the atrial flutter/fibrillation with rapid ventricular response Severe sepsis and septic shock related related to right-sided pneumonia predominantly involving the right perihilar area and as well as the right lower lobe Suspect secondary bacterial pneumonia gram-negative and/or or Staph cannot be excluded Acute hypoxic respiratory failure related to that Chronic paroxysmal atrial fibrillation and acute on chronic diastolic heart failure Recent acute influenza B pneumonia Baseline severe COPD emphysema Hypokalemia, hypomagnesemia, hypoglycemia Plan: We will monitor and observe off of propofol drip for weaning to be continued as tolerated, care plan discussed with the patient family as noted above Continue ventilator support with adjustment as indicated above Gentle baseline hydration with intermittent crystalloid boluses to support blood pressure vasopressors as well will keep systolic blood pressure over 90 and monitor observe for adequate perfusion as well as urine output patient will likely need a central line if continued to require levofed with escalating dose Freeman culture including urine and blood and sputum Continuation with Tamiflu along with the IV antibiotics with vancomycin patient already has been on Rocephin and Zithromax we'll maintain for now Maintain patient on DVT and peptic ulcer disease prophylaxis Will continue and maintain on bronchodilators Continue and maintain on steroids with slow taper Fever control with IV Tylenol and Motrin/Tylenol as needed Replacement of electrolytes Nutritional support with tube feed Patient is on oral amiodarone along with being digitalized, cardiovascular services following, computed tomography scan of the head is pending Overall prognosis is very guarded with likely of off recovery is poor Time with Patient: Greater than 30 (Critical care time spent over 40 minutes)
[2017-11-04] MEDS ORDERED: VANCOMYCIN TROUGH DUE 1 EACH MISC MISCELLANE ONE (15:00)
[2017-11-04] MEDS ORDERED: SCOPOLAMINE 1.5MG/72HR PATCH TRANSDERM PRN (15:24)
[2017-11-04] MEDS ORDERED: MORPHINE SULFATE (100 MG/2 ML) 100 MG in SODIUM CHLORIDE 0.9% 100 ML IV SCH (15:30)
[2017-11-04 17:13] VITALS: PULSE 54; RESP 24
--- NOTE | 2017-11-05 03:50 | DS ---
DISCHARGE SUMMARY DATE OF ADMISSION: 10/30/17 DATE OF DISCHARGE: 11/04/17 FINAL DIAGNOSES: 1. Bilateral pneumonia suspect gram-negative organism in a patient also positive for influenza pneumonitis causing acute hypoxic respiratory failure and sepsis, going on the ventilator. 2. Acute metabolic encephalopathy with acute delirium present on admission. 3. Atrial flutter fibrillation persistent with rapid ventricular rate. 4. Septic shock. The patient requiring Levophed. 5. Hyperlipidemia. 6. Chronic medical debility. The patient has a baseline requiring a mechanical lift for transfers. 7. Acute chronic obstructive pulmonary disease exacerbation in an ex-smoker. 8. Chronic T9-T10 vertebral body fracture, likely from osteoporosis. 9. Restless leg syndrome. 10.Chronic insomnia. 11.Right rotator cuff tear. HOSPITAL COURSE: This patient who was recently in the hospital, presented with septic picture initially with influenza B pneumonitis rather delirious and very short of breath. Then the patient had a respiratory failure, transferred to the ICU and intubated. The patient's family because of the poor prognosis and patient no significant improvement, continued to deteriorate and after I discussed, decided to make the patient comfort care. DISPOSITION: GIP for comfort care for respiratory distress. ADVANCED CARE PLANNING: Met with the family and because of poor condition, decided to proceed with hospice care. [facility] is being consulted for the same and comfort medication including scopolamine, morphine, Ativan will be used with terminal extubation. Questions were answered. This additionally took about 20 minutes. Discharge to inpatient hospice. CONSULTATIONS: Dr. Nunez from Pulmonary, Dr. Mclean from Cardiology. ELIO / THOMASN: [id number] /
--- NOTE | 2017-12-16 05:49 | DS ---
DISCHARGE SUMMARY ADDENDUM TO DISCHARGE SUMMARY: DATE OF ADMISSION: 10/30/2017 DATE OF DISCHARGE: 11/04/2017 ON EXAMINATION: LUNGS: Decreased breath sounds. HEART: Sounds irregular. ABDOMEN: Soft, nontender. Patient intubated. MMODL / IJN: [id number] /
== END 2017-11-04 17:23 | disposition hospice, inpatient (51) | DRG 870 ==
LOC: EC 08:42 → 6SEL 11:01 → 6ICU 16:38
PROVIDERS: ADMIT Hospitalist; ATTEND Hospitalist
PROC: 5A1955Z Respiratory Ventilation, Greater than 96 Consecutive Hours (ICD-10-PCS; principal; 2017-10-30)
PROC: 5A09357 Assistance with Respiratory Ventilation, Less than 24 Consecutive Hours, Continuous Positive Airway Pressure (ICD-10-PCS; 2017-10-30)
PROC: 05HM33Z Insertion of Infusion Device into Right Internal Jugular Vein, Percutaneous Approach (ICD-10-PCS; 2017-10-30)
DX: A41.50 Gram-negative sepsis, unspecified (principal); J96.01 Acute respiratory failure with hypoxia; R65.21 Severe sepsis with septic shock; J10.08 Influenza due to other identified influenza virus with other specified pneumonia; I50.33 Acute on chronic diastolic (congestive) heart failure; J44.0 Chronic obstructive pulmonary disease with (acute) lower respiratory infection; G93.41 Metabolic encephalopathy; E87.2 Acidosis; M80.08XA Age-related osteoporosis with current pathological fracture, vertebra(e), initial encounter for fracture; I11.0 Hypertensive heart disease with heart failure; E83.42 Hypomagnesemia; I48.92 Unspecified atrial flutter; J44.1 Chronic obstructive pulmonary disease with (acute) exacerbation; I48.0 Paroxysmal atrial fibrillation; I48.2 Chronic atrial fibrillation; E86.0 Dehydration; E03.9 Hypothyroidism, unspecified; E16.2 Hypoglycemia, unspecified; E78.5 Hyperlipidemia, unspecified; E87.6 Hypokalemia; F03.90 Unspecified dementia, unspecified severity, without behavioral disturbance, psychotic disturbance, mood disturbance, and anxiety; F41.0 Panic disorder [episodic paroxysmal anxiety]; F51.04 Psychophysiologic insomnia; G25.81 Restless legs syndrome; J10.1 Influenza due to other identified influenza virus with other respiratory manifestations; J32.0 Chronic maxillary sinusitis; K21.9 Gastro-esophageal reflux disease without esophagitis; M75.101 Unspecified rotator cuff tear or rupture of right shoulder, not specified as traumatic; F32.9 Major depressive disorder, single episode, unspecified; R32 Unspecified urinary incontinence; R74.8 Abnormal levels of other serum enzymes; R26.9 Unspecified abnormalities of gait and mobility; R15.9 Full incontinence of feces; Z79.01 Long term (current) use of anticoagulants; Z79.899 Other long term (current) drug therapy; Z96.653 Presence of artificial knee joint, bilateral; Z87.891 Personal history of nicotine dependence; Z87.01 Personal history of pneumonia (recurrent); Z90.49 Acquired absence of other specified parts of digestive tract; Z88.5 Allergy status to narcotic agent; Z88.0 Allergy status to penicillin; Z88.8 Allergy status to other drugs, medicaments and biological substances
CPT/HCPCS: 36415; 36600; 70450; 71045; 71046; 80048; 80053; 80162; 80202; 81001; 82550; 82553; 82805; 83605; 83735; 83880; 84100; 84132; 84484; 85025; 85610; 85730; 87040; 87070; 87077; 87186; 87205; 87324; 87502; 93005; 94002; 94003; 94640; 94660; 96361; 96365; 96366; 96367; 96375; 99285

== ENCOUNTER 2017-11-04 17:27 | Inpatient (IN) | payer MEDICAID ==
[2017-11-04] MEDS ORDERED: LORazepam 2 MG/ML INJ IV PRN ×2 (18:08→18:09)
[2017-11-04] MEDS ORDERED: SCOPOLAMINE 1.5MG/72HR PATCH TRANSDERM PRN (18:10)
[2017-11-04] MEDS ORDERED: ATROPINE OPHTH SOLN 1% 5ML BTL SUBLINGUAL PRN (18:11)
[2017-11-04] MEDS ORDERED: ACETAMINOPHEN SUPPOSITORY 650 MG SUPP RECTAL PRN (18:11)
[2017-11-04] MEDS ORDERED: ONDANSETRON 4 MG/2 ML VIAL IVP PRN (18:12)
[2017-11-04] MEDS ORDERED: MORPHINE SULFATE 4 MG/ML SYRINGE IV ONE (18:15)
[2017-11-04] MEDS ORDERED: MORPHINE SULFATE (100 MG/2 ML) 100 MG in SODIUM CHLORIDE 0.9% 100 ML IV SCH (18:15)
[2017-11-04] MEDS ORDERED: LORazepam 2 MG/ML INJ IV ONE (18:15)
[2017-11-05 08:16] VITALS: BP 78/34
[2017-11-05 08:35] VITALS: PULSE 62; RESP 14; TEMP 99
--- NOTE | 2017-11-05 18:27 | P.PN ---
Subjective Progress Note Date: 11/05/17 Principal diagnosis: Right-sided acute secondary bacterial pneumonia, influenza B pneumonia, acute hypoxic respirator failure, severe sepsis and septic shock, volume depleted and dehydrated status atrial fibrillation with a rapid ventricular response Detailed discussion with the family were done family elected for comfort measures in that regard patient was extubated hospice was consulted patient has been placed on hospice Objective - Vital Signs Vital signs: Vital Signs Temp 99.0 F 11/05/17 07:00 Pulse 62 11/05/17 07:00 Resp 14 11/05/17 07:00 BP 78/34 11/04/17 23:00 Pulse Ox 93 L 11/04/17 23:00 Intake & Output 11/04/17 11/05/17 11/05/17 18:59 06:59 18:59 Intake Total 2.244 9.306 Output Total 255 Balance 2.244 -245.694 Weight 91 kg Intake: Intake, IV Titration 2.244 9.306 Amount Morphine Sulfate (100 mg/ 2.244 9.306 2 ml) 100 mg In Sodium Chloride 0.9% 100 ml @ 2 MG/HR 2.04 mls/hr IV . Q24H [facility] Rx#:[id number] Output: Urine 255 Other: Voiding Method Indwelling Catheter Indwelling Catheter - Exam Patient seen and evaluated examined she is on morphine as needed no apparent distress or pain or discomfort is present family is present at bedside Assessment and Plan Assessment: Acute onset of the atrial flutter/fibrillation with rapid ventricular response Severe sepsis and septic shock related related to right-sided pneumonia predominantly involving the right perihilar area and as well as the right lower lobe Suspect secondary bacterial pneumonia gram-negative and/or or Staph cannot be excluded Acute hypoxic respiratory failure related to that Chronic paroxysmal atrial fibrillation and acute on chronic diastolic heart failure Recent acute influenza B pneumonia Baseline severe COPD emphysema Hypokalemia, hypomagnesemia, hypoglycemia Patient has been enrolled in hospice we'll sign off Time with Patient: Less than 30
--- NOTE | 2017-11-17 21:18 | DS ---
DISCHARGE SUMMARY DATE OF ADMISSION: 11/04/2017. DATE PATIENT : 11/05/2017. PROBABLE CAUSE OF : Bilateral pneumonia. OTHER MEDICAL CONDITIONS: Advanced chronic obstructive pulmonary disease in an ex-smoker. HOSPITAL COURSE: This is a patient admitted to inpatient GIP/hospice service for symptom control under hospice care. Medications were used to keep her comfortable. The patient succumbed to her underlying condition. MMODL / IJN: [id number] /
== END 2017-11-05 16:41 | disposition expired | DRG 951 ==
LOC: 6ICU 17:27
PROVIDERS: ADMIT Hospitalist; ATTEND Hospitalist
DX: Z51.5 Encounter for palliative care (principal); A41.89 Other specified sepsis; J10.08 Influenza due to other identified influenza virus with other specified pneumonia; J96.01 Acute respiratory failure with hypoxia; R65.21 Severe sepsis with septic shock; I50.33 Acute on chronic diastolic (congestive) heart failure; J15.9 Unspecified bacterial pneumonia; I48.92 Unspecified atrial flutter; I48.0 Paroxysmal atrial fibrillation; Z66 Do not resuscitate; E83.42 Hypomagnesemia; J43.9 Emphysema, unspecified; E86.0 Dehydration; E16.2 Hypoglycemia, unspecified; E87.6 Hypokalemia; K21.9 Gastro-esophageal reflux disease without esophagitis; E78.5 Hyperlipidemia, unspecified; I10 Essential (primary) hypertension; F51.04 Psychophysiologic insomnia; G25.81 Restless legs syndrome; F41.9 Anxiety disorder, unspecified; F32.9 Major depressive disorder, single episode, unspecified; Z79.01 Long term (current) use of anticoagulants; Z79.51 Long term (current) use of inhaled steroids; Z79.899 Other long term (current) drug therapy; Z87.310 Personal history of (healed) osteoporosis fracture; Z96.653 Presence of artificial knee joint, bilateral; Z88.5 Allergy status to narcotic agent; Z88.0 Allergy status to penicillin; Z88.8 Allergy status to other drugs, medicaments and biological substances